=== PATIENT | female | born 1945 | race Caucasian/White ===

== ENCOUNTER 2019-10-16 11:10 | Outpatient (CLI) | payer MEDICARE, SELFPAY ==
--- NOTE | ~2019-10-16 | XR_ITS ---
EXAMINATION: XR abdomen/kub 1V INDICATION: Other specified symptoms in size involving the digestive abdominal and back pain, CVA ten derness TECHNIQUE: Supine views of the abdomen were obtained on 2 radiographs. COMPARISON: None FINDINGS: The bowel gas pattern is normal. Phleboliths are noted in the pelvis. There are no dilated loops of bowel. The visualized lung bases are clear. Changes of bilateral total hip arthroplasty are noted. Severe lumbar spondylosis is noted. IMPRESSION: 1. No radiographic correlate for the patient's symptoms. Reviewed, dictated and finalized at location A.
== END 2019-10-16 11:11 | disposition home or self-care (01) ==
LOC: ANHIMG 11:20
PROVIDERS: PCP Family Medicine; Visit Provider Nurse Practitioner Family
DX: R19.8 Other specified symptoms and signs involving the digestive system and abdomen (principal); M54.9 Dorsalgia, unspecified
CPT/HCPCS: 74018

== ENCOUNTER 2020-01-27 10:36 | Outpatient (NON) | payer MEDICARE, BC, SELFPAY ==
[2020-01-27 14:44] LABS: Influenza Control Positive
[2020-01-27 22:32] LABS: SARS-CoV-2 RNA PCR Negative
== END 2020-01-27 10:37 ==
PROVIDERS: PCP Family Medicine; Visit Provider Nurse Practitioner Family
DX: Z20.828 Contact with and (suspected) exposure to other viral communicable diseases (principal); J06.9 Acute upper respiratory infection, unspecified
CPT/HCPCS: 87635; 87804; C9803; U0003

== ENCOUNTER 2020-02-20 09:01 | Inpatient (IN) | payer MEDICARE, BC, SELFPAY ==
--- NOTE | ~2020-02-20 | XR_ITS ---
XR chest 1V portable 02/20/2020 10:44 Indication: Cough. Dyspnea. Procedure: AP portable chest Comparison: No prior studies for comparison. Findings: Heart size upper normal. No focal air space disease, pulmonary edema, pleural effusion or s uspected pneumothorax. No acute osseous abnormality. Impression: 1: No acute cardiopulmonary disease. Reviewed, dictated and finalized at location A. ISITIONS LOGISTICS ANALYST Impression: 1: No acute cardiopulmonary disease.
--- NOTE | ~2020-02-20 | CT_ITS ---
EXAMINATION: CT abdomen pelvis w con DATE: 02/20/2020 11:06 INDICATION: Abdominal pain TECHNIQUE: Computed tomography (CT) of the abdomen and pelvis was performed with 100 cc Omnipaque 350 intravenous contrast. The dose-length product was 1367.62 mGy-cm. Automated exposure control and ite rative reconstruction technique were employed. COMPARISON: None. FINDINGS: Lung bases are unremarkable. Dependent atelectasis. Heart size normal. Mild atherosclerosis. No aneurysm. Fatty infiltration of the liver. Small subcentimeter hypodensity r ight hepatic lobe, most likely benign cyst or hemangioma. The spleen, pancreas, right adrenal gland a nd right kidney are unremarkable. Small subcentimeter hypodensities of the left kidney, most likely b enign cysts. No hydronephrosis. There are gallstones. Nonobstructive bowel gas pattern. There are micha ateral hip arthroplasties creating significant streak artifact limiting evaluation of the pelvis. The re are nodules in the left adrenal gland, largest measuring 1.9 cm, likely benign adenomas. Nonobstru ctive bowel gas pattern. No lymphadenopathy. No free air or free fluid. IMPRESSION: 1. Gallstones. 2: Hepatic steatosis. 3: Left adrenal nodules, largest measuring 1.9 cm, likely benign adenomas. Reviewed, dictated and finalized at location A. ECTOR PAWNSHOP DETAIL
[2020-02-20 09:21] VITALS: BP 186/100; PULSE 66; RESP 18; TEMP 35.8; O2SAT 95
--- NOTE | 2020-02-20 09:35 | ECG_ITS ---
Measurements Intervals Jackson Rate: 68 P: 58 KS: 185 QRS: 52 QRSD: 145 T: 49 QT: 411 QTc: 439 Interpretive Statements SINUS RHYTHM RIGHT BUNDLE BRANCH BLOCK BASELINE ARTIFACT- I, II, III, AVR, AVF, V6 ABNORMAL ECG Electronically Signed On 02-20-2020 14:21:23 DIRECTOR OF CASEWORK DEPARTMENT by Jose Graves D.O.
[2020-02-20] MEDS: ONDANSETRON INJ 4 MG/2 ML VIAL IV PUSH (09:48)
[2020-02-20] MEDS: MORPHINE SULFATE (*CRX) 4 MG/ML INJ IV PUSH ×2 (09:49→14:43)
[2020-02-20] MEDS: DICYCLOMINE HCL INJ 20 MG/2 ML VIAL IM (09:50)
[2020-02-20 09:52] LABS: Hematocrit 46.7 % (37.0-47.0); Hemoglobin 14.9 g/dL (12.0-15.0); Mean Corpuscular HGB Conc 31.9 g/dl (32-36); Mean Corpuscular Hemoglobin 28.5 pg (26-34); Mean Corpuscular Volume 89.5 fl (80-100); Mean Platelet Volume 9.5 fl (7.4-10.4); Platelet Count Result 239 k/mm3 (150-375); Red Blood Count 5.22 M/mm3 (4.2-5.4); Red Cell Distribution Width 13.2 % (11.5-14.5); White Blood Count 20.3 K/mm3 (4.5-10.0)
[2020-02-20] MEDS: SODIUM CHLORIDE 0.9% IV 1,000 ML 999 ML IV CONT (09:52)
[2020-02-20 10:03] LABS: Lymphocytes Absolute Manual 1.62 K/mm3 (1.1-4.5); Monocytes Absolute Manual 1.42 K/mm3 (0.1-0.90); Monocytes Percent Manual 7 % (3-9); Neutrophils Percent Manual 85 % (46-73); Platelet Estimate Adequate (Adequate); Total Cells Counted 100
[2020-02-20 10:05] LABS: Alanine Aminotransferase 22 U/L (4-35); Albumin Level 4.3 g/dL (3.5-5.1); Alkaline Phosphatase 93 U/L (38-126); Anion Gap 6 mmol/L (8-16); Aspartate Amino Transferase 27 U/L (14-36); Bilirubin,Total 0.5 mg/dL (0.2-1.3); Blood Urea Nitrogen 14 mg/dL (7-17); Calcium 10.8 mg/dL (8.4-10.2); Carbon Dioxide 29 mmol/L (22-30); Chloride 103 mmol/L (98-107); Estimated CRCL calculation 73 ml/min; Estimated Glomerular Filt Rate > 60; Glucose 148 mg/dL (65-105); Lipase 86 U/L (23-300); Potassium 4.6 mmol/L (3.4-5.0); Sodium 138 mmol/L (137-145)
[2020-02-20 10:06] LABS: Lactic Acid Reflex 2.4 mmol/L (0.7-2.1)
[2020-02-20 10:16] LABS: Troponin I < 0.012 ng/mL (0.000-0.034)
[2020-02-20 10:19] LABS: Add Urine Microscopic? YES; Appearance Urine Clear (Clear); Bilirubin Urine Negative (Negative); Blood Urine Negative (Negative); Budding Yeast Urine Present /hpf; Calcium Oxalate Crystals Urine Present /hpf; Color Urine Yellow (Yellow); Glucose Urine UA Negative (Negative); Ketones Urine Negative (Negative); Leukocyte Esterase Ur Negative LEU/UL (Negative); Mucus Urine Moderate /lpf; Nitrate Urine Negative (Negative); Protein Urine 2+ mg/dL (Negative); RBC Urine 51-75 /hpf (0-2); Squamous Epithelial Cell Urine Rare /hpf (Few); Urobilinogen Urine Negative mg/dL (<2.0)
[2020-02-20 10:24] LABS: Specific Grav Ur 1.031 (1.001-1.035)
[2020-02-20 12:51] LABS: Reflex Lactic Acid Yes or No Add Lactic
--- NOTE | 2020-02-20 13:35 | ED.GENADULT ---
HPI - General Adult General Chief complaint: Unspecified Stated complaint: Pain All Over Time Seen by Provider: 02/20/20 09:27 History of Present Illness HPI narrative: Patient 74-year-old female who presents emerged part with chief complaint of abdominal pain. Patient states he started having pain today and in her back and then radiated around to her abdomen. The patient states she felt nauseated vomited a couple times and then noticed that she is had some soft stool. Patient denies diarrhea denies fever denies chills reports that she was recently treated with antibiotics for bronchitis by her foaming machine operator. Patient reports symptoms are not improved by anything. Patient reports that she has had an appendectomy before in the past Related Data Home Medications Medication Instructions Recorded Confirmed desloratadine 5 mg tablet 5 mg PO DAILY 12/12/18 01/20/20 fluticasone furoate 200 1 inhalation INHALATION DAILY 12/12/18 01/20/20 mcg/actuation blister powder for inhalation furosemide 20 mg tablet 20 mg PO QAM 12/12/18 01/20/20 gabapentin 300 mg capsule 300 mg PO DAILY 12/12/18 01/20/20 lansoprazole 15 mg capsule,delayed 15 mg PO DAILY 12/12/18 01/20/20 release meloxicam 15 mg tablet 15 mg PO DAILY 12/12/18 01/20/20 montelukast 10 mg tablet 10 mg PO DAILY 12/12/18 01/20/20 sertraline 100 mg tablet 100 mg PO DAILY 02/20/19 01/20/20 Allergies Allergy/AdvReac Type Severity Reaction Status Date / Time adhesive Allergy Rash Verified 01/20/20 10:39 epinephrine Allergy Rash Verified 01/20/20 10:39 latex Allergy Rash Verified 01/20/20 10:39 Penicillins Allergy rash Verified 01/20/20 10:39 Sulfa (Sulfonamide Allergy Rash Verified 01/20/20 10:39 Antibiotics) Review of Systems Review of Systems: Narrative: A 10 system review of systems was completed on the patient and is negative except for what is stated in the HPI. Nursing and ancillary documentation was reviewed. [facility] Past Medical History Medical History Anxiety and depression Body mass index (BMI) of 40.1 to 44.9 in adult Constipation Facial dermatitis Mild persistent asthma Mixed hyperlipidemia DANIEL (obstructive sleep apnea) Screen for colon cancer Torn rotator cuff Vitamin B12 deficiency Social History Social History Smoking status: Never smoker Alcohol intake: never Exam Narrative: Exam Narrative: GENERAL: Well-appearing, well-nourished, and in no acute distress. HEAD: Normocephalic, atraumatic. EYES: PERRLA and EOMI. ENT: Nares clear, no rhinorrhea or epistaxis. Mucous membranes moist. NECK: Supple. CHEST: Clear to auscultation. No respiratory distress. HEART: Regular rate and rhythm. No murmur heard. Normal peripheral pulses. ABDOMEN: Soft, diffuse mild tenderness, nondistended, normal active bowel sounds. EXTREMITIES: Normal range of motion. No edema. SKIN: Warm, dry, no rash. NEURO: No focal deficits. Alert and oriented x3. PSYCH: Normal mood and affect. Course Course Emergency Course: Patient CT scan showed no significant abnormalities. White blood cell count was significantly elevated at 20. Patient also had a mildly elevated lactic acid blood cultures were obtained she has received IV fluids and pain control in the emergency department given the leukocytosis and lactic acidosis the case was discussed with the hospitalist and the patient will be admitted to the hospital service for observation. Vital Signs Vital signs: Vital Signs Temperature 35.8 C L 02/20/20 09:21 Pulse Rate 66 02/20/20 09:21 Respiratory Rate 18 02/20/20 09:21 Blood Pressure 186/100 H 02/20/20 09:21 Pulse Oximetry 95 02/20/20 09:21 Temperature 35.8 C L 02/20/20 09:21 Pulse Rate 66 02/20/20 09:21 Respiratory Rate 18 02/20/20 09:21 Blood Pressure 186/100 H 02/20/20 09:21 Pulse Oximetry 95 02/20/20 09
--- NOTE | 2020-02-20 14:47 | PC.NURSE ---
report given to RN on 3rd floor. RN aware that this RN will start new SL and given pain meds.
--- NOTE | 2020-02-20 14:49 | PC.NURSE ---
new SL placed in right FA. morphine given. patient updated. unable to draw lactic acid. lab notified.
[2020-02-20 15:05] VITALS: BP 120/81; PULSE 103; RESP 18; TEMP 36.9; O2SAT 95; BMI 43.1
--- NOTE | 2020-02-20 15:05 | PC.NURSE ---
This patient, Bethany Wilson, was admitted to Medical Room 340-01. Patient/family oriented to hospital policies and general routines including ID bracelet, bed and alarms, visiting hours, pain management, procedures, bathroom and other care routines, personal items, smoking policy, room service/diet, and visiting hours. Information on how to activate the Rapid Response Team has been discussed. Patient/Family are encouraged to report perceived risks to care and to ask questions if they do not understand what they are told or what they should do.
[2020-02-20 15:21] LABS: Lactic Acid 1.9 mmol/L (0.7-2.1)
--- NOTE | 2020-02-20 16:41 | PC.NURSE ---
Placed patient s home medications (artificial tears -1 bottle and albuterol MDI inhaler) brought here from home in plastic bag. 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
[2020-02-20] MEDS: SODIUM CHLORIDE 0.9% IV 1,000 ML 125 ML IV CONT (17:01)
[2020-02-20 17:37] LABS: CRP 1.5 mg/dL (<1.0)
[2020-02-20 18:00] LABS: Erythrocyte Sedimentation Rate 36 mm/hr (0-20)
[2020-02-20 18:13] LABS: Hemoglobin A1C 5.6 % (<5.7)
--- NOTE | 2020-02-20 18:32 | PC.NURSE ---
Patient voiced that her son can bring in home medication, welchol, from home for her to use here.
--- NOTE | 2020-02-20 18:43 | PC.NURSE ---
Charge nurse locked patient valuable in safe.
--- NOTE | 2020-02-20 19:00 | PM.IMHP ---
H&P: HPI History of Present Illness Date/Time: 02/20/20 19:00 Chief Complaint: Pain all over. Narrative: This is a 74-year-old female with chronic pain, hypertension, dyslipidemia, sleep apnea, and several other comorbidities presented to the emergency department earlier today from home with complaints of pain all over. She has chronic back pain however it was much worse today. She has a difficult time describing that pain but tells me that it was intense, starting in the back and radiating to the abdomen. It is almost like severe gas pain and seemed to be diffuse throughout the abdomen. Associated symptoms include nausea and dry heaves. Her workup in the emergency department was essentially unremarkable aside from a pretty significant leukocytosis and is in this setting that she is being admitted. She has not had fever, chills, or sweats. She has cholelithiasis but recently had an extensive workup for gallbladder disease which was reportedly unremarkable. No history of kidney stones. She denies dysuria. No bowel or bladder incontinence. No saddle anesthesia. Review of Systems Review of Systems: Narrative: Twelve systems were reviewed with pertinent positives and negatives as per HPI. Except as documented, all other systems were reviewed and are negative. [facility] Past Medical History Medical History (Updated 02/21/20 @ 16:12 by Anastasia Jackson PA-C) Anxiety and depression Cholelithiasis Chronic pain syndrome Hepatic steatosis Hypertension Mild persistent asthma Mixed hyperlipidemia Obstructive sleep apnea on CPAP Postoperative atrial fibrillation Not on long-term anticoagulation. Right bundle branch block Seborrheic dermatitis Spinal stenosis With neurogenic claudication. Vitamin B12 deficiency Surgical History Surgical History (Updated 02/21/20 @ 16:12 by Anastasia Jackson PA-C) History of appendectomy History of bilateral hip replacements History of bilateral knee replacement History of repair of left rotator cuff (~02/2019) Family History Family History (Updated 02/21/20 @ 16:13 by Anastasia Jackson PA-C) Father Heart disease Acute myocardial infarction Diabetes mellitus Mother Cancer Social History Social History (Updated 02/21/20 @ 16:14 by Anastasia Jackson PA-C) Social History: The patient lives in [place], moved to the area within the last year or so from [place]. Ambulates with a cane. Lifelong nonsmoker. No alcohol or illicit substance abuse. Son Amari Wilson is listed as her emergency contact. She wishes to be a full code. Spiritual care concerns: No Meds Home Medications and Allergies Home Medications Medication Instructions Recorded Confirmed Type furosemide 20 mg tablet 20 mg PO QAM PRN 12/12/18 02/20/20 History gabapentin 300 mg capsule 300 mg PO DAILY 12/12/18 02/20/20 History meloxicam 15 mg tablet 15 mg PO DAILY 12/12/18 02/20/20 History montelukast 10 mg tablet 10 mg PO DAILY 12/12/18 02/20/20 History colesevelam 625 mg tablet 1,875 mg PO BID #180 tablet 12/19/18 02/20/20 Rx sertraline 100 mg tablet 100 mg PO DAILY 02/20/19 02/20/20 History atorvastatin 10 mg tablet 10 mg PO DAILY #90 tablet 08/07/19 02/20/20 Rx ezetimibe 10 mg tablet 10 mg PO DAILY #90 tablet 08/07/19 02/20/20 Rx losartan 50 mg-hydrochlorothiazide 1 tablet PO DAILY #30 tablet 09/07/19 02/20/20 Rx 12.5 mg tablet duloxetine 30 mg capsule,delayed 30 mg PO DAILY #30 cap 10/04/19 02/20/20 Rx release budesonide-formoterol 2 puff INHALATION Q12H 02/20/20 02/20/20 History omeprazole 40 mg PO DAILY 02/20/20 02/20/20 History Allergies Allergy/AdvReac Type Severity Reaction Status Date / Time adhesive Allergy Rash Verified 01/20/20 10:39 epinephrine Allergy Rash Verified 01/20/20 10:39 latex Allergy Rash Verified 01/20/20 10:39 Penicillins Allergy rash Verified 01/20/20 10:39 Sulfa (Sulfonamide Allergy Rash Verified 01/20/20 10:39 Antibiotics) Vital Signs Vital Signs
[2020-02-20 21:25] VITALS: BP 141/64; PULSE 93; RESP 18; TEMP 36.9; O2SAT 94
[2020-02-20] MEDS: PANTOPRAZOLE 40 MG TABLET PO (21:47)
[2020-02-21] MEDS: SODIUM CHLORIDE 0.9% IV 1,000 ML 125 ML IV CONT ×2 (01:34→08:38)
[2020-02-21 05:49] VITALS: BP 150/71; PULSE 86; RESP 85; TEMP 37.2; O2SAT 18
[2020-02-21 06:03] LABS: Hematocrit 40.3 % (37.0-47.0); Hemoglobin 12.8 g/dL (12.0-15.0); Mean Corpuscular HGB Conc 31.8 g/dl (32-36); Mean Corpuscular Hemoglobin 29.1 pg (26-34); Mean Corpuscular Volume 91.6 fl (80-100); Mean Platelet Volume 9.7 fl (7.4-10.4); Platelet Count Result 197 k/mm3 (150-375); Red Cell Distribution Width 13.4 % (11.5-14.5); White Blood Count 23.4 K/mm3 (4.5-10.0)
[2020-02-21 06:18] LABS: Alanine Aminotransferase 17 U/L (4-35); Albumin Level 3.5 g/dL (3.5-5.1); Alkaline Phosphatase 63 U/L (38-126); Anion Gap 5 mmol/L (8-16); Aspartate Amino Transferase 24 U/L (14-36); Bilirubin,Total 0.7 mg/dL (0.2-1.3); Blood Urea Nitrogen 11 mg/dL (7-17); Calcium 9.9 mg/dL (8.4-10.2); Carbon Dioxide 27 mmol/L (22-30); Chloride 105 mmol/L (98-107); Estimated CRCL calculation 75 ml/min; Estimated Glomerular Filt Rate > 60; Glucose 111 mg/dL (65-105); Sodium 137 mmol/L (137-145)
[2020-02-21 06:31] LABS: Lymphocytes Absolute Manual 0.23 K/mm3 (1.1-4.5); Monocytes Absolute Manual 4.68 K/mm3 (0.1-0.90); Monocytes Percent Manual 20 % (3-9); Neutrophils Percent Manual 79 % (46-73); Total Cells Counted 100
[2020-02-21 08:00] VITALS: PULSE 86; RESP 85; O2SAT 18
[2020-02-21] MEDS: hydroCHLOROthiazide 12.5 MG CAPSULE PO (09:18)
[2020-02-21] MEDS: GABAPENTIN 300 MG CAPSULE PO (09:18)
[2020-02-21] MEDS: PANTOPRAZOLE 40 MG TABLET PO ×2 (09:19→20:06)
[2020-02-21] MEDS: EZETIMIBE 10 MG TABLET PO (09:19)
[2020-02-21] MEDS: MELOXICAM 7.5 MG TABLET 15 MG PO (09:19)
[2020-02-21] MEDS: MONTELUKAST SODIUM 10 MG TABLET PO (09:19)
[2020-02-21] MEDS: LOSARTAN POTASSIUM 50 MG TABLET PO (09:19)
[2020-02-21] MEDS: SERTRALINE HCL 50 MG TABLET 100 MG PO (09:19)
[2020-02-21] MEDS: DULoxetine HCL 30 MG CAPSULE.DR PO (09:20)
[2020-02-21] MEDS: ATORVASTATIN 10 MG TABLET PO (09:20)
--- NOTE | 2020-02-21 12:56 | WPDGICN ---
Assessment and Plan Assessment and plan (1) Acute generalized abdominal pain: Code(s): R10.84 - Generalized abdominal pain Status: Acute Assessment and Plan: had inflammatory markers and leukocytosis but denies fever, diarrhea and now she is feeling better ? gastroenteritis but had similar episode months ago will proceed with egd (also nausea) and colonoscopy (she is due anyways)- assess if colitis, etc (2) Elevated lactic acid level: Code(s): R79.89 - Other specified abnormal findings of blood chemistry Status: Acute Assessment and Plan: resolved (3) Nausea: Code(s): R11.0 - Nausea Status: Acute Assessment and Plan: egd (4) Leukocytosis: Qualifiers: Leukocytosis type: unspecified Qualified Code(s): D72.829 - Elevated white blood cell count, unspecified Code(s): D72.829 - Elevated white blood cell count, unspecified Status: Acute Assessment and Plan: afebrile, continue to monitor (5) DANIEL (obstructive sleep apnea): Code(s): G47.33 - Obstructive sleep apnea (adult) (pediatric) Status: Acute (6) Body mass index (BMI) of 40.1 to 44.9 in adult: Code(s): Z68.41 - Body mass index [BMI]40.0-44.9, adult Status: Acute (7) Acute exacerbation of chronic low back pain: Code(s): M54.5 - Low back pain; G89.29 - Other chronic pain Status: Acute Assessment and Plan: she has chronic pain in back, also is getting rehabilitation as ouptatient (8) Cholelithiasis: Code(s): K80.20 - Calculus of gallbladder without cholecystitis without obstruction Status: Acute Assessment and Plan: normal liver enzymes and no signs of cholecystitis by imaging, continue to monitor GI Consult Note Consult date/time: 02/21/20 12:56 Reason for consult: abdominal pain, nausea HPI: Bethany Wilson is a 74 year old female with history of hypertension, dyslipidemia, sleep apnea who came here with diffuse abdominal pain radiation from her back (she also has 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 First time had severe pain like this several months ago that lasted 2 days, she went to see her PCP back then and ordered XR, CT scan apparently no major findings and has been doing relatively at her baseline until 2 days ago pain again, started out in her back with radiation to her whole abdomen, rectum and nausea with dry heaves. She came to ER because of the weekend, given narcotics and admitted to the hospital. Noted elevated wbc with left shift and esr, also mild lactic acidosis but resolved, had normal liver enzymes and lipase. Denies fever, chills, or sweats. CT showed cholelithiasis and fatty liver infiltration without other major findings. She says that had colonoscopy more than 5 years ago and is due to have another one. She says that last month had flu like symptoms but influenza and covid test negative. Review of Systems Constitutional: Constitutional: Denies chills Eyes: Eyes: Denies blurry vision ENT: Reports Normal hearing present Cardiovascular: Cardiovascular: Denies chest pain Respiratory: Respiratory: Denies dyspnea on exertion Gastrointestinal: Gastrointestinal: Reports abdominal pain, Reports bloating and Reports nausea Genitourinary: Genitourinary: Reports flank pain Musculoskeletal: Musculoskeletal: Denies neck pain Integumentary/Breasts: Skin/Breast: Denies dry skin Neurologic: Denies headache(s) Psychiatric: Psychiatric: Denies confusion Endocrine: Endocrine: Denies cold intolerance Hematologic/Lymphatic: Hematologic/Lymphatic: Denies easy bleeding PMFSH Past Medical History Medical History (Updated 02/21/20 @ 13:06 by Basil Murphy MD) Anxiety and depression Cholelithiasis Chronic pain syndrome Hepatic steatosis Hypertension Mild persistent asthma Mixed hyperlipidemia Nausea Obstructive sleep apnea on CPAP Postoperative atrial fibrillation Not on lo
--- NOTE | 2020-02-21 14:57 | PM.IMPN ---
Progress Note: A&P Assessment and Plan (1) Cholelithiasis: Code(s): K80.20 - Calculus of gallbladder without cholecystitis without obstruction Status: Acute Assessment and Plan: Had GI consulted Planning on EGD and colonoscopy. (2) Nausea: Code(s): R11.0 - Nausea Status: Acute Assessment and Plan: Has been tolerating po thus far Supportive care (3) Acute exacerbation of chronic low back pain: Code(s): M54.5 - Low back pain; G89.29 - Other chronic pain Status: Acute Assessment and Plan: Pain management (4) Hypertension: Code(s): I10 - Essential (primary) hypertension Status: Acute Assessment and Plan: Continue home meds (5) Hyperglycemia: Code(s): R73.9 - Hyperglycemia, unspecified Status: Acute Assessment and Plan: ISS as needed (6) Elevated lactic acid level: Code(s): R79.89 - Other specified abnormal findings of blood chemistry Status: Acute Assessment and Plan: Unclear etiology Started Levofloxacin WBC is elevated. (7) DANIEL (obstructive sleep apnea): Code(s): G47.33 - Obstructive sleep apnea (adult) (pediatric) Status: Acute Assessment and Plan: Encourage the use of CPAP (8) Body mass index (BMI) of 40.1 to 44.9 in adult: Code(s): Z68.41 - Body mass index [BMI]40.0-44.9, adult Status: Acute Assessment and Plan: Carb consistent diet (9) Leukocytosis: Qualifiers: Leukocytosis type: unspecified Qualified Code(s): D72.829 - Elevated white blood cell count, unspecified Code(s): D72.829 - Elevated white blood cell count, unspecified Status: Acute Assessment and Plan: Started Levofloxacin Will trend Cholecystitis? CT abd/pel reviewed Will continue to monitor No left shift. Subjective Date/time seen: 02/21/20 14:57 I still have abdominal pain localized to the RUQ. Review of Systems Review of Systems: Narrative: Patient presented to ED with complains of pain in her lower back but now states that has pain in her RUQ Constitutional: Comments: no fevers, no chills, no rigors. ENT: Comments: no nasal congestion Cardiovascular: Comments: no chest pain. Respiratory: Comments: no sob. Gastrointestinal: Comments: RUQ pain, no n/v/ Musculoskeletal: Comments: back pain. Neurologic: Comments: no sensory motor deficit. Hematologic/Lymphatic: Comments: no LAP Exam Narrative: Exam Narrative: Lying in bed. Const: General: comfortable, alert, awake and Physically active Orientation/consciousness: patient oriented x3 HENMT: Head: normocephalic Face and sinus: normal facial exam Neck: Neck: no lymphadenopathy, supple and no JVD Resp: Auscultation: clear to auscultation bilaterally Cardio: Jugular venous distension: no JVD Rate: regular rate Rhythm: regular rhythm GI: GI Palp: Yes Soft to palpation, Yes No hepatosplenomegaly present and Yes Other GI palpation findings present (Engle positive.) Skin: General skin exam: normal color Lesions: no lesions Rashes: no rashes Wounds: no wounds Neuro: General: patient oriented x3 and CN's II-XI intact bilaterally Cranial nerves: Yes CN's II-XII intact bilaterally and Yes Equal, round and reactive pupils present Cognition (Neuro): normal cognition Speech: normal speech Motor exam (neuro): 5/5 motor strength present throughout Extrem: General: normal to inspection Objective Data Vital Signs Vital Signs: Vital Signs - 24 hr 02/20/20 15:05 02/20/20 21:25 02/21/20 05:49 Temperature 98.5 F 98.4 F 98.9 F Pulse Rate 103 H 93 86 Respiratory Rate 18 18 85 H Blood Pressure 120/81 141/64 H 150/71 H Pulse Oximetry 95 94 18 L 02/21/20 08:00 Temperature Pulse Rate 86 Respiratory Rate 85 H Blood Pressure Pulse Oximetry 18 L Intake/Output Intake/Output: Intake & Output 02/18/20 02/19/20 02/20/20 02/21/20 23:59 23:59 23:59 23:59 Intake Total 100
[2020-02-21 15:17] VITALS: BP 142/66; PULSE 90; RESP 16; TEMP 36.9; O2SAT 94
[2020-02-21] MEDS: PEG (High)/E-LYTE SOLN 4,000 ML BTL 4000 ML PO (17:18)
[2020-02-21] MEDS: COLESEVELAM 625 MG TABLET 1875 MG PO (17:19)
[2020-02-21] MEDS: ACETAMINOPHEN 500 MG TABLET 1000 MG PO (17:44)
[2020-02-21] MEDS: BISACODYL 5 MG TABLET EC 20 MG PO (17:46)
[2020-02-21 22:00] VITALS: BP 127/49; PULSE 78; RESP 18; TEMP 35.7; O2SAT 91
[2020-02-22] VITALS (10 sets, daily range): BP systolic 88–148; BP diastolic 50–88; PULSE 75–93; RESP 16–24; TEMP 36.4–37.4; O2SAT 92–99
[2020-02-22] MEDS: SODIUM CHLORIDE 0.9% IV 1,000 ML 75 ML IV CONT (00:54)
[2020-02-22] MEDS: MAGNESIUM CITRATE 300 ML BTL PO (04:37)
[2020-02-22] MEDS: LACTATED RINGERS 1,000 ML 150 ML IV CONT (11:05)
--- NOTE | 2020-02-22 11:14 | WPDANESEPPF ---
Anes - Initial Pre Proc Eval Procedure: Operation Date: 02/22/20 13:45 Proposed Procedures p Esophagogastroduodenoscopy & Colonoscopy - Basil Murphy MD Date/Time: 02/22/20 11:14 Surgeon: Ashutosh Pina MD Pre Op Diagnosis: Abdominal Pain,Leukocytosis,Elevated Lactic Acid Patient Data Age: 74 Gender: F Height: 5 ft 4 in Weight: 113.7 kg Last Vital Signs Temp 99.3 F 02/22/20 11:04 Pulse 93 02/22/20 11:04 Resp 24 H 02/22/20 11:04 BP 132/58 L 02/22/20 11:04 Pulse Ox 92 02/22/20 11:04 Allergies Allergy/AdvReac Type Severity Reaction Status Date / Time adhesive Allergy Rash Verified 01/20/20 10:39 epinephrine Allergy Rash Verified 01/20/20 10:39 latex Allergy Rash Verified 01/20/20 10:39 Penicillins Allergy rash Verified 01/20/20 10:39 Sulfa (Sulfonamide Allergy Rash Verified 01/20/20 10:39 Antibiotics) Home Medications Medication Instructions Recorded Confirmed Type furosemide 20 mg tablet 20 mg PO QAM PRN 12/12/18 02/20/20 History gabapentin 300 mg capsule 300 mg PO DAILY 12/12/18 02/20/20 History meloxicam 15 mg tablet 15 mg PO DAILY 12/12/18 02/20/20 History montelukast 10 mg tablet 10 mg PO DAILY 12/12/18 02/20/20 History colesevelam 625 mg tablet 1,875 mg PO BID #180 tablet 12/19/18 02/20/20 Rx sertraline 100 mg tablet 100 mg PO DAILY 02/20/19 02/20/20 History atorvastatin 10 mg tablet 10 mg PO DAILY #90 tablet 08/07/19 02/20/20 Rx ezetimibe 10 mg tablet 10 mg PO DAILY #90 tablet 08/07/19 02/20/20 Rx losartan 50 mg-hydrochlorothiazide 1 tablet PO DAILY #30 tablet 09/07/19 02/20/20 Rx 12.5 mg tablet duloxetine 30 mg capsule,delayed 30 mg PO DAILY #30 cap 10/04/19 02/20/20 Rx release budesonide-formoterol 2 puff INHALATION Q12H 02/20/20 02/20/20 History omeprazole 40 mg PO DAILY 02/20/20 02/20/20 History Patient hx anesthesia problems: none Family hx anesthesia problems: none [facility] Past Medical History Medical History (Updated 02/21/20 @ 16:12 by Anastasia Jackson PA-C) Anxiety and depression Cholelithiasis Chronic pain syndrome Hepatic steatosis Hypertension Mild persistent asthma Mixed hyperlipidemia Obstructive sleep apnea on CPAP Postoperative atrial fibrillation Not on long-term anticoagulation. Right bundle branch block Seborrheic dermatitis Spinal stenosis With neurogenic claudication. Vitamin B12 deficiency Surgical History Surgical History (Updated 02/21/20 @ 16:12 by Anastasia Jackson PA-C) History of appendectomy History of bilateral hip replacements History of bilateral knee replacement History of repair of left rotator cuff (~02/2019) Family History Family History (Updated 02/21/20 @ 16:13 by Anastasia Jackson PA-C) Father Heart disease Acute myocardial infarction Diabetes mellitus Mother Cancer Social History Social History (Updated 02/21/20 @ 16:14 by Anastasia Jackson PA-C) Social History: The patient lives in [place], moved to the area within the last year or so from [place]. Ambulates with a cane. Lifelong nonsmoker. No alcohol or illicit substance abuse. Son Amari Wilson is listed as her emergency contact. She wishes to be a full code. Spiritual care concerns: No Anes - Eval Final PreProcedure Day of Procedure 02/22/20 11:14 Patient weight: morbidly obese Heart: regular rate and rhythm Lungs: clear to auscultation Airway: Mallampati scale class III Neurological: alert and oriented Last oral intake: >/= 8 hours ASA classification: IV Emergent: no Anesthetic plan: proceed Anesthesia type and monitoring: general GIVS and standard monitoring Informed Consent: The patient's anesthetic plan and its attendant risks and benefits were discussed with the patient/family/POA. Questions were solicited and answers provided to the satisfaction of the patient/family/POA.
[2020-02-22] MEDS: BENZOCAINE (*SP) 60 ML SPRAY CAN (HURRICAINE) 1 SPRAY MUCOUS MEM (11:38)
--- NOTE | 2020-02-22 11:51 | SUR.OPER ---
EGD COMPLETED AT 1147, 1151 COLONOSCOPY STARTED
[2020-02-22] MEDS: COLESEVELAM 625 MG TABLET 1875 MG PO (14:09)
[2020-02-22] MEDS: GABAPENTIN 300 MG CAPSULE PO (14:10)
[2020-02-22] MEDS: ATORVASTATIN 10 MG TABLET PO (14:10)
[2020-02-22] MEDS: DULoxetine HCL 30 MG CAPSULE.DR PO (14:10)
[2020-02-22] MEDS: EZETIMIBE 10 MG TABLET PO (14:10)
[2020-02-22] MEDS: MONTELUKAST SODIUM 10 MG TABLET PO (14:11)
[2020-02-22] MEDS: MELOXICAM 7.5 MG TABLET 15 MG PO (14:11)
[2020-02-22] MEDS: PANTOPRAZOLE 40 MG TABLET PO (14:11)
[2020-02-22] MEDS: SERTRALINE HCL 50 MG TABLET 100 MG PO (14:11)
[2020-02-22] MEDS: LOSARTAN POTASSIUM 50 MG TABLET PO (14:16)
[2020-02-22] MEDS: hydroCHLOROthiazide 12.5 MG CAPSULE PO (14:16)
--- NOTE | 2020-02-22 15:23 | PM.DS ---
DS: Admitting Diagnosis Admitting Diagnosis Admitting Diagnosis: 1) Acute generalized abdominal pain: Code(s): R10.84 - Generalized abdominal pain Status: Acute (2) Elevated lactic acid level: Code(s): R79.89 - Other specified abnormal findings of blood chemistry Status: Acute (3) Leukocytosis: Qualifiers: Leukocytosis type: unspecified Qualified Code(s): D72.829 - Elevated white blood cell count, unspecified Code(s): D72.829 - Elevated white blood cell count, unspecified Status: Acute (4) Hypercalcemia: Code(s): E83.52 - Hypercalcemia Status: Acute (5) Hyperglycemia: Code(s): R73.9 - Hyperglycemia, unspecified Status: Acute (6) Cholelithiasis: Code(s): K80.20 - Calculus of gallbladder without cholecystitis without obstruction Status: Acute (7) Mild persistent asthma: Qualifiers: Asthma complication type: unspecified Qualified Code(s): J45.30 - Mild persistent asthma, uncomplicated Code(s): J45.30 - Mild persistent asthma, uncomplicated Status: Acute (8) Hypertension: Code(s): I10 - Essential (primary) hypertension Status: Acute (9) Obstructive sleep apnea on CPAP: Code(s): G47.33 - Obstructive sleep apnea (adult) (pediatric); Z99.89 - Dependence on other enabling machines and devices Status: Inactive (10) Chronic pain syndrome: Code(s): G89.4 - Chronic pain syndrome Status: Inactive (11) Anxiety and depression: Code(s): F41.9 - Anxiety disorder, unspecified; F32.9 - Major depressive disorder, single episode, unspecified Status: Acute (12) Acute exacerbation of chronic low back pain: Code(s): M54.5 - Low back pain; G89.29 - Other chronic pain Status: Acute DS: Discharge Diagnosis Discharge Diagnosis (1) Obstructive airway disease: Code(s): J44.9 - Chronic obstructive pulmonary disease, unspecified Status: Acute (2) Mixed restrictive and obstructive lung disease: Code(s): J43.9 - Emphysema, unspecified; J98.4 - Other disorders of lung Status: Acute (3) Isolated proteinuria: Code(s): R80.0 - Isolated proteinuria Status: Acute (4) Morbid (severe) obesity due to excess calories: Code(s): E66.01 - Morbid (severe) obesity due to excess calories Status: Acute (5) Hypertension: Qualifiers: Hypertension type: essential hypertension Qualified Code(s): I10 - Essential (primary) hypertension Code(s): I10 - Essential (primary) hypertension Status: Acute (6) Acute generalized abdominal pain: Code(s): R10.84 - Generalized abdominal pain Status: Acute (7) Elevated lactic acid level: Code(s): R79.89 - Other specified abnormal findings of blood chemistry Status: Acute (8) DANIEL (obstructive sleep apnea): Code(s): G47.33 - Obstructive sleep apnea (adult) (pediatric) Status: Acute (9) Mild persistent asthma: Qualifiers: Asthma complication type: unspecified Qualified Code(s): J45.30 - Mild persistent asthma, uncomplicated Code(s): J45.30 - Mild persistent asthma, uncomplicated Status: Acute (10) Body mass index (BMI) of 40.1 to 44.9 in adult: Code(s): Z68.41 - Body mass index [BMI]40.0-44.9, adult Status: Acute (11) Cholelithiasis: Qualifiers: Cholelithiasis location: gallbladder Cholecystitis presence: without cholecystitis Biliary obstruction: without biliary obstruction Qualified Code(s): K80.20 - Calculus of gallbladder without cholecystitis without obstruction Code(s): K80.20 - Calculus of gallbladder without cholecystitis without obstruction Status: Acute DS: Summary Hospital Course Reason for hospitalization: Back pain Hospital Course: XAMINATION: CT abdomen pelvis w con DATE: 02/20/2020 11:06 INDICATION: Abdominal pain TECHNIQUE: Computed tomography (CT) of t
== END 2020-02-22 19:07 | disposition home or self-care (01) | DRG 392 ==
LOC: ANHED 13:41 → ANH3MED 14:16
PROVIDERS: Internal Medicine Gastroenterology; Physician Assistant; Admitting Provider Internal Medicine; Emergency Provider Emergency Medicine; PCP Family Medicine; Visit Provider Internal Medicine
PROC: 0DJ08ZZ Inspection of Upper Intestinal Tract, Via Natural or Artificial Opening Endoscopic (ICD-10-PCS; CPT 43235; principal; 2020-02-22 13:45)
DX: R10.84 Generalized abdominal pain (principal); Z68.41 Body mass index [BMI] 40.0-44.9, adult; E66.01 Morbid (severe) obesity due to excess calories; K21.00 Gastro-esophageal reflux disease with esophagitis, without bleeding; K64.4 Residual hemorrhoidal skin tags; K63.5 Polyp of colon; K57.30 Diverticulosis of large intestine without perforation or abscess without bleeding; R79.89 Other specified abnormal findings of blood chemistry; D72.829 Elevated white blood cell count, unspecified; R73.9 Hyperglycemia, unspecified; E83.52 Hypercalcemia; K80.20 Calculus of gallbladder without cholecystitis without obstruction; J43.9 Emphysema, unspecified; J98.4 Other disorders of lung; J45.30 Mild persistent asthma, uncomplicated; I10 Essential (primary) hypertension; G47.33 Obstructive sleep apnea (adult) (pediatric); M54.5 Low back pain; G89.4 Chronic pain syndrome; F32.9 Major depressive disorder, single episode, unspecified; F41.9 Anxiety disorder, unspecified; E78.2 Mixed hyperlipidemia; R80.0 Isolated proteinuria; Z79.899 Other long term (current) drug therapy; Z88.0 Allergy status to penicillin; Z88.2 Allergy status to sulfonamides; Z99.89 Dependence on other enabling machines and devices
CPT/HCPCS: 36415; 71045; 74177; 80053; 81001; 83036; 83605; 83690; 84443; 84484; 85025; 85652; 86140; 87040; 88305; 93005; 96361; 96372; 96374; 96375; 96376; 99285; A9270; G0378; J0500; J1956; J2270; J2405; J2704; J7030; J7120; Q9967

== ENCOUNTER 2020-02-25 08:49 | Outpatient (CLI) | payer MEDICARE, BC, SELFPAY ==
--- NOTE | 2020-02-26 17:53 | WPDPFTINT ---
PFT Interpretation This is a pulmonary function test with pre and post-bronchodilator spirometry, plethysmography and diffusing capacity. The test was performed and results interpreted in accordance with the 2019 and 2005 ATS/ERS Task Force guidelines respectively using the Lupillo/Stephanie reference equations. Findings: Spirometry: There is decreased maximal expiratory airflow at all lung volumes with a concave expiratory flow tracing. The pre-bronchodilator FVC is 1.63 L, 60% predicted. The FEV1 is 1.17 L, 61% predicted. The FEV1: FVC ratio is 71%. The post bronchodilator FVC is 1.51 L, representing an 8% decrease. The post bronchodilator FEV1 is 1.15 L, representing a 1% decrease. Plethysmography: Total lung capacity is 3.66 L, 77% predicted. The functional residual capacity is 2.27 L, 117% predicted. The residual volume is 2.02 L, 103% predicted. Diffusing capacity the absolute diffusion capacity is 14.4, 56% predicted. The diffusing capacity corrected for alveolar volume is 4.54, 131% predicted. Impression: There is a combined obstructive and restrictive ventilatory abnormality. There are no guidelines to assign the severity of obstruction or restriction with a combined abnormality. In my opinion, given the mildly concaved expiratory flow tracing, normal FEV1:FVC ratio and mildly decrease in total lung volumes, I would say there is a mild obstructive abnormality and a mild restrictive abnormality resulting in a moderate reduction in the FEV1. There is no significant improvement after inhaling a single dose of albuterol. The absolute diffusing capacity is moderately decreased but increased when corrected for alveolar volume. There are no prior studies for comparison.
== END 2020-02-25 08:50 | disposition home or self-care (01) ==
PROVIDERS: PCP Family Medicine; Visit Provider Internal Medicine Critical Care Medicine
DX: J44.9 Chronic obstructive pulmonary disease, unspecified (principal)
CPT/HCPCS: 94060; 94726; 94729

== ENCOUNTER 2020-03-04 09:20 | Outpatient (CLI) | payer MEDICARE, BC, SELFPAY ==
--- NOTE | 2020-04-02 17:28 | WPDHOMESLEEP ---
Sleep Study - Home Unattended Date of Study: 03/04/20 Ordering Provider: Johnathan Nettles MD Interpreting Provider: Adilene Sam MD Home Sleep Study Type: Apnea Link Air Height: 1.63 m Weight: 112.491 kg Body Mass Index: 42.5 Neck Circumference (inches): 15.5 [place]: 9 Reason for Sleep Study history of sleep apnea, has a CPAP machine which is over 5 years old and needs to have it replaced Sleep History Bethany Wilson is a 74-year-old woman who has used a CPAP machine for the last several years. She had a home sleep test in [place] over 5 years ago, and her machine is the original one. She also has asthma and allergies. She occasionally snores. She frequently awakens at night with a cough and this is a recent finding. She occasionally awakens from sleep feeling short of breath. She frequently has trouble sleeping with a cold. She has coughing which is related to her asthma and allergies. She rarely wakes up gasping for breath at night. She occasionally has breathing problems at night observed by others. She is told by others that she snores. She frequently sweats excessively at night. She never notices her heart pounding or beating irregularly at night. She occasionally falls asleep during the day, rarely involuntarily, never while driving. She does become fatigued during the day. She does not have loss of muscle tone was strong emotion. She does not have daytime difficulties due to excessive sleepiness, she is retired. She does not feel afraid to go to sleep. She occasionally has nightmares. She occasionally remembers her dreams. She occasionally has racing thoughts. She frequently feels sad and depressed. She occasionally has anxiety. She always has orthopedic pain and muscular tension. She rarely notices parts of her body jerking. She rarely kicks at night. She frequently has spasms in her legs and this gives her uncomfortable feelings as well as pain in her legs at night. She rarely has morning jaw pain. She occasionally grinds her teeth during sleep. She constantly is bothered by pain during the day. She frequently has awakened by pain at night. She constantly wakes up feeling stiff in the morning with sore achy muscles and pain in the neck and spine. She has dizziness, acid reflux, memory problems, uses antacids regularly, has chronic pain and headaches. Normal bedtime is variable. She falls asleep sometimes more quickly than at other times. She wakes up 3-5 times during the night to use the bathroom and sometimes to deal with pain. Sometimes she uses a cold compress on her legs for spasms. Her wake-up time varies as well. She estimates 4-8 hours of interrupted sleep each night. She sometimes takes naps in the afternoon or evening. A short nap is not always refreshing. She is usually drowsy in the morning and this can last anywhere between 1 and 3 hours. She feels better in the earlier part of the day compared to the evening. Habits: Quit tobacco 21 years ago. Caffeine usually 1 decaf in the morning. No alcohol. No recreational drugs. [facility] Past Medical History Medical History (Updated 04/02/20 @ 17:41 by Adilene Sam MD) Allergies Anxiety and depression Cholelithiasis Chronic pain syndrome Hemorrhoid Hepatic steatosis Hypertension Mild persistent asthma Mixed hyperlipidemia Mixed restrictive and obstructive lung disease Morbid (severe) obesity due to excess calories Obstructive sleep apnea on CPAP Postoperative atrial fibrillation Not on long-term anticoagulation. Right bundle branch block Seborrheic dermatitis Spinal stenosis With neurogenic claudication. Vitamin B12 deficiency Surgical History Surgical History History of appendectomy History of bilateral hip replacements History of bilateral knee replacement History of repair of left rotator cuff (~02/2019) Family History Family History (Reviewed 04/02/20 @ 17:41
[2020-04-02 17:48] VITALS: BMI 42.5
== END 2020-03-04 09:21 | disposition home or self-care (01) ==
LOC: ANHCSM 09:21
PROVIDERS: PCP Family Medicine; Visit Provider Internal Medicine Critical Care Medicine
DX: G47.33 Obstructive sleep apnea (adult) (pediatric) (principal)
CPT/HCPCS: 95806

== ENCOUNTER 2020-03-18 10:18 | Outpatient (CLI) | payer MEDICARE, BC, SELFPAY ==
--- NOTE | ~2020-03-18 | NM_ITS ---
EXAMINATION: NM hepatobiliary wo pharm DATE: 03/18/2020 14:38 INDICATION: Calculus of gallbladder without cholecystitis. COMPARISON: CT abdomen and pelvis 02/20/2020 TECHNIQUE: 4.5 mCi Tc-99m mebrofenin (Choletec) was administered intravenously. Scintigraphic images of the abdomen were obtained for one hour. Delayed images were obtained at 4 hours. FINDINGS: There is normal clearance of radiotracer from the blood pool. There is homogeneous tracer u ptake by the liver. Activity progresses to the bowel. IMPRESSION: 1. No activity in the gallbladder at 4 hours, consistent with acute cholecystitis. Reviewed, dictated and finalized at location A. ICULTURE TEACHER IMPRESSION: 1. No activity in the gallbladder at 4 hours, consistent with acute cholecysti tis.
== END 2020-03-18 10:19 | disposition home or self-care (01) ==
PROVIDERS: PCP Family Medicine; Visit Provider Family Medicine
DX: K80.20 Calculus of gallbladder without cholecystitis without obstruction (principal)
CPT/HCPCS: 78226; A9537

== ENCOUNTER → 2020-04-09 01:32 | Outpatient (CLI) | payer MEDICARE, BC, SELFPAY ==
[2020-04-09 19:42] LABS: SARS-CoV-2 RNA PCR Negative
== END ==
PROVIDERS: PCP Family Medicine; Visit Provider Surgery
DX: Z01.812 Encounter for preprocedural laboratory examination (principal); Z20.822 Contact with and (suspected) exposure to COVID-19
CPT/HCPCS: C9803; U0003; U0005

== ENCOUNTER 2020-04-12 02:08 | Day surgery (SDC) | payer MEDICARE, BC, SELFPAY ==
[2020-04-08 14:05] VITALS: BMI 41.8
--- NOTE | 2020-04-11 16:04 | WPDANESEPPF ---
Anes - Initial Pre Proc Eval Procedure: Operation Date: 04/12/20 12:00 Proposed Procedures p Laparoscopic Cholecystectomy, Possible Open - Louis Foote DO Date/Time: 04/11/20 16:04 Surgeon: Louis Foote DO Pre Op Diagnosis: Acute Calculous Cholecystitis Patient Data Age: 74 Gender: F Height: 1.63 m Weight: 110.45 kg Allergies Allergy/AdvReac Type Severity Reaction Status Date / Time adhesive Allergy Rash Verified 04/12/20 15:50 epinephrine Allergy Rash Verified 04/12/20 15:50 latex Allergy Rash Verified 04/12/20 15:50 Penicillins Allergy rash Verified 04/12/20 15:50 Sulfa (Sulfonamide Allergy Rash Verified 04/12/20 15:50 Antibiotics) Home Medications Medication Instructions Recorded Confirmed Type furosemide 20 mg tablet 20 mg PO QAM PRN 12/12/18 04/12/20 History gabapentin 300 mg capsule 300 mg PO DAILY 12/12/18 04/12/20 History montelukast 10 mg tablet 10 mg PO DAILY 12/12/18 04/12/20 History colesevelam 625 mg tablet 1,875 mg PO BID #180 tablet 12/19/18 04/12/20 Rx sertraline 100 mg tablet 100 mg PO DAILY 02/20/19 04/12/20 History losartan 50 mg-hydrochlorothiazide 1 tablet PO DAILY #30 tablet 09/07/19 04/12/20 Rx 12.5 mg tablet duloxetine 30 mg capsule,delayed 30 mg PO DAILY #30 cap 10/04/19 04/12/20 Rx release budesonide-formoterol 2 puff INHALATION Q12H 02/20/20 04/12/20 History aspirin 81 mg PO DAILY 02/22/20 04/12/20 History atorvastatin 10 mg tablet 10 mg PO DAILY #90 tablet 02/28/20 04/12/20 Rx ezetimibe 10 mg tablet 10 mg PO DAILY #90 tablet 02/28/20 04/12/20 Rx hydrocortisone-pramoxine 2.5 %-1 % 1 applic RECTAL QID PRN #30 g 03/11/20 04/12/20 Rx rectal cream diazepam 2 mg tablet 2 mg PO BID PRN #2 tablet 03/16/20 04/12/20 Rx albuterol sulfate 2 mg tablet 2 mg PO Q8H 04/05/20 04/12/20 History budesonide-formoterol HFA 80 2 puff INHALATION Q12H 04/05/20 04/12/20 History mcg-4.5 mcg/actuation aerosol inhaler desloratadine 5 mg tablet 5 mg PO DAILY 04/05/20 04/12/20 History omeprazole 20 mg capsule,delayed 20 mg PO DAILY 04/05/20 04/12/20 History release albuterol sulfate 2 puff INHALATION Q4H PRN 04/12/20 04/12/20 History hydrocodone-acetaminophen 1 tablet PO Q4H PRN #10 tablet 04/13/20 Rx Patient hx anesthesia problems: none Family hx anesthesia problems: none PMFSH Past Medical History Medical History Allergies Anxiety and depression Cholelithiasis Chronic pain syndrome Hemorrhoid Hepatic steatosis Hypertension Mild persistent asthma Mixed hyperlipidemia Mixed restrictive and obstructive lung disease Morbid (severe) obesity due to excess calories Obstructive sleep apnea on CPAP Postoperative atrial fibrillation Not on long-term anticoagulation. Right bundle branch block Seborrheic dermatitis Spinal stenosis With neurogenic claudication. Vitamin B12 deficiency Surgical History Surgical History History of appendectomy History of bilateral hip replacements History of bilateral knee replacement History of repair of left rotator cuff (~02/2019) Family History Family History Father Heart disease Acute myocardial infarction Diabetes mellitus Mother Cancer Sibling No problems noted. Social History Social History Social History: The patient lives in [place], moved to the area within the last year or so from [place]. Ambulates with a cane. No alcohol or illicit substance abuse. Son Amari Wilson is listed as her emergency contact. She wishes to be a full code. Smoking packs per day: 1 Smoking cigarettes per day: 20.0 Years smoked: 35 Smoking pack-years: 35.00 Smoking status: Former smoker Tobacco type: cigarettes Second hand tobacco smoke exposure: No Ad
[2020-04-12] VITALS (16 sets, daily range): BP systolic 115–141; BP diastolic 51–72; PULSE 63–90; RESP 16–20; TEMP 36.1–37.1; O2SAT 93–99
[2020-04-12] MEDS: ACETAMINOPHEN 500 MG TABLET 1000 MG PO (11:23)
[2020-04-12] MEDS: LACTATED RINGERS 1,000 ML 30 ML IV CONT (11:45)
[2020-04-12] MEDS: KETOROLAC 15 MG/ML VIAL (*BKC) IV PUSH (11:45)
[2020-04-12 11:56] LABS: Amylase 79 U/L (30-110)
--- NOTE | 2020-04-12 11:56 | WPDHPUPDATE1 ---
History and Physical Update Update Date/Time: 04/12/20 11:56 History and Physical has been reviewed, including an updated exam of the patient. There are NO changes in the patient's condition. Risks, benefits, and alternatives have been discussed and questions answered. Patient agrees to proceed with procedure.
[2020-04-12] MEDS: CLINDAMYCIN 900 MG/D5W 50 ML 900 MG/50 ML PIGGYBACK 50 MG IVPB (12:30)
[2020-04-12] MEDS: BUPIVACAINE/EPINEPHRINE 0.5% 30 ML VIAL INFILTRATE (12:59)
--- NOTE | 2020-04-12 14:04 | PM.PROC ---
Procedure Note - Detailed Date of procedure: 04/12/20 Pre-op diagnosis: Acute Calculous Cholecystitis Post-op diagnosis: same Procedure performed: Laparoscopic Cholecystectomy Description of procedure: Procedure as well as risks, benefits, and alternatives were discussed with patient. Written consent was obtained and placed in chart prior to procedure. The patient was brought back to surgical suite. Patient was placed in supine position on operating table. Time-out was done to confirm patient and procedure. Patient was then intubated by the anesthesia department. Abdomen was prepped and draped in sterile fashion using chlorhexidine prep. 0.5% bupivacaine with epinephrine was infiltrated at each site of incision. A 5 millimeter incision was made near the umbilicus, and a 5 millimeter Optiview trocar was advanced through the abdominal layers under direct visualization. Once inside the abdominal cavity, carbon dioxide was insufflated to create a pneumoperitoneum. The camera was inserted and the abdomen was inspected. No immediate abnormalities were identified. The patient was placed in reverse Trendelenburg position and rotated slightly to the left. An 11 millimeter incision was made in the subxiphoid region, and an 11 millimeter trocar was inserted under direct visualization. Two 5 millimeter incisions were made in the right upper quadrant, and two 5 millimeter trocars were inserted under direct visualization. The gallbladder was identified and grasped at the fundus and retracted superiorly. It was then grasped at the infundibulum retracted laterally. Careful dissection around the neck of the gallbladder was performed using blunt dissection with a [place] grasper and hook electrocautery. The cystic duct was identified, and a window was created behind it. The cystic artery was also identified and a window was created behind it. The critical view of safety was identified, visualizing the cystic duct running directly into the neck of the gallbladder, and the cystic artery running directly into the wall of the gallbladder. A 5 millimeter clip pharmacy consultant was then used to place 2 clips proximally and 1 clip distally on both the cystic duct and cystic artery. They were then both transected using endoscopic scissors. Once safely away from the amisha hepatitis, the gallbladder was dissected free from the liver bed using hook electrocautery. Hemostasis was achieved along the way. The gallbladder was removed completely and then removed through the subxiphoid port. The liver bed was then inspected. Hemostasis appeared adequate, and our clips appeared secure. The area was gently irrigated with sterile saline. No other abnormalities were seen. The patient was flattened out in bed, and 1 final inspection was made around the abdominal cavity. The subxiphoid port was removed, and a Romero Augie cone was used to approximate the fascia with an 0-Vicryl simple interrupted suture. The remaining ports were then removed under direct visualization, the camera was removed, and the pneumoperitoneum was released. The skin of the incisions was approximated using 4-0 Monocryl subcuticular sutures. Exofin glue was applied on top. The patient was then awakened from anesthesia, extubated, and transferred to recovery. Anesthesia: GETA and local (0.5% bupivicaine with epi) Surgeon: Louis Foote DO Estimated blood loss (mL): 20 Drains: No Packing: No Pathology: yes Complications: No immediate complications Condition: stable (Patient tolerated procedure well, and is currently resting comfortably in recovery.) Disposition: same day Findings: This is a 74-year-old woman who presented with a prior acute episode of epigastric and right upper quadrant pain that radiated to her back. She presented to the emergency department and was found to have a high white blood count. She was admitted for further treatment and underwent endoscopy which was only showing mild esophagitis and g
[2020-04-12] MEDS: fentaNYL CITRATE INJ (*CRX) 100 MCG/2 ML VIAL 25 MCG IV PUSH ×2 (14:33→14:38)
[2020-04-12] MEDS: HYDROmorphone HCL INJ (*CRX) 1 MG/ML SYR 0.25 MG IV PUSH ×4 (14:47→15:02)
--- NOTE | 2020-04-12 15:47 | ADMGEN ---
This patient, Bethany Wilson, was admitted to Medical Room 250-01. Patient/family oriented to hospital policies and general routines including ID bracelet, bed and alarms, visiting hours, pain management, procedures, bathroom and other care routines, personal items, smoking policy, room service/diet, and visiting hours. Information on how to activate the Rapid Response Team has been discussed. Patient/Family are encouraged to report perceived risks to care and to ask questions if they do not understand what they are told or what they should do.
[2020-04-12] MEDS: LACTATED RINGERS 1,000 ML 100 ML IV CONT (17:09)
[2020-04-12] MEDS: COLESEVELAM 625 MG TABLET 1875 MG PO (17:12)
[2020-04-12] MEDS: HYDROcodone/acetaminophen (*CRX) 5-325 MG TABLET 1 TAB PO (23:20)
[2020-04-13 01:17] VITALS: BP 119/54; PULSE 73; RESP 18; TEMP 36.2; O2SAT 95
[2020-04-13 02:47] VITALS: PULSE 74; RESP 15; O2SAT 95
[2020-04-13 05:17] VITALS: BP 118/43; PULSE 52; RESP 20; TEMP 36.2; O2SAT 99
[2020-04-13] MEDS: HYDROcodone/acetaminophen (*CRX) 5-325 MG TABLET 1 TAB PO ×2 (05:24→13:41)
[2020-04-13 05:34] LABS: Hematocrit 38.8 % (37.0-47.0); Hemoglobin 12.5 g/dL (12.0-15.0); Mean Corpuscular HGB Conc 32.2 g/dl (32-36); Mean Corpuscular Hemoglobin 28.8 pg (26-34); Mean Corpuscular Volume 89.4 fl (80-100); Mean Platelet Volume 9.9 fl (7.4-10.4); Platelet Count Result 207 k/mm3 (150-375); Red Blood Count 4.34 M/mm3 (4.2-5.4); Red Cell Distribution Width 13.6 % (11.5-14.5)
[2020-04-13 05:47] LABS: Anion Gap 5 mmol/L (8-16); Blood Urea Nitrogen 18 mg/dL (7-17); Carbon Dioxide 28 mmol/L (22-30); Chloride 103 mmol/L (98-107); Estimated CRCL calculation 64 ml/min; Estimated Glomerular Filt Rate > 60; Glucose 133 mg/dL (65-105); Potassium 4.3 mmol/L (3.4-5.0); Sodium 136 mmol/L (137-145)
[2020-04-13] MEDS: ASPIRIN 81 MG CHEWABLE TABLET PO (08:31)
[2020-04-13] MEDS: ATORVASTATIN 10 MG TABLET PO (08:31)
[2020-04-13] MEDS: COLESEVELAM 625 MG TABLET 1875 MG PO (08:32)
[2020-04-13] MEDS: GABAPENTIN 300 MG CAPSULE PO (08:33)
[2020-04-13] MEDS: hydroCHLOROthiazide 12.5 MG CAPSULE PO (08:33)
[2020-04-13] MEDS: DULoxetine HCL 30 MG CAPSULE.DR PO (08:33)
[2020-04-13] MEDS: EZETIMIBE 10 MG TABLET PO (08:33)
[2020-04-13] MEDS: SERTRALINE HCL 50 MG TABLET 100 MG PO (08:34)
[2020-04-13] MEDS: MONTELUKAST SODIUM 10 MG TABLET PO (08:34)
[2020-04-13] MEDS: LORATADINE 10 MG TABLET PO (08:34)
[2020-04-13] MEDS: LOSARTAN POTASSIUM 50 MG TABLET PO (08:34)
[2020-04-13] MEDS: PANTOPRAZOLE 40 MG TABLET PO (08:34)
[2020-04-13 08:37] VITALS: BP 129/61; PULSE 79; O2SAT 94
--- NOTE | 2020-04-13 10:12 | PM.DS ---
DS: Admitting Diagnosis Admitting Diagnosis Admitting Diagnosis: Acute calculous cholecystitis, obstructive sleep apnea DS: Discharge Diagnosis Discharge Diagnosis (1) Acute calculous cholecystitis: Code(s): K80.00 - Calculus of gallbladder with acute cholecystitis without obstruction Status: Acute (2) DANIEL (obstructive sleep apnea): Code(s): G47.33 - Obstructive sleep apnea (adult) (pediatric) Status: Acute (3) BMI 40.0-44.9, adult: Code(s): Z68.41 - Body mass index [BMI]40.0-44.9, adult Status: Acute DS: Summary Hospital Course Reason for hospitalization: Acute calculous cholecystitis Hospital Course: This is a 74-year-old woman who presented with recurrent episodes of right upper quadrant abdominal pain. She previously was hospitalized and upper endoscopy showed no evidence cause pain. She then had further workup as an outpatient which included a HIDA scan. This showed nonvisualization of the gallbladder at 4 hrs suggestive of acute cholecystitis. Decision was made to proceed with laparoscopic cholecystectomy. Due to patient's comorbidities, she was kept overnight for outpatient extended recovery. She underwent laparoscopic cholecystectomy on 04/12/2020. Surgery was uncomplicated and she was monitored overnight. Her breathing remained stable and she remained hemodynamically stable. On postop day 1 her pain was well controlled, she was up ambulating, and she was tolerating her low-fat diet. She was discharged on postop day 1. Status at Discharge Functional status at discharge: uses cane/walker Overall status at discharge: patient is progressing back to baseline Time Spent with Patient Time attestation: Total time spent providing and/or coordinating discharge services: Time spent: Less than 30 minutes Exam GI: Inspection: incision (Intact with glue) GI Palp: Yes Tenderness to palpation present (GI) (Appropriate incisional) DS: Data Data Completed and Pending Pending studies at discharge: Pending at discharge 04/12/20 12:52 Surgical [PTH] Routine Labs on day of discharge: Labs from last 24 hours 04/13/20 04/13/20 04/12/20 05:12 05:12 11:22 WBC 20.0 H RBC 4.34 Hgb 12.5 Hct 38.8 MCV 89.4 MCH 28.8 MCHC 32.2 RDW 13.6 Plt Count 207 MPV 9.9 Sodium 136 L Potassium 4.3 Chloride 103 Carbon Dioxide 28 Anion Gap 5 L BUN 18 H Creatinine 0.80 Estim Creat Clear Calc 64 Estimated GFR > 60 Glucose 133 H Calcium 10.0 Amylase 79 Discharge Plan Discharge Patient Disposition: Home, Self-Care Discharge Instructions: DISCHARGE INSTRUCTION SHEET FOR HERNIA, GALLBLADDER AND APPENDIX SURGERIES DR. LAI PATIENT TO TAKE HOME 1. May shower, no soaking in bath x 2weeks. 2. Call office for: Wound increasingly painful or bleeding Vomiting Fever of greater than 101 degrees 3. If no bowel movement for three days, take 1 oz. (30 ml) Milk of Magnesia or MiraLax 17g 1 to 2 times daily. 4. No heavy lifting > 10-15 pounds x weeks for hernia repairs and 2 weeks for laparoscopic cholecystectomy or appendectomy. 5. No driving for 3 days or while taking narcotic pain medications. 6. Ice to surgical site for 48 hours (30 min on, then 30 min off). 7. Up walking 10-30 minutes three times per day. 8. Resume previous home medications. 9. Follow-up 10-14 days in office for wound check or as previously scheduled. ([phone]) 10. Oral pain medications prescription to be sent to pharmacy. Take Tylenol 500mg every 6 hours and Ibuprofen 600mg every 6 hours for the first 2 days, then as needed. 11. NUTRITION: Start out by drinking fluids and increase your diet as tolerated. If you experience nausea, try dry toast, crackers, and 7-UP. If nausea or vomiting persists, contact your surgeon?s office. 12. Gallbladders-Low Fat Diet for 2 week
[2020-04-13 11:25] VITALS: BP 129/53; PULSE 51; RESP 20; TEMP 36.3; O2SAT 97
== END 2020-04-13 13:56 | disposition home or self-care (01) ==
LOC: ANHSURGERY 10:10 → ANH2MED 15:38
PROVIDERS: PCP Family Medicine; Visit Provider Surgery
PROC: 0FT44ZZ Resection of Gallbladder, Percutaneous Endoscopic Approach (ICD-10-PCS; CPT 47562; principal; 2020-04-12 12:00)
DX: K80.12 Calculus of gallbladder with acute and chronic cholecystitis without obstruction (principal); I10 Essential (primary) hypertension; E78.2 Mixed hyperlipidemia; F41.8 Other specified anxiety disorders; K76.0 Fatty (change of) liver, not elsewhere classified; J45.30 Mild persistent asthma, uncomplicated; G47.33 Obstructive sleep apnea (adult) (pediatric); E53.8 Deficiency of other specified B group vitamins; M48.00 Spinal stenosis, site unspecified; G89.4 Chronic pain syndrome; Z79.82 Long term (current) use of aspirin; Z79.891 Long term (current) use of opiate analgesic; Z79.51 Long term (current) use of inhaled steroids; Z87.891 Personal history of nicotine dependence; E66.01 Morbid (severe) obesity due to excess calories; Z68.41 Body mass index [BMI] 40.0-44.9, adult
CPT/HCPCS: 47562; 36415; 80048; 82150; 85027; 86850; 86900; 86901; 88304; 94640; A9270; J0330; J1100; J1170; J1885; J2405; J2704; J2710; J3010; J7030; J7120

== ENCOUNTER → 2020-05-16 00:26 | Outpatient (CLI) | payer MEDICARE, BC, SELFPAY ==
[2020-05-16 19:28] LABS: SARS-CoV-2 RNA PCR Negative
== END ==
PROVIDERS: PCP Family Medicine; Visit Provider Internal Medicine Critical Care Medicine
DX: Z01.812 Encounter for preprocedural laboratory examination (principal); Z20.822 Contact with and (suspected) exposure to COVID-19
CPT/HCPCS: C9803; U0003; U0005

== ENCOUNTER 2020-05-18 09:11 | Outpatient (CLI) | payer MEDICARE, BC, SELFPAY ==
--- NOTE | 2020-06-03 12:06 | WPDSLEEPSTUD ---
Sleep Study Date of Study: 05/18/20 Ordering Provider: Maurisio Orr APRN Interpreting Physician: Adilene Sam MD Sleep Study Type: CPAP Titration Height: 1.63 m Weight: 105.994 kg Body Mass Index: 40.1 Neck Circumference (inches): 17 Gordon: 5 Reason for Sleep Study Home Sleep Test March 04, 2020, known DANIEL in the past, AHI 24, equally split between obstructive and central events. Presents for CPAP titration Sleep History Bethany Wilson is a 74-year-old woman who has used a CPAP machine for the last several years. She had a home sleep test in [place] over 5 years ago, and her machine is the original one. She also has asthma and allergies. She occasionally snores. She frequently awakens at night with a cough and this is a recent finding. She occasionally awakens from sleep feeling short of breath. She frequently has trouble sleeping with a cold. She has coughing which is related to her asthma and allergies. She rarely wakes up gasping for breath at night. She occasionally has breathing problems at night observed by others. She is told by others that she snores. She frequently sweats excessively at night. She never notices her heart pounding or beating irregularly at night. She occasionally falls asleep during the day, rarely involuntarily, never while driving. She does become fatigued during the day. She does not have loss of muscle tone with strong emotion. She does not have daytime difficulties due to excessive sleepiness, she is retired. She does not feel afraid to go to sleep. She occasionally has nightmares. She occasionally remembers her dreams. She occasionally has racing thoughts. She frequently feels sad and depressed. She occasionally has anxiety. She always has orthopedic pain and muscular tension. She rarely notices parts of her body jerking. She rarely kicks at night. She frequently has spasms in her legs and this gives her uncomfortable feelings as well as pain in her legs at night. She rarely has morning jaw pain. She occasionally grinds her teeth during sleep. She constantly is bothered by pain during the day. She frequently has awakened by pain at night. She constantly wakes up feeling stiff in the morning with sore achy muscles and pain in the neck and spine. She has dizziness, acid reflux, memory problems, uses antacids regularly, has chronic pain and headaches. Normal bedtime is variable. She falls asleep sometimes more quickly than at other times. She wakes up 3-5 times during the night to use the bathroom and sometimes to deal with pain. Sometimes she uses a cold compress on her legs for spasms. Her wake-up time varies as well. She estimates 4-8 hours of interrupted sleep each night. She sometimes takes naps in the afternoon or evening. A short nap is not always refreshing. She is usually drowsy in the morning and this can last anywhere between 1 and 3 hours. She feels better in the earlier part of the day compared to the evening. Habits: Quit tobacco 21 years ago. Caffeine usually 1 decaf in the morning. No alcohol. No recreational drugs. [facility] Past Medical History Medical History Allergies Anxiety and depression Cholelithiasis Chronic pain syndrome Hemorrhoid Hepatic steatosis Hypertension Mild persistent asthma Mixed hyperlipidemia Mixed restrictive and obstructive lung disease Morbid (severe) obesity due to excess calories Obstructive sleep apnea on CPAP Postoperative atrial fibrillation Not on long-term anticoagulation. Right bundle branch block Seborrheic dermatitis Spinal stenosis With neurogenic claudication. Vitamin B12 deficiency Surgical History Surgical History History of appendectomy History of bilateral hip replacements History of bilateral knee replacement History of repair of left rotator cuff (~02/2019) Hx laparoscopic cholecystectomy 3
[2020-06-03 12:08] VITALS: BMI 40.1
== END 2020-05-18 09:12 | disposition home or self-care (01) ==
LOC: ANHCSM 09:12
PROVIDERS: PCP Family Medicine; Visit Provider Nurse Practitioner Family
DX: G47.33 Obstructive sleep apnea (adult) (pediatric) (principal); E66.9 Obesity, unspecified; Z68.41 Body mass index [BMI] 40.0-44.9, adult; G89.29 Other chronic pain; Z79.899 Other long term (current) drug therapy
CPT/HCPCS: 95811

== ENCOUNTER 2020-06-24 11:54 | Outpatient (CLI) | payer MEDICARE, BC, SELFPAY | END 2020-06-24 11:55 | disposition home or self-care (01) | PROVIDERS: PCP Family Medicine; Visit Provider Nurse Practitioner Family | DX: D64.9 Anemia, unspecified (principal) | CPT/HCPCS: 36415; 82728 ==

== ENCOUNTER → 2020-10-27 08:15 | Outpatient (CLI) | payer MEDICARE, BC, SELFPAY ==
[2020-10-27 19:52] LABS: SARS-CoV-2 RNA PCR Negative
== END ==
PROVIDERS: PCP Family Medicine; Visit Provider Nurse Practitioner Family
DX: R68.89 Other general symptoms and signs (principal); Z20.822 Contact with and (suspected) exposure to COVID-19
CPT/HCPCS: C9803; U0003; U0005

== ENCOUNTER 2022-02-26 17:21 | Emergency (ER) | payer MEDICARE, BC, SELFPAY ==
--- NOTE | ~2022-02-26 | XR_ITS ---
EXAM: XR lumbar spine 2-3V DATE: 02/26/2022 19:30 HISTORY: lower LEFT BACK PAIN, NO INJURY . COMPARISON: CT abdomen and pelvis 02/20/2020. FINDINGS: 5 nonrib-bearing lumbar-type vertebral bodies. Pedicles intact. 9 mm anterolisthesis at L4 -5. Vertebral body heights preserved. Multilevel severe and moderate degrees of disc space narrowing. Vacuum phenomenon at multiple levels. Abdominal aortic calcification without evident aneurysm. Multi level severe facet sclerosis and hypertrophy. IMPRESSION: Grade 2 anterolisthesis at L4-5. Multilevel severe degenerative disc disease and facet ar thropathy. No acute fracture or traumatic malalignment detected in the lumbar spine. Reviewed, dictated and finalized at location K. [employer]NALY[employer] IMPRESSION: Grade 2 anterolisthesis at L4-5. Multilevel severe degenerative dis c disease and facet arthropathy. No acute fracture or traumatic malalignment de tected in the lumbar spine.
--- NOTE | ~2022-02-26 | CT_ITS ---
IMPRESSION: No definite acute abdominopelvic process. Note, metal artifact from bilateral h ip arthroplasties completely obscures pelvic detail, such that a small distal u reteral or UVJ stone could be missed. EXAMINATION: CT abdomen pelvis wo con DATE: 02/26/2022 21:16 INDICATION: Kidney stone TECHNIQUE: Computed tomography (CT) of the abdomen and pelvis was performed without intravenous contr ast. Automated exposure control and iterative reconstruction technique were employed. The dose-length product was 1388.22 mGy-cm. COMPARISON: 02/20/2020. FINDINGS: Lower thorax: Stable left lower lobe pulmonary nodule. Aortic valve and coronary artery calcification Liver: Left lobe cyst/hemangioma. Biliary/Gallbladder: Gallbladder is absent. No bile duct dilation. Pancreas: No mass or duct dilation. Spleen: Normal. Adrenals:Left adrenal adenoma. Kidneys: No mass, stone, or hydronephrosis. GI tract: No small or large bowel dilation. The appendix is not visualized Diverticulosis without div erticulitis. Mesentery/Peritoneum: No ascites, mass, or free air. Retroperitoneum: No mass. Atherosclerotic abdominal aortic and/or arterial calcifications. Pelvis: The distal pelvis including the distal ureters and bilateral UVJs is completely obscured by s ignificant metallic artifact from the hip arthroplasties. Soft Tissues: Soft tissues and body wall unremarkable. Bones: No acute osseous finding. IMPRESSION: No definite acute abdominopelvic process. Note, metal artifact from bilateral hip arthroplasties comp letely obscures pelvic detail, such that a small distal ureteral or UVJ stone could be missed. Reviewed, dictated and finalized at location K. [facility]
[2022-02-26 17:57] VITALS: BP 161/70; PULSE 61; RESP 14; TEMP 36.8; O2SAT 97
--- NOTE | 2022-02-26 20:05 | ED.BACK ---
HPI - Back Pain/Injury General Chief Complaint: Back Pain/Injury Stated Complaint: back pain Time Seen by Provider: 02/26/22 20:05 Source: patient and family Mode of arrival: ambulatory Limitations: no limitations History of Present Illness HPI Narrative: Patient is a 76 years old white female came to the emergency room by a private car, with a cane complaining of severe left lower back pain started after taking a shower, going back to bed climbing onto steps to get on top of the bed. And felt sudden sharp severe pain left lower back, no radiation. Associated with nausea. Pain was 20 out of 10, currently 10 out of 10. Patient is talking nonstop, smiling and does not look in pain or distress, sitting on a wheelchair. Patient denies any numbness or weakness or radiation of pain to left lower extremity. patient denies bowel dysfunction, bladder dysfunction, altered sensation, focal weakness, or saddle numbness,. Patient is telling me that she have chronic lower back pain, for years, was seen by neurosurgeon recently, MRI February 14, 2022 showed spinal stenosis and chronic arthritis, she denies any fever, chills, vomiting, diarrhea, constipation, vaginal bleeding or discharge or abdominal pain Related Data Home Medications Medication Instructions Recorded Confirmed furosemide 20 mg tablet 20 mg PO QAM PRN Edema 12/12/18 01/11/22 aspirin 81 mg tablet 81 mg PO DAILY 02/22/20 01/11/22 omeprazole 20 mg capsule,delayed 20 mg PO DAILY 04/05/20 01/11/22 release gabapentin 300 mg capsule 300 mg PO DAILY PRN 12/28/21 01/11/22 Allergies Allergy/AdvReac Type Severity Reaction Status Date / Time adhesive Allergy Rash Verified 02/26/22 21:05 epinephrine Allergy Rash Verified 02/26/22 21:05 latex Allergy Rash Verified 02/26/22 21:05 Penicillins Allergy rash Verified 02/26/22 21:05 Sulfa (Sulfonamide Allergy Rash Verified 02/26/22 21:05 Antibiotics) Review of Systems Review of Systems: All systems reviewed & are unremarkable except as noted in HPI and below PMFSH Past Medical History Medical History Allergies Anxiety and depression BMI greater than 40 Cholelithiasis Chronic pain syndrome Conjunctivitis Hemorrhoid Hepatic steatosis Hypertension Lumbar radiculopathy Lumbar spondylosis Mild persistent asthma Mixed hyperlipidemia Mixed restrictive and obstructive lung disease Morbid (severe) obesity due to excess calories Obstructive sleep apnea on CPAP DANIEL (obstructive sleep apnea) Polyuria Postoperative atrial fibrillation Not on long-term anticoagulation. Right bundle branch block Seborrheic dermatitis Spinal stenosis With neurogenic claudication. Urinary urgency Vitamin B12 deficiency Surgical History Surgical History History of appendectomy History of bilateral hip replacements History of bilateral knee replacement History of repair of left rotator cuff (~02/2019) Hx laparoscopic cholecystectomy 04/12/20 Family History Family History Father Heart disease Acute myocardial infarction Diabetes mellitus Mother Cancer Sibling No problems noted. Social History Social History Social History: The patient lives in [place], moved to the area within the last year or so from [place]. Ambulates with a cane. No alcohol or illicit substance abuse. Son Amari Wilson is listed as her emergency contact. She wishes to be a full code. Smoking packs per day: 1 Smoking cigarettes per day: 20.0 Years smoked: 35 Smoking pack-years: 35.00 Smoking status: Former smoker Tobacco type: cigarettes Second hand tobacco smoke exposure: Yes Additional smoking assessment comments: STATES 2PK/DAY/30+YRS, QUIT 1998 Alcohol intake: never Substance use: ne
[2022-02-26 20:42] VITALS: BP 181/67; PULSE 50; RESP 20; O2SAT 97
[2022-02-26] MEDS: HYDROmorphone HCL INJ (*CRX) 1 MG/ML SYR IM (20:45)
[2022-02-26] MEDS: ONDANSETRON HCL ODT 4 MG TABLET PO (20:45)
[2022-02-26] MEDS: diazePAM (*CRX) 5 MG TABLET PO (21:05)
[2022-02-26 22:26] VITALS: BP 155/111; PULSE 58; RESP 20; O2SAT 95
== END 2022-02-26 22:27 | disposition home or self-care (01) ==
PROVIDERS: Emergency Provider Emergency Medicine; PCP Family Medicine
DX: M54.50 Low back pain, unspecified (principal); G89.4 Chronic pain syndrome; I10 Essential (primary) hypertension; J45.30 Mild persistent asthma, uncomplicated; E78.2 Mixed hyperlipidemia; J44.9 Chronic obstructive pulmonary disease, unspecified; R39.15 Urgency of urination; E53.8 Deficiency of other specified B group vitamins; E66.01 Morbid (severe) obesity due to excess calories; Z68.41 Body mass index [BMI] 40.0-44.9, adult; Z79.82 Long term (current) use of aspirin; Z96.643 Presence of artificial hip joint, bilateral; Z96.653 Presence of artificial knee joint, bilateral; Z87.891 Personal history of nicotine dependence; M51.36 Other intervertebral disc degeneration, lumbar region
CPT/HCPCS: 72100; 74176; 96372; 99284; A9270; J1170

== ENCOUNTER 2022-05-23 16:04 | Emergency (ER) | payer MEDICARE, BC, SELFPAY ==
--- NOTE | ~2022-05-23 | CT_ITS ---
EXAMINATION: CT abdomen pelvis w con DATE: 05/23/2022 20:49 INDICATION: lower abdominal pain TECHNIQUE: Computed tomography (CT) of the abdomen and pelvis was performed with 100 mL Omnipaque-350 intravenous contrast. Automated exposure control and iterative reconstruction technique were employe d. The dose-length product was 1648.06 mGy-cm. COMPARISON: 02/26/2022. FINDINGS: Lower thorax: Aortic valve and coronary artery calcification. Minimal dependent atelectasis/scar. Sta ble left lower lobe pulmonary nodule. Liver: 12 mm left lobe hypodensity, likely cyst or hemangioma. Biliary/Gallbladder: Gallbladder is absent. No bile duct dilation. Pancreas: No mass or duct dilation. Spleen: Normal. Adrenals: Small left adrenal adenoma. Kidneys: Bilateral hypodensities that are too small to characterize but most likely represent cysts. No mass, stone, or hydronephrosis. GI tract: Small hiatal hernia. Mild distal esophageal and gastric wall edema. No small or large bowel dilation. Appendix not visualized. Diverticulosis without diverticulitis. Mesentery/Peritoneum: No ascites, mass, or free air. Retroperitoneum: No mass. Atherosclerotic abdominal aortic and/or arterial calcifications. Pelvis: Pelvic organs are partially obscured by metal artifact. Soft Tissues: Soft tissues and body wall unremarkable. Bones: No acute osseous finding. Uncomplicated appearing bilateral hip arthroplasties IMPRESSION: Mild esophagitis/gastritis. Otherwise, no acute abdominopelvic process detected. Reviewed, dictated and finalized at location K. IMPRESSION: Mild esophagitis/gastritis. Otherwise, no acute abdominopelvic process detected .
[2022-05-23 16:32] VITALS: BP 137/82; PULSE 78; RESP 18; TEMP 36.5; O2SAT 98
[2022-05-23 17:15] LABS: Basophils Absolute Auto 0.1 K/mm3 (0.0-0.1); Basophils Percent Auto 0.5 % (0.2-1.2); Eosinophils Percent Auto 0.1 % (0-4.4); Hematocrit 48.4 % (37.0-47.0); Hemoglobin 15.6 g/dL (12.0-15.0); Immature Granulocyte Absolute 0.14 K/mm3 (0.00-0.031); Immature Granulocyte Percent A 0.7 % (0-0.5); Lymphocytes Absolute Auto 2.39 K/mm3 (0.9-3.2); Lymphocytes Percent Auto 12.7 % (18.3-44.2); Mean Corpuscular HGB Conc 32.2 g/dl (32-36); Mean Corpuscular Hemoglobin 28.5 pg (26-34); Mean Corpuscular Volume 88.3 fl (80-100); Mean Platelet Volume 9.6 fl (7.4-10.4); Monocytes Absolute Auto 2.1 K/mm3 (0.1-0.6); Neutrophils Absolute Auto 14.1 K/mm3 (1.3-6.7); Platelet Count Result 248 k/mm3 (150-375); Red Blood Count 5.48 M/mm3 (4.2-5.4); Red Cell Distribution Width 13.3 % (11.5-14.5); White Blood Count 18.8 K/mm3 (4.5-10.0)
[2022-05-23 17:25] LABS: Alanine Aminotransferase 30 U/L (6-35); Albumin Level 4.6 g/dL (3.5-5.1); Alkaline Phosphatase 121 U/L (38-126); Anion Gap 7 mmol/L (8-16); Aspartate Amino Transferase 29 U/L (14-36); Bilirubin,Total 0.5 mg/dL (0.2-1.3); Blood Urea Nitrogen 15 mg/dL (7-17); Calcium 11.1 mg/dL (8.4-10.2); Carbon Dioxide 28 mmol/L (22-30); Chloride 102 mmol/L (98-107); Estimated Glomerular Filt Rate > 60; Glucose 100 mg/dL (65-110); Lipase 132 U/L (23-300); Potassium 4.6 mmol/L (3.4-5.0); Sodium 137 mmol/L (137-145)
--- NOTE | 2022-05-23 18:15 | PC.NURSE ---
pt refused iv at this time
[2022-05-23 19:23] VITALS: BP 142/75; PULSE 93; RESP 18; O2SAT 97
--- NOTE | 2022-05-23 19:45 | ED.ABDPAIN ---
HPI - Abdominal Pain General Chief Complaint: Abdominal Pain Stated Complaint: constipation Time Seen by Provider: 05/23/22 18:18 Source: patient Mode of arrival: ambulatory Limitations: no limitations History of Present Illness HPI narrative: Patient is a 76-year-old female who presents the ED with report of constipation. Patient reports having a history of recent constipation, which was resolved with mag citrate and Metamucil. Patient became constipated again this past week and reports her last bowel movement was last Saturday. She has been taking mag citrate, Metamucil, drinking plenty of water, eating prunes, drinking prune juice, but denied relief. She began having pain and pressure in her abdomen and rectal region, which prompted her presentation. Reported intermittent nausea, but denied vomiting. Denied fevers. Patient did have a very large bowel movement just prior to my evaluation in the ED bathroom. Denied any rectal bleeding or melena. She states she does feel relief of pressure, but still has some discomfort. She also mentions having bladder pressure and feeling urinary frequency. Denies dysuria, hematuria. Related Data Home Medications Medication Instructions Recorded Confirmed furosemide 20 mg tablet 20 mg PO QAM PRN Edema 12/12/18 04/30/22 aspirin 81 mg tablet 81 mg PO DAILY 02/22/20 04/30/22 omeprazole 20 mg capsule,delayed 20 mg PO DAILY 04/05/20 04/30/22 release gabapentin 300 mg capsule 300 mg PO DAILY PRN 12/28/21 04/30/22 clobetasol 0.05 % scalp solution 1 applic topical DAILY 04/03/22 04/30/22 pimecrolimus 1 % topical cream 1 applic topical ONCE 04/03/22 04/30/22 tacrolimus 0.1 % topical ointment 1 applic topical BID 04/03/22 04/30/22 Allergies Allergy/AdvReac Type Severity Reaction Status Date / Time adhesive Allergy Rash Verified 04/30/22 10:02 epinephrine Allergy Rash Verified 04/30/22 10:02 latex Allergy Rash Verified 04/30/22 10:02 Penicillins Allergy rash Verified 04/30/22 10:02 Sulfa (Sulfonamide Allergy Rash Verified 04/30/22 10:02 Antibiotics) Review of Systems Review of Systems: CONSTITUTIONAL: Denies fever, chills, or sweats. CARDIOVASCULAR: Denies chest pain. RESPIRATORY: Denies dyspnea. GASTROINTESTINAL: See HPI. GENITOURINARY: See HPI. SKIN: Denies rash or itching. MUSCULOSKELETAL: Denies back pain, joint pain, or myalgia. NEUROLOGIC: Denies headache, numbness, or weakness. All systems reviewed & are unremarkable except as noted in HPI and below PMFSH Past Medical History Medical History Allergies Anxiety and depression BMI greater than 40 Cholelithiasis Chronic pain syndrome Conjunctivitis Hemorrhoid Hepatic steatosis Hypertension Lumbar radiculopathy Lumbar spondylosis Mild persistent asthma Mixed hyperlipidemia Mixed restrictive and obstructive lung disease Morbid (severe) obesity due to excess calories Obstructive sleep apnea on CPAP DANIEL (obstructive sleep apnea) Polyuria Postoperative atrial fibrillation Not on long-term anticoagulation. Right bundle branch block Seborrheic dermatitis Spinal stenosis With neurogenic claudication. Urinary urgency Vitamin B12 deficiency Surgical History Surgical History History of appendectomy History of bilateral hip replacements History of bilateral knee replacement History of repair of left rotator cuff (~02/2019) Hx laparoscopic cholecystectomy 04/12/20 Family History Family History Father Heart disease Acute myocardial infarction Diabetes mellitus Mother Cancer Sibling No problems noted. Social History Social History Social History: The patient lives in [place], moved to the area within the last year or so from [place]. Ambul
[2022-05-23] MEDS: SODIUM CHLORIDE 0.9% IV 1,000 ML 999 ML IV CONT (20:27)
[2022-05-23 20:35] LABS: Appearance Urine Clear (Clear); Bacteria Urine None Seen /hpf; Bilirubin Urine Negative (Negative); Blood Urine Negative (Negative); Color Urine Yellow (Yellow); Glucose Urine UA Negative (Negative); Ketones Urine Negative (Negative); Leukocyte Esterase Ur 1+ LEU/UL (Negative); Nitrate Urine Negative (Negative); Non Pathogenic Casts 0-2; Protein Urine Negative (Negative); RBC Urine 0-2 /hpf (0-2); Specific Grav Ur 1.017 (1.001-1.035); Squamous Epithelial Cell Urine None seen /hpf (Few); Urobilinogen Urine 0.2 mg/dL (<2.0)
[2022-05-23 20:36] LABS: Add Urine Microscopic? YES
[2022-05-23 20:56] VITALS: BP 134/74; PULSE 86; RESP 15; O2SAT 95
[2022-05-23] MEDS: CEPHALEXIN 500 MG CAPSULE PO (21:59)
[2022-05-23 22:05] VITALS: BP 146/83; PULSE 84; RESP 18; TEMP 36.6; O2SAT 97
== END 2022-05-23 22:28 | disposition home or self-care (01) ==
PROVIDERS: General Practice; Emergency Provider Physician Assistant; PCP Family Medicine
DX: K59.00 Constipation, unspecified (principal); N39.0 Urinary tract infection, site not specified; D72.829 Elevated white blood cell count, unspecified; I10 Essential (primary) hypertension; J45.30 Mild persistent asthma, uncomplicated; J44.9 Chronic obstructive pulmonary disease, unspecified; E78.2 Mixed hyperlipidemia; E66.01 Morbid (severe) obesity due to excess calories; G47.33 Obstructive sleep apnea (adult) (pediatric); E53.8 Deficiency of other specified B group vitamins; F41.9 Anxiety disorder, unspecified; F32.A Depression, unspecified; Z79.82 Long term (current) use of aspirin; Z96.643 Presence of artificial hip joint, bilateral; Z96.653 Presence of artificial knee joint, bilateral; Z90.49 Acquired absence of other specified parts of digestive tract; K20.90 Esophagitis, unspecified without bleeding; K29.70 Gastritis, unspecified, without bleeding
CPT/HCPCS: 36415; 74177; 80053; 81001; 83690; 85025; 87086; 96360; 99284; A9270; J7030; Q9967

== ENCOUNTER 2022-09-18 12:22 | Outpatient (CLI) | payer MEDICARE, BC, SELFPAY ==
[2022-09-18 13:05] LABS: Hematocrit 48.3 % (37.0-47.0); Hemoglobin 15.1 g/dL (12.0-15.0); Mean Corpuscular HGB Conc 31.3 g/dl (32-36); Mean Corpuscular Hemoglobin 28.6 pg (26-34); Mean Corpuscular Volume 91.5 fl (80-100); Mean Platelet Volume 9.5 fl (7.4-10.4); Platelet Count Result 210 k/mm3 (150-375); Red Blood Count 5.28 M/mm3 (4.2-5.4); Red Cell Distribution Width 13.5 % (11.5-14.5); White Blood Count 9.8 K/mm3 (4.5-10.0)
[2022-09-18 13:14] LABS: Appearance Urine Clear (Clear); Bacteria Urine None Seen /hpf; Bilirubin Urine Negative (Negative); Blood Urine Negative (Negative); Color Urine Yellow (Yellow); Glucose Urine UA Negative (Negative); Ketones Urine Negative (Negative); Leukocyte Esterase Ur Trace LEU/UL (Negative); Nitrate Urine Negative (Negative); Non Pathogenic Casts 0-2; Protein Urine Negative (Negative); RBC Urine 0-2 /hpf (0-2); Specific Grav Ur 1.024 (1.001-1.035); Squamous Epithelial Cell Urine None seen /hpf (Few); pH Urine 5.5 (5.0-9.0)
[2022-09-18 13:18] LABS: Alanine Aminotransferase 25 U/L (6-35); Albumin Level 4.3 g/dL (3.5-5.1); Alkaline Phosphatase 87 U/L (38-126); Anion Gap 6 mmol/L (8-16); Aspartate Amino Transferase 25 U/L (14-36); Bilirubin,Total 0.4 mg/dL (0.2-1.3); Blood Urea Nitrogen 22 mg/dL (7-17); Calcium 11.1 mg/dL (8.4-10.2); Carbon Dioxide 27 mmol/L (22-30); Chloride 107 mmol/L (98-107); Estimated Glomerular Filt Rate > 60; Glucose 111 mg/dL (65-110); Potassium 4.4 mmol/L (3.4-5.0); Sodium 140 mmol/L (137-145)
[2022-09-18 13:27] LABS: Add Urine Microscopic? YES
[2022-09-18 13:46] LABS: INR 0.9; Partial Thromboplastin Time 24.8 SECONDS (22.3-36.8); Prothrombin Time 12.6 Seconds (11.1-14.7)
== END 2022-09-18 12:23 | disposition home or self-care (01) ==
LOC: ANHSURGERY 12:28
PROVIDERS: PCP Family Medicine; Visit Provider Neurological Surgery
DX: Z01.818 Encounter for other preprocedural examination (principal); E83.52 Hypercalcemia; M43.16 Spondylolisthesis, lumbar region
CPT/HCPCS: 36415; 80053; 81001; 85027; 85610; 85730; 86850; 86900; 86901; 87086

== ENCOUNTER 2022-09-21 19:34 | Inpatient (IN) | payer MEDICARE, SELFPAY ==
[2022-09-17 09:24] VITALS: BMI 38.2
--- NOTE | 2022-09-17 13:44 | PC.NURSE ---
Report to the Outpatient Waiting Room, entrance under the green pavilion located off [facility], at time __8:00AM on date __09/20/22 . Planned Procedure Time: __10:00AM . Time changes happen often and if your time is changed the preop area will call you the afternoon before. - You and your visitor will be asked to self-screen and do not enter if you have any COVID symptoms. - A mask is optional within the hospital at this time. Patients may have clear liquids (water, carbonated beverages, clear teas, apple juice) until 3 hours prior to surgery with a maximum of 20 ounces. - No food from midnight until time of surgery Take the following medications with a SIP of water the morning of surgery: __BREZTRI INHALER, DULOXETINE AND ALBUTEROL INHALER NEEDED, GABAPENTIN NEEDED DO NOT STOP ANY OF YOUR OTHER PRESCRIPTION MEDICATIONS PRIOR TO SURGERY ?EXCEPT THE FOLLOWING Medications to discontinue per physician __HOLD ASPIRIN PER DR RUBIO. HOLD ALL VITAMINS/SUPPLEMENTS 3 DAYS PRE-OP PER ANESTHESIA- LAST DOSE- 09/16/22 Please no make-up, nail urdu, hairspray, perfume, deodorant, or body powder the day of surgery. No jewelry (including any body piercings) or valuables the day of surgery, leave them at home. Please take a shower or bath the night before, or the morning of, surgery with an antibacterial soap. Wear comfortable, loose fitting clothing. Children are encouraged to wear pajamas. - Jewelry must be removed prior to entering the operating room. Rings and piercings that are not removed may be cut off. - The hospital will not accept responsibility for valuables. - Please leave all valuables, including medications, at home the day of surgery. If you are going home after surgery, a licensed school bus driver/teacher assistant must drive you home. - NO public transportation without another adult if you receive anesthesia. - We recommend that an adult stay with you for 24 hours following discharge. - We also recommend that you do not drive, make important decision, drink alcoholic beverages, or take any drugs that were not prescribed by your health care provider for at least 24 hours after your discharge time. Follow any additional instructions given to you from your surgeon. If you or anyone in your household have experienced Covid symptoms in the past week, please notify your surgeon or the nurse liaison at the phone number below for possible testing. Telephone instructions given to __PATIENT and asked if any additional questions and then verbalized understanding. Patient advised to call surgeon office or pre surgery nurse liaison [phone] if any additional questions.
--- NOTE | 2022-09-17 13:48 | PC.NURSE ---
Report to the Outpatient Waiting Room, entrance under the green pavilion located off [facility], at time __8:00AM on date __09/20/22 . Planned Procedure Time: __10:00AM . Time changes happen often and if your time is changed the preop area will call you the afternoon before. - You and your visitor will be asked to self-screen and do not enter if you have any COVID symptoms. - A mask is optional within the hospital at this time. Patients may have clear liquids (water, carbonated beverages, clear teas, apple juice) until 3 hours prior to surgery with a maximum of 20 ounces. - No food from midnight until time of surgery Take the following medications with a SIP of water the morning of surgery: ___BREZTRI INHALER, DULOXETINE AND ALBUTEROL INHALER NEEDED, GABAPENTIN NEEDED DO NOT STOP ANY OF YOUR OTHER PRESCRIPTION MEDICATIONS PRIOR TO SURGERY ?EXCEPT THE FOLLOWING Medications to discontinue per physician __HOLD ASPIRIN PER DR RUBIO. HOLD ALL VITAMINS/SUPPLEMENTS 3 DAYS PRE-OP PER ANESTHESIA- LAST DOSE 09/16/22 Please no make-up, nail korean, hairspray, perfume, deodorant, or body powder the day of surgery. No jewelry (including any body piercings) or valuables the day of surgery, leave them at home. Please take a shower or bath the night before, or the morning of, surgery with an antibacterial soap. Wear comfortable, loose fitting clothing. Children are encouraged to wear pajamas. - Jewelry must be removed prior to entering the operating room. Rings and piercings that are not removed may be cut off. - The hospital will not accept responsibility for valuables. - Please leave all valuables, including medications, at home the day of surgery. If you are going home after surgery, a licensed bulk delivery driver must drive you home. - NO public transportation without another adult if you receive anesthesia. - We recommend that an adult stay with you for 24 hours following discharge. - We also recommend that you do not drive, make important decision, drink alcoholic beverages, or take any drugs that were not prescribed by your health care provider for at least 24 hours after your discharge time. Follow any additional instructions given to you from your surgeon. If you or anyone in your household have experienced Covid symptoms in the past week, please notify your surgeon or the nurse liaison at the phone number below for possible testing. Telephone instructions given to __PATIENT and asked if any additional questions and then verbalized understanding. Patient advised to call surgeon office or pre surgery nurse liaison [phone] if any additional questions.
[2022-09-20] VITALS (16 sets, daily range): BP systolic 96–139; BP diastolic 49–80; PULSE 63–94; RESP 11–26; TEMP 36.4–37.1; O2SAT 92–98
[2022-09-20] MEDS: LACTATED RINGERS 1,000 ML 30 ML IV CONT ×2 (07:00→11:00)
--- NOTE | 2022-09-20 07:12 | WPDANESEPPF ---
Anes - Initial Pre Proc Eval Procedure: Operation Date: 09/20/22 08:00 Proposed Procedures p L4-5 Posterior Lumbar Interbody Fusion - Ever Rodriguez MD Date/Time: 09/20/22 07:12 Surgeon: Ever Rodriguez MD Pre Op Diagnosis: spondylolisthesis Patient Data Age: 77 Gender: F Height: 1.63 m Weight: 101 kg Allergies Allergy/AdvReac Type Severity Reaction Status Date / Time Penicillins Allergy Severe Anaphylaxis Verified 09/17/22 09:11 adhesive Allergy Rash, Verified 09/17/22 09:11 REDNESS AT SITE latex Allergy BLISTERS Verified 09/17/22 09:11 IN MOUTH Sulfa (Sulfonamide Allergy BLURRY Verified 09/17/22 09:11 Antibiotics) VISION, FAINT FEELING epinephrine AdvReac HEART Verified 09/17/22 09:11 RACING Home Medications Medication Instructions Recorded Confirmed Type furosemide 20 mg tablet 20 mg PO QAM PRN Edema 12/12/18 09/17/22 History aspirin 81 mg tablet 81 mg PO DAILY 02/22/20 09/17/22 History omeprazole 20 mg capsule,delayed 20 mg PO DAILY 04/05/20 09/17/22 History release albuterol sulfate 90 mcg/actuation 2 puff inhalation Q4H PRN 11/24/20 09/17/22 Rx aerosol inhaler shortness of breath or wheezing #8.5 grams olopatadine 0.6 % nasal spray 2 spray intranasal BID #30.5 grams 09/25/21 09/17/22 Rx colesevelam 625 mg tablet (WelChol) 1,875 mg PO BID #180 tabs 11/17/21 09/17/22 Rx budesonide 160 mcg-glycopyr 9 2 inh inhalation BID #10.7 grams 12/21/21 09/17/22 Rx mcg-formot 4.8 mcg/actuation HFA inhaler (Breztri Aerosphere) gabapentin 300 mg capsule 300 mg PO DAILY PRN Pain 12/28/21 09/17/22 History atorvastatin 10 mg tablet 10 mg PO DAILY #90 tabs 01/31/22 09/17/22 Rx clobetasol 0.05 % scalp solution 1 applic topical DAILY 04/03/22 09/17/22 History pimecrolimus 1 % topical cream 1 applic topical ONCE 04/03/22 09/17/22 History tacrolimus 0.1 % topical ointment 1 applic topical BID 04/03/22 09/17/22 History cyclobenzaprine 10 mg tablet 10 mg PO TID PRN Muscle Spasm 07/31/22 09/17/22 History ezetimibe 10 mg tablet 10 mg PO DAILY #90 tabs 08/06/22 09/17/22 Rx montelukast 10 mg tablet 10 mg PO DAILY #90 tabs 08/21/22 09/17/22 Rx acetaminophen 500 mg capsule 1,000 mg PO Q6H PRN Pain 09/17/22 09/17/22 History cholecalciferol (vitamin D3) 50 50 mcg PO DAILY 09/17/22 09/17/22 History mcg (2,000 unit) tablet duloxetine 60 mg capsule,delayed 60 mg PO QAM 09/17/22 09/17/22 History release linaclotide 145 mcg capsule 145 mcg PO DAILY 09/17/22 09/17/22 History losartan 50 mg-hydrochlorothiazide 1 tablet PO QAM 09/17/22 09/17/22 History 12.5 mg tablet Patient hx anesthesia problems: other (low BP) Family hx anesthesia problems: none Results Review: All pre-operative results and documents have been reviewed as part of the pre-operative evaluation. FORMERLY [facility], [facility] Past Medical History Medical History Allergies Anxiety and depression BMI greater than 40 Cholelithiasis Chronic pain syndrome Conjunctivitis Hemorrhoid Hepatic steatosis Hypertension Lumbar radiculopathy Lumbar spondylosis Mild persistent asthma Mixed hyperlipidemia Mixed restrictive and obstructive lung disease Morbid (severe) obesity due to excess calories Obstructive sleep apnea on CPAP DANIEL (obstructive sleep apnea) Polyuria Postoperative atrial fibrillation Not on long-term anticoagulation. Right bundle branch block Seborrheic dermatitis Spinal stenosis With neurogenic claudication. Urinary urgency Vitamin B12 deficiency Surgical History Surgical History History of appendectomy History of bilateral hip replacements History of bilateral knee replacement History of carpal tunnel surgery History of repair of left rotator cuff (~02/2019) History of tonsillectomy Hx laparoscopic cholecystectomy 04/12/20 Family History Family History (Reviewed 09/20/22 @ 07:13 by
--- NOTE | 2022-09-20 07:39 | PM.IMHP ---
H&P: HPI History of Present Illness Date/Time: 09/20/22 07:39 Chief Complaint: Back and leg pain Narrative: Bethany is a 77-year-old female with back and leg pain related to spondylolisthesis and stenosis L4-5 presents for posterior lumbar interbody fusion. She has not had any significant changes since we last saw her. She does not have bowel or bladder difficulty. She does not have significant muscle weakness or dermatomal numbness. Review of Systems Review of Systems: Patient denies shortness of breath, cough, fever, chills, nausea, vomiting, weight loss, weight gain, chest pain, dysuria. She has back and leg pain as above. Review of systems otherwise negative on 12 systems except as noted elsewhere. [facility] Past Medical History Medical History Allergies Anxiety and depression BMI greater than 40 Cholelithiasis Chronic pain syndrome Conjunctivitis Hemorrhoid Hepatic steatosis Hypertension Lumbar radiculopathy Lumbar spondylosis Mild persistent asthma Mixed hyperlipidemia Mixed restrictive and obstructive lung disease Morbid (severe) obesity due to excess calories Obstructive sleep apnea on CPAP DANIEL (obstructive sleep apnea) Polyuria Postoperative atrial fibrillation Not on long-term anticoagulation. Right bundle branch block Seborrheic dermatitis Spinal stenosis With neurogenic claudication. Urinary urgency Vitamin B12 deficiency Surgical History Surgical History History of appendectomy History of bilateral hip replacements History of bilateral knee replacement History of carpal tunnel surgery History of repair of left rotator cuff (~02/2019) History of tonsillectomy Hx laparoscopic cholecystectomy 04/12/20 Family History Family History Father Heart disease Acute myocardial infarction Diabetes mellitus Mother Cancer Sibling No problems noted. Social History Social History Social History: The patient lives in [place], moved to the area within the last year or so from [place]. Ambulates with a cane. No alcohol or illicit substance abuse. Son Amari Wilson is listed as her emergency contact. She wishes to be a full code. Smoking packs per day: 1 Smoking cigarettes per day: 20.0 Years smoked: 30 Smoking pack-years: 30.00 Smoking status: Former smoker Tobacco type: cigarettes Second hand tobacco smoke exposure: Yes Smoking end date: 08/12/99 Additional smoking assessment comments: STATES 2PK/DAY/30+YRS, QUIT 1998 Alcohol intake: never Substance use: never Substance use type: does not use Lack of Transportation: No Lack of Food: Sometimes True Current Housing: I Have Housing Concerned About Future Housing: Decline to Answer Difficulty Paying Gas/Electric Bills: Decline to Answer Difficulty Paying for Meds: Decline to Answer Currently Unemployed: Decline to Answer Education: Trade/Vocational Certificate Difficulty w/ Childcare or Family Care: No Living arrangements: with family Additional living arrangements comments: , SON AND FAMILY Occupation/Education: retired Additional occupation/education comments: legal officer Gender identity (if verbalized by the patient): Female Sexual Orientation (if Verbalized by the Patient): Straight or Heterosexual Spiritual care concerns: No Meds Home Medications and Allergies Home Medications Medication Instructions Recorded Confirmed Type furosemide 20 mg tablet 20 mg PO QAM PRN Edema 12/12/18 09/17/22 History aspirin 81 mg tablet 81 mg PO DAILY 02/22/20 09/17/22 History omeprazole 20 mg capsule,delayed 20 mg PO DAILY 04/05/20 09/17/22 History release albuterol sulfate 90 mcg/actuation 2 puff inhalation Q4H PRN
--- NOTE | 2022-09-20 07:42 | WPDHPUPDATE1 ---
History and Physical Update Update Date/Time: 09/20/22 07:42 History and Physical has been reviewed, including an updated exam of the patient. There are NO changes in the patient's condition. Risks, benefits, and alternatives have been discussed and questions answered. Patient agrees to proceed with procedure.
[2022-09-20] MEDS: ceFAZolin 2 GM/D5W 50 ML 2 GM/50 ML BAG IVPB (08:22)
[2022-09-20] MEDS: LIDO 1%/EPINEPHRINE 1:100,000 50 ML VIAL INFILTRATE (09:14)
--- NOTE | 2022-09-20 10:50 | W.PM.PROC2 ---
Procedure Note - Detailed Date of Procedure 09/20/22 Pre-op Diagnosis spondylolisthesis Post-op Diagnosis Same Procedure Performed L4-5 laminectomy and bilateral facetectomy, L4-5 complete diskectomy and interbody arthrodesis utilizing titanium interbody devices and local autograft, L4-5 pedicle screw instrumentation Surgeon Ever Rodriguez MD Timekeeping Supervisor Shant Anesthesia General Description of Procedure Patient was brought to the operating room in the supine position, was sedated, intubated and placed under general anesthesia in routine fashion. She was then turned into the prone position on a Johan frame. The of operation her back was examined, marked for incision, prepped and draped in routine sterile fashion. Incision was marked over the L4-L5 spinous processes in the midline. This area was injected with 0.5% lidocaine with [id number] epinephrine. Intravenous antibiotics given prior to incision. Incision was made with a 10 blade scalpel down to the lumbodorsal fascia. Subperiosteal dissection of the muscle soft tissue away from spinous process and lamina at L4-5 was performed with a subperiosteal elevator and Bovie cautery. A verifying x-rays obtained to verify the level of operation. The L4 spinous process was removed with a Wilfrido rongeur. Kerrison punches, curved curette and a Leksell rongeur were used to remove the lamina in the midline to the soft contents of the canal were encountered. Midas-Bob drill was used to resect the pars bilaterally at L4. The inferior articular process and facet of L4 then be removed bilaterally. These most spinous process were stripped free of soft tissue and morselized for later use as interbody autograft. The Kerrison punches and curved curettes were used to define a plane with the dura and removed bone and ligament flush with the pedicle and widely decompressing the exiting nerve roots bilaterally. With the thecal sac retracted and protected the disc space was entered bilaterally using an 11 blade scalpel. Scrapers a very sizes, curettes of various configurations, pituitary rongeur and a rasp were used to remove as much cartilaginous endplate and disc material as possible down to bleeding cortical flat surfaces on the opposing bones. The disc spaces and sized and 9 mm interbody devices were chosen and filled with local autograft bone. The disc space was likewise filled with local autograft bone medially and anteriorly. The interbody devices were then placed with 2-3 mm countersink within the disc space bilaterally. Pedicle screw instrumentation was performed at L4-L5 by observing and palpating the pedicle awl hole was made and superior to the process above the pedicle using a Midas Bob drill with an a.m. 8 bit. The pedicle was then cannulated with a pedicle probe, checked for continuity ball probe, tapped with a 5.5 mm tap and a 6.5 x 50 mm screw was placed in each pedicle on each side. Rods were placed in the screw heads on either side and secured in position using the caps that purpose. These were then definitively tightened with a torque and anti torque device. A verifying x-rays obtained to verify good position of the instrumentation which was confirmed. The wound was then copiously irrigated with bacitracin irrigation all bleeding stopped with bipolar Bovie cautery and Gelfoam thrombin powder. The wound was then closed in layered fashion with 2-0 Vicryl interrupted sutures in the lumbodorsal fascia and Juliana's layer. 3-0 Vicryl buried interrupted sutures were placed in the dermis and skin was closed with a running 4-0 Monocryl subcuticular stitch and dressed with Dermabond. A medium Hemovac drain had been left in the subfascial position very Dr. The inferior and right of the incision before closure. Patient was allowed to wake up in the operating room and was taken to the recovery room in stable condition. There were no immediate complications of this operation. All counts reported correct
[2022-09-20] MEDS: fentaNYL CITRATE INJ (*CRX) 100 MCG/2 ML VIAL 25 MCG IV PUSH ×8 (11:36→12:25)
--- NOTE | 2022-09-20 13:03 | PC.NURSE ---
This patient, Bethany Wilson, was received from [surgery ] on 09/20/22 at 1300. Patient/family oriented to unit policies and routines
--- NOTE | 2022-09-20 13:26 | ADMGEN ---
This patient, Bethany Wilson, was admitted to Medical Room 349-01 at 1300. Patient/family oriented to hospital policies and general routines including ID bracelet, bed and alarms, visiting hours, pain management, procedures, bathroom and other care routines, personal items, smoking policy, room service/diet, and visiting hours. Information on how to activate the Rapid Response Team has been discussed. Patient/Family are encouraged to report perceived risks to care and to ask questions if they do not understand what they are told or what they should do.
[2022-09-20] MEDS: HYDROcodone/acetaminophen (*CRX) 10-325 MG TABLET 1 TAB PO ×2 (16:52→21:13)
[2022-09-20] MEDS: TACROLIMUS 0.1% 30 GM OINTMENT 1 APPLIC TOPICAL (17:46)
[2022-09-20] MEDS: PIMECROLIMUS 1% 30 GM CREAM 1 APPLIC TOPICAL (17:47)
[2022-09-20] MEDS: COLESEVELAM 625 MG TABLET 1875 MG PO (17:54)
--- NOTE | ~2022-09-21 | XR_ITS ---
EXAMINATION: XR fluoroscopy no charge DATE: 09/20/2022 10:31 INDICATION: L4-L5 spinal fusion. TECHNIQUE: Single lateral fluoroscopic image of the lower lumbar spine was obtained during procedure performed by Dr Gricelda Rodriguez. Radiologist was not present for the imaging or procedure. The amount of f luoroscopy time used during this procedure was 0.1 minutes. COMPARISON: CT dated 05/23/2022 FINDINGS: Combined instrumented anterior and posterior spinal fusion at L4-L5 with interbody bone graft cage an d bilateral pedicle screws at both levels. There appears to be some residual grade 1 anterolisthesis of L4 on L5. Severe disc height loss at L5-S1 and moderate disc height loss at L2-L3 and L3-L4. Soft tissue retractors and increased lucency consistent with gas at the operative bed projecting over the region of the posterior elements of L4 and L5. IMPRESSION: 1. Fluoroscopy utilized during combined instrumented L4-L5 anterior and posterior spinal fusion. See procedure note for further detail. Reviewed, dictated and finalized at location L. IMPRESSION: 1. Fluoroscopy utilized during combined instrumented L4-L5 anterior and posteri or spinal fusion. See procedure note for further detail.
[2022-09-21 00:10] VITALS: BP 128/60; PULSE 61; RESP 20; TEMP 36.2; O2SAT 94
[2022-09-21] MEDS: HYDROcodone/acetaminophen (*CRX) 10-325 MG TABLET 1 TAB PO ×3 (03:55→21:37)
[2022-09-21 04:26] VITALS: BP 123/53; PULSE 61; RESP 20; TEMP 36.1; O2SAT 95
[2022-09-21 07:53] VITALS: BP 113/52; PULSE 82; RESP 18; TEMP 36.3; O2SAT 91
--- NOTE | 2022-09-21 09:23 | PCRCNOTE ---
pt refusing her Juan Kumar, has her Thomi here from home.
[2022-09-21] MEDS: ATORVASTATIN 10 MG TABLET PO (09:30)
[2022-09-21] MEDS: COLESEVELAM 625 MG TABLET 1875 MG PO ×2 (09:32→17:09)
[2022-09-21] MEDS: PANTOPRAZOLE 40 MG TABLET PO (09:33)
[2022-09-21] MEDS: DULoxetine HCL 60 MG CAPSULE.DR PO (09:33)
[2022-09-21] MEDS: LOSARTAN POTASSIUM 50 MG TABLET PO (09:33)
[2022-09-21] MEDS: LINACLOTIDE 145 MCG CAPSULE PO (09:33)
[2022-09-21] MEDS: MONTELUKAST SODIUM 10 MG TABLET PO (09:33)
[2022-09-21] MEDS: hydroCHLOROthiazide 12.5 MG CAPSULE PO (09:33)
[2022-09-21] MEDS: EZETIMIBE 10 MG TABLET PO (09:33)
[2022-09-21] MEDS: CHOLECALCIFEROL 1,000 UNITS TABLET 2000 UNITS PO (09:37)
[2022-09-21] MEDS: TACROLIMUS 0.1% 30 GM OINTMENT 1 APPLIC TOPICAL ×2 (09:43→17:10)
--- NOTE | 2022-09-21 10:22 | WPDANESPN ---
Anes - Prog Note Post-Op Date/Time: 09/21/22 10:22 Cardiovascular status: normal Respiratory status: normal Airway patency: baseline Mental status: baseline Post-Op hydration status: normal Vital Signs: Last Vital Signs Temp 36.3 C L 09/21/22 07:53 Pulse 82 09/21/22 07:53 Resp 18 09/21/22 07:53 BP 113/52 L 09/21/22 07:53 Pulse Ox 91 09/21/22 07:53 O2 Del Method Autopap 09/20/22 22:03 O2 Flow Rate 8 09/20/22 11:15 Pain Score (VAS): 04/20 I/O: Intake & Output 09/20/22 09/21/22 09/21/22 23:59 07:59 15:59 Intake Total 1240 250 240 Output Total 650 1650 150 Balance 590 -1400 90 Post-procedural complaints: none Patient Feedback: Patient satisfied with anesthetic care.
[2022-09-21 16:00] VITALS: BP 136/52; PULSE 60; RESP 18; TEMP 36.3; O2SAT 93
[2022-09-21] MEDS: DOCUSATE SODIUM 100 MG CAPSULE PO (21:32)
[2022-09-21 21:35] VITALS: BP 130/55; PULSE 71; RESP 16; TEMP 36.1; O2SAT 95
[2022-09-21 22:25] VITALS: PULSE 66; RESP 19; O2SAT 97
[2022-09-22 03:36] VITALS: PULSE 63; RESP 18; O2SAT 97
[2022-09-22 03:56] VITALS: BP 111/51; PULSE 69; RESP 18; TEMP 36.6; O2SAT 94
[2022-09-22] MEDS: HYDROcodone/acetaminophen (*CRX) 10-325 MG TABLET 1 TAB PO (05:18)
[2022-09-22 08:00] VITALS: O2SAT 94
--- NOTE | 2022-09-22 08:33 | WPDNEUROSGPN ---
Progress Note: A&P Assessment and Plan (1) Spondylolisthesis at L4-L5 level: Code(s): M43.16 - Spondylolisthesis, lumbar region Status: Acute Assessment and Plan: Bethany is doing well status post L4-5 posterior lumbar interbody fusion. I will give her steroid today to help with the inflammation may be causing discomfort over towards the right. She should continue to work with physical and occupational therapy towards eventual disposition. Subjective Date/time seen: 09/22/22 08:33 Interval history: Bethany is postop day 2 status post L4-5 posterior lumbar interbody fusion. She is ambulating with the help of physical therapy. Her greatest complaint is pain paraspinally towards the right near the sacrum and hip area. Her postoperative pain has improved and is responding to medication. She is not having any new bowel or bladder other constitutional problems. Exam Narrative: Strength is 5/5 in all muscle groups of the bilateral lower extremities. Sensation is intact to light touch throughout the lower extremities. Her dressing is clean, dry and intact. Objective Data Vital Signs Vital Signs: Vital Signs - 24 hr 09/21/22 09:32 09/21/22 16:00 09/21/22 21:35 Temperature 97.4 F L 97 F L Pulse Rate 60 71 Respiratory Rate 18 16 Blood Pressure 136/52 L 130/55 L Pulse Oximetry 93 95 Oxygen Delivery Room Air 09/21/22 22:25 09/21/22 20:00 09/22/22 03:36 Temperature Pulse Rate 66 63 Respiratory Rate 19 18 Blood Pressure Pulse Oximetry 97 97 Oxygen Delivery Autopap Room Air Autopap 09/22/22 03:56 Temperature 97.8 F Pulse Rate 69 Respiratory Rate 18 Blood Pressure 111/51 L Pulse Oximetry 94 Oxygen Delivery Intake/Output Intake/Output: Intake & Output 09/19/22 09/20/22 09/21/22 09/22/22 23:59 23:59 23:59 23:59 Intake Total 1840 970 550 Output Total 770 1870 25 Balance 1070 -900 525 Meds/Results Medications: Active Medications Generic Name Dose Route Start Last Admin Trade Name Freq PRN Reason Stop Dose Admin Hydrocodone Bitart/Acetaminophen 1 tab 09/20/22 12:53 Hydrocodone/Acetaminophen (*Crx) 5-325 Mg Tablet PO Q4H PRN Mild Pain (1-3) Hydrocodone Bitart/Acetaminophen 1 tab 09/20/22 12:53 09/22/22 05:18 Hydrocodone/Acetaminophen (*Crx) 10-325 Mg Tablet PO 1 tab Q4H PRN Administration Moderate Pain (4-6) Al Hydrox/Mg Hydrox/Simethicone 20 ml 09/20/22 12:53 Mag Hydrox/Al Hydrox/Simeth 30 Ml Udc PO Q4H PRN Indigestion/Heartburn Albuterol 2 puff 09/20/22 12:53 Albuterol Sulfate (*Sp) Aerosol 1 Puff INHALATION Q4H PRN shortness of breath or wheezing Atorvastatin Calcium 10 mg 09/21/22 09:00 09/21/22 09:30 Atorvastatin 10 Mg Tablet PO 10 mg DAILY KAYLIN Administration Bisacodyl 10 mg 09/20/22 12:53 Bisacodyl 10 Mg Suppository RECTAL DAILY PRN Constipation Colesevelam HCl 1,875 mg 09/20/22 17:00 09/21/22 17:09 Colesevelam 625 Mg Tablet PO 1,875 mg BID KAYLIN Administration Cyclobenzaprine HCl 10 mg 09/20/22 12:53 Cyclobenzaprine Hcl 10 Mg Tablet PO TID PRN Muscle Spasms Docusate Sodium 100 mg 09/20/22 21:00 09/21/22 21:32 Docusate Sodium 100 Mg Capsule PO 100 mg Q12HR KAYLIN Administration Duloxetine HCl 60 mg 09/21/22 09:00 09/21/22 09:33 Duloxetine Hcl 60 Mg Capsule.Dr PO 60 mg QAM KAYLIN Administration Ezetimibe 10 mg 09/21/22 09:00 09/21/22 09:33 Ezetimibe 10 Mg Tablet PO 10 mg DAILY KAYLIN Administration Fluticasone/Umeclidinium/Vilanterol 1 puff 09/21/22 08:00 09/21/22 09:22 Fluticasone/Umeclidin/Vilanter 100-62.5-25 Mcg Ellipta INHALATION Not Given DAILYRT KAYLIN Furosemide 20 mg 09/20/22 12:53 Furosemide 20 Mg Tablet PO QAM PRN Edema Hydrochlorothiazide 12.5 mg 09/21/22 09:00 09/21/22 09:33 Hydrochlorothiazide 12.5 Mg Capsule PO 12.5 mg QAM KAYLIN Administra
[2022-09-22] MEDS: LINACLOTIDE 145 MCG CAPSULE PO (09:16)
[2022-09-22] MEDS: COLESEVELAM 625 MG TABLET 1875 MG PO ×2 (09:16→18:01)
[2022-09-22] MEDS: ATORVASTATIN 10 MG TABLET PO (09:16)
[2022-09-22] MEDS: LOSARTAN POTASSIUM 50 MG TABLET PO (09:16)
[2022-09-22] MEDS: hydroCHLOROthiazide 12.5 MG CAPSULE PO (09:17)
[2022-09-22] MEDS: PANTOPRAZOLE 40 MG TABLET PO (09:17)
[2022-09-22] MEDS: DULoxetine HCL 60 MG CAPSULE.DR PO (09:17)
[2022-09-22] MEDS: MONTELUKAST SODIUM 10 MG TABLET PO (09:17)
[2022-09-22] MEDS: EZETIMIBE 10 MG TABLET PO (09:17)
[2022-09-22] MEDS: DOCUSATE SODIUM 100 MG CAPSULE PO ×2 (09:17→22:12)
[2022-09-22] MEDS: CHOLECALCIFEROL 1,000 UNITS TABLET 2000 UNITS PO (09:19)
[2022-09-22] MEDS: TACROLIMUS 0.1% 30 GM OINTMENT 1 APPLIC TOPICAL ×2 (09:27→18:02)
[2022-09-22] MEDS: PIMECROLIMUS 1% 30 GM CREAM 1 APPLIC TOPICAL (09:28)
[2022-09-22 16:00] VITALS: BP 141/61; PULSE 85; RESP 16; TEMP 36; O2SAT 96
[2022-09-22 20:00] VITALS: BP 121/59; PULSE 58; RESP 20; TEMP 36.7; O2SAT 95
[2022-09-22 21:15] VITALS: PULSE 65; RESP 16; O2SAT 96
[2022-09-22] MEDS: HYDROcodone/acetaminophen (*CRX) 5-325 MG TABLET 1 TAB PO (22:11)
[2022-09-23] VITALS (7 sets, daily range): BP systolic 97–128; BP diastolic 49–84; PULSE 47–71; RESP 15–20; TEMP 36.2–36.6; O2SAT 95–100
[2022-09-23] MEDS: HYDROcodone/acetaminophen (*CRX) 5-325 MG TABLET 1 TAB PO ×3 (04:01→23:41)
[2022-09-23] MEDS: COLESEVELAM 625 MG TABLET 1875 MG PO ×2 (09:30→17:07)
[2022-09-23] MEDS: PANTOPRAZOLE 40 MG TABLET PO (09:30)
[2022-09-23] MEDS: DOCUSATE SODIUM 100 MG CAPSULE PO ×2 (09:30→21:39)
[2022-09-23] MEDS: LINACLOTIDE 145 MCG CAPSULE PO (09:30)
[2022-09-23] MEDS: MONTELUKAST SODIUM 10 MG TABLET PO (09:31)
[2022-09-23] MEDS: ATORVASTATIN 10 MG TABLET PO (09:31)
[2022-09-23] MEDS: CHOLECALCIFEROL 1,000 UNITS TABLET 2000 UNITS PO (09:31)
[2022-09-23] MEDS: LOSARTAN POTASSIUM 50 MG TABLET PO (09:31)
[2022-09-23] MEDS: DULoxetine HCL 60 MG CAPSULE.DR PO (09:31)
[2022-09-23] MEDS: hydroCHLOROthiazide 12.5 MG CAPSULE PO (09:31)
[2022-09-23] MEDS: EZETIMIBE 10 MG TABLET PO (09:31)
[2022-09-23] MEDS: TACROLIMUS 0.1% 30 GM OINTMENT 1 APPLIC TOPICAL ×2 (09:33→17:09)
[2022-09-23] MEDS: DEXAMETHASONE SOD PHOS INJ 4 MG/ML VIAL IV PUSH ×3 (12:51→23:40)
[2022-09-24] VITALS (7 sets, daily range): BP systolic 128–142; BP diastolic 52–64; PULSE 41–68; RESP 17–23; TEMP 36.2–36.6; O2SAT 95–97
[2022-09-24] MEDS: DEXAMETHASONE SOD PHOS INJ 4 MG/ML VIAL IV PUSH ×2 (06:30→12:24)
--- NOTE | 2022-09-24 08:35 | PCRCNOTE ---
Pt refusing hospital sub for home inhaler, pt brought own home inhaler to take.
[2022-09-24] MEDS: PANTOPRAZOLE 40 MG TABLET PO (09:11)
[2022-09-24] MEDS: DULoxetine HCL 60 MG CAPSULE.DR PO (09:11)
[2022-09-24] MEDS: COLESEVELAM 625 MG TABLET 1875 MG PO ×2 (09:11→17:47)
[2022-09-24] MEDS: LINACLOTIDE 145 MCG CAPSULE PO (09:11)
[2022-09-24] MEDS: DOCUSATE SODIUM 100 MG CAPSULE PO ×2 (09:11→20:25)
[2022-09-24] MEDS: EZETIMIBE 10 MG TABLET PO (09:11)
[2022-09-24] MEDS: hydroCHLOROthiazide 12.5 MG CAPSULE PO (09:11)
[2022-09-24] MEDS: ATORVASTATIN 10 MG TABLET PO (09:12)
[2022-09-24] MEDS: MONTELUKAST SODIUM 10 MG TABLET PO (09:12)
[2022-09-24] MEDS: LOSARTAN POTASSIUM 50 MG TABLET PO (09:12)
[2022-09-24] MEDS: PIMECROLIMUS 1% 30 GM CREAM 1 APPLIC TOPICAL (09:13)
[2022-09-24] MEDS: CHOLECALCIFEROL 1,000 UNITS TABLET 2000 UNITS PO (09:13)
[2022-09-24] MEDS: TACROLIMUS 0.1% 30 GM OINTMENT 1 APPLIC TOPICAL ×2 (09:13→17:48)
[2022-09-24] MEDS: HYDROcodone/acetaminophen (*CRX) 5-325 MG TABLET 1 TAB PO ×2 (09:36→20:28)
--- NOTE | 2022-09-24 17:53 | WPDNEUROSGPN ---
Progress Note: A&P Assessment and Plan (1) Foraminal stenosis of lumbar region: Code(s): M48.061 - Spinal stenosis, lumbar region without neurogenic claudication Status: Acute (2) Spondylolisthesis at L4-L5 level: Code(s): M43.16 - Spondylolisthesis, lumbar region Status: Acute Plan Bethany is doing well and we will allow her to be discharged tomorrow morning. Follow-up in 6 weeks will be arranged. Subjective Date/time seen: 09/24/22 17:53 Interval history: Bethany is doing well today. Steroid seemed to have helped her. She has some discomfort still on the right in the sacral area. She is not having any new issues or bowel or bladder problems. Exam Narrative: Strength is 5/5 in all muscle groups of the bilateral lower extremities. Sensation is intact to light touch throughout the lower extremities. Objective Data Vital Signs Vital Signs: Vital Signs - 24 hr 09/23/22 21:10 09/23/22 20:00 09/23/22 23:35 Temperature 97.9 F Pulse Rate 47 L 71 Respiratory Rate 20 18 Blood Pressure 128/49 L Pulse Oximetry 95 96 Oxygen Delivery Room Air Autopap 09/24/22 03:14 09/24/22 04:40 09/24/22 14:00 Temperature 97.9 F 97.1 F L Pulse Rate 67 53 L 55 L Respiratory Rate 17 20 18 Blood Pressure 142/52 H 129/64 Pulse Oximetry 97 95 97 Oxygen Delivery Autopap 09/24/22 09:10 Temperature Pulse Rate Respiratory Rate Blood Pressure Pulse Oximetry 97 Oxygen Delivery Room Air Intake/Output Intake/Output: Intake & Output 09/21/22 09/22/22 09/23/22 09/24/22 23:59 23:59 23:59 23:59 Intake Total 970 1030 720 480 Output Total 1870 25 Balance -900 1005 720 480 Meds/Results Medications: Active Medications Generic Name Dose Route Start Last Admin Trade Name Freq PRN Reason Stop Dose Admin Hydrocodone Bitart/Acetaminophen 1 tab 09/20/22 12:53 09/24/22 09:36 Hydrocodone/Acetaminophen (*Crx) 5-325 Mg Tablet PO 1 tab Q4H PRN Administration Mild Pain (1-3) Hydrocodone Bitart/Acetaminophen 1 tab 09/20/22 12:53 09/22/22 05:18 Hydrocodone/Acetaminophen (*Crx) 10-325 Mg Tablet PO 1 tab Q4H PRN Administration Moderate Pain (4-6) Al Hydrox/Mg Hydrox/Simethicone 20 ml 09/20/22 12:53 Mag Hydrox/Al Hydrox/Simeth 30 Ml Udc PO Q4H PRN Indigestion/Heartburn Albuterol 2 puff 09/20/22 12:53 Albuterol Sulfate (*Sp) Aerosol 1 Puff INHALATION Q4H PRN shortness of breath or wheezing Atorvastatin Calcium 10 mg 09/21/22 09:00 09/24/22 09:12 Atorvastatin 10 Mg Tablet PO 10 mg DAILY KAYLIN Administration Bisacodyl 10 mg 09/20/22 12:53 Bisacodyl 10 Mg Suppository RECTAL DAILY PRN Constipation Colesevelam HCl 1,875 mg 09/20/22 17:00 09/24/22 17:47 Colesevelam 625 Mg Tablet PO 1,875 mg BID KAYLIN Administration Cyclobenzaprine HCl 10 mg 09/20/22 12:53 Cyclobenzaprine Hcl 10 Mg Tablet PO TID PRN Muscle Spasms Docusate Sodium 100 mg 09/20/22 21:00 09/24/22 09:11 Docusate Sodium 100 Mg Capsule PO 100 mg Q12HR KAYLIN Administration Duloxetine HCl 60 mg 09/21/22 09:00 09/24/22 09:11 Duloxetine Hcl 60 Mg Capsule.Dr PO 60 mg QAM KAYLIN Administration Ezetimibe 10 mg 09/21/22 09:00 09/24/22 09:11 Ezetimibe 10 Mg Tablet PO 10 mg DAILY KAYLIN Administration Fluticasone/Umeclidinium/Vilanterol 1 puff 09/21/22 08:00 09/24/22 08:34 Fluticasone/Umeclidin/Vilanter 100-62.5-25 Mcg Ellipta INHALATION Not Given DAILYRT KAYLIN Furosemide 20 mg 09/20/22 12:53 Furosemide 20 Mg Tablet PO QAM PRN Edema Hydrochlorothiazide 12.5 mg 09/21/22 09:00 09/24/22 09:11 Hydrochlorothiazide 12.5 Mg Capsule PO 12.5 mg QAM KAYLIN Administration Hydromorphone HCl 0.5 mg 09/20/22 12:53 Hydromorphone Hcl Inj (*Crx) 1 Mg/Ml Syr IV PUSH Q2H PRN Pain Rated 7-10 Linaclotide 145 mcg 09/21/22 09:00 09/24/22 09:11 Linaclotide 14
[2022-09-25 01:08] VITALS: PULSE 67; RESP 16; O2SAT 96
[2022-09-25 04:37] VITALS: RESP 14
[2022-09-25] MEDS: HYDROcodone/acetaminophen (*CRX) 5-325 MG TABLET 1 TAB PO (05:44)
[2022-09-25 06:00] VITALS: BP 134/62; PULSE 44; RESP 20; TEMP 36.6; O2SAT 97
[2022-09-25] MEDS: DOCUSATE SODIUM 100 MG CAPSULE PO (09:32)
[2022-09-25] MEDS: MONTELUKAST SODIUM 10 MG TABLET PO (09:32)
[2022-09-25] MEDS: DULoxetine HCL 60 MG CAPSULE.DR PO (09:32)
[2022-09-25] MEDS: LINACLOTIDE 145 MCG CAPSULE PO (09:32)
[2022-09-25] MEDS: PANTOPRAZOLE 40 MG TABLET PO (09:32)
[2022-09-25] MEDS: LOSARTAN POTASSIUM 50 MG TABLET PO (09:32)
[2022-09-25] MEDS: ATORVASTATIN 10 MG TABLET PO (09:32)
[2022-09-25] MEDS: hydroCHLOROthiazide 12.5 MG CAPSULE PO (09:32)
[2022-09-25] MEDS: EZETIMIBE 10 MG TABLET PO (09:32)
[2022-09-25] MEDS: COLESEVELAM 625 MG TABLET 1875 MG PO (09:32)
[2022-09-25] MEDS: TACROLIMUS 0.1% 30 GM OINTMENT 1 APPLIC TOPICAL (09:38)
[2022-09-25 10:00] VITALS: PULSE 60; RESP 16; O2SAT 97
[2022-09-25] MEDS: CHOLECALCIFEROL 1,000 UNITS TABLET 2000 UNITS PO (10:02)
--- NOTE | 2022-10-29 16:18 | PM.DS ---
DS: Admitting Diagnosis Discharge Date 09/25/22 Admitting Diagnosis L4-5 spondylolisthesis DS: Discharge Diagnosis Discharge Diagnosis (1) Spondylolisthesis at L4-L5 level: Code(s): M43.16 - Spondylolisthesis, lumbar region Status: Acute DS: Summary Hospital Course Hospital Course: patient was brought to the operating room on 09/20/2022 with the aforementioned operation, that is, an L4-5 posterior lumbar interbody fusion, was performed without complication. The patient went to the floor postoperatively. Physical and occupational therapy were involved in her care. Her drain and Blackman catheter removed by postoperative day 2. She complained of some pain near the right sacroiliac area. she was given steroids which seemed to reduce this discomfort significantly. By postoperative day 4 she was eating, ambulating, emptying her bladder and her pain was under control with by mouth pain medicine. Her wound remained clean, dry and intact. She was afebrile with stable vital signs. She was therefore allowed to be discharged home. Status at Discharge Functional status at discharge: independent ambulation Time Spent with Patient Time attestation: Total time spent providing and/or coordinating discharge services: Discharge Plan Discharge Attending physician on discharge: Ever Rodriguez Consulting providers: Crescencio Bashir Discharging Clinician: Ever Rodriguez Anticipated Discharge Date/Time: 09/24/22 16:21 Patient Disposition: Home Health Service Activity: as tolerated Diet: as tolerated Discharge Instructions: Per Care Coordination Patient has been accepted to have [facility] for RN, PT, [phone] Patient Instructions: Antibiotic Form Stand Alone Forms: General Discharge Information Follow-up/Referrals: Ever Rodriguez MD [Physician] - Discharge Medications: New hydrocodone-acetaminophen 10-325 mg tablet 1 tablet PO Q4-6H PRN (Reason: pain) Qty: 30 0RF Continued omeprazole 20 mg capsule,delayed release(DR/EC) 20 mg PO DAILY pimecrolimus 1 % cream 1 applic topical ONCE Rx Instructions: SKIN FOLDS clobetasol 0.05 % solution 1 applic topical DAILY tacrolimus 0.1 % ointment 1 applic topical BID Rx Instructions: FACE furosemide 20 mg tablet 20 mg PO QAM PRN (Reason: Edema) gabapentin 300 mg capsule 300 mg PO DAILY PRN (Reason: Pain) albuterol sulfate 90 mcg/actuation HFA aerosol inhaler 2 puff INHALATION Q4H PRN (Reason: shortness of breath or wheezing) Qty: 8.5 3RF olopatadine 0.6 % spray,non-aerosol 2 spray intranasal BID Qty: 30.5 5RF Rx Instructions: administer into each nostril cyclobenzaprine 10 mg tablet 10 mg PO TID PRN (Reason: Muscle Spasm) linaclotide 145 mcg Capsule 145 mcg PO DAILY duloxetine 60 mg capsule,delayed release(DR/EC) 60 mg PO QAM losartan-hydrochlorothiazide 50-12.5 mg tablet 1 tablet PO QAM cholecalciferol (vitamin D3) 50 mcg (2,000 unit) Tablet 50 mcg PO DAILY acetaminophen 500 mg Capsule 1,000 mg PO Q6H PRN (Reason: Pain) colesevelam [WelChol] 625 mg tablet 1,875 mg PO BID Qty: 180 5RF Breztri Aerosphere 160-9-4.8 mcg/actuation HFA aerosol inhaler 2 inh inhalation BID Qty: 10.7 5RF Rx Instructions: rinse and spit atorvastatin 10 mg tablet 10 mg PO DAILY Qty: 90 1RF montelukast 10 mg tablet 10 mg PO DAILY Qty: 90 1RF Held aspirin 81 mg Tablet 81 mg PO DAILY Hold Instructions: Resume on 10/01/22. No Action ezetimibe 10 mg tablet 10 mg PO DAILY Qty: 90 0RF methylprednisolone [Medrol (Jeb)] 4 mg tablets,dose pack See Rx Instructions PO PER PKG DIR Qty: 21 0RF Rx Instructions: PO PER PKG DIR cyclobenzaprine 10 mg tablet 10 mg PO TID PRN (Reason: muscle spasm) Qty: 14 0RF Date of admission: 09/23/22 18:35 Primary Care Provider: Denys Lundy
== END 2022-09-25 13:00 | disposition home health service (06) | DRG 460 ==
LOC: ANHSURGERY 19:35 → ANH3MED 19:35
PROVIDERS: Admitting Provider Neurological Surgery; PCP Family Medicine; Visit Provider Neurological Surgery
PROC: 0SG00AJ Fusion of Lumbar Vertebral Joint with Interbody Fusion Device, Posterior Approach, Anterior Column, Open Approach (ICD-10-PCS; CPT 22612; principal; 2022-09-20 08:00)
DX: M48.062 Spinal stenosis, lumbar region with neurogenic claudication (principal); M43.16 Spondylolisthesis, lumbar region; F41.8 Other specified anxiety disorders; G89.4 Chronic pain syndrome; E78.2 Mixed hyperlipidemia; G47.33 Obstructive sleep apnea (adult) (pediatric); I45.10 Unspecified right bundle-branch block; Z96.643 Presence of artificial hip joint, bilateral; Z96.653 Presence of artificial knee joint, bilateral; E66.01 Morbid (severe) obesity due to excess calories; Z68.39 Body mass index [BMI] 39.0-39.9, adult; Z90.49 Acquired absence of other specified parts of digestive tract; Z87.891 Personal history of nicotine dependence
CPT/HCPCS: 94640; 97110; 97116; 97161; 97165; 97530; 97535; 99199; A9270; C1713; G0378; J0690; J1100; J1170; J2371; J2405; J2704; J3010; J7120

== ENCOUNTER 2022-10-22 10:02 | Outpatient (CLI) | payer MEDICARE, SELFPAY ==
--- NOTE | ~2022-10-22 | XR_ITS ---
EXAM: XR lumbar spine 2-3V DATE: 10/22/2022 10:35 HISTORY: Z98.1 - Arthrodesis status . COMPARISON: 1623. FINDINGS: Mild scoliosis. Uncomplicated appearing posterior fusion hardware at L4-5 with interbody de vices. Partially visualized bilateral hip arthroplasties. Right upper quadrant clips. Apical scleroti c aortic calcifications without evident aneurysm. 5 nonrib-bearing lumbar-type vertebral bodies. Pedi cles intact. 9 mm anterolisthesis at L4-5. Vertebral body heights preserved. Multilevel severe disc s pace narrowing. Vacuum phenomenon at L3-4. Mild facet sclerosis and hypertrophy. No fracture or dislo cation. IMPRESSION: Posterior L4-5 fusion with interbody device. No radiographic evidence of hardware-related complicatio n. Grade 1 anterolisthesis at L4-5. Multilevel severe degenerative disc disease. Reviewed, dictated and finalized at location K. IMPRESSION: Posterior L4-5 fusion with interbody device. No radiographic evidence of hardwa re-related complication. Grade 1 anterolisthesis at L4-5. Multilevel severe degenerative disc disease.
== END 2022-10-22 10:03 | disposition home or self-care (01) ==
PROVIDERS: PCP Family Medicine; Visit Provider Neurological Surgery
DX: Z98.1 Arthrodesis status (principal); M51.36 Other intervertebral disc degeneration, lumbar region
CPT/HCPCS: 72100

== ENCOUNTER 2022-12-17 10:55 | Emergency (ER) | payer MEDICARE, BC, SELFPAY ==
--- NOTE | ~2022-12-17 | CT_ITS ---
EXAMINATION: CT pelvis wo con, CT lumbar spine wo con DATE: 12/17/2022 13:09 INDICATION: Lower left back pain radiating to the left buttock post fall. Post fall TECHNIQUE: 1. Computed tomography (CT) of the lumbar spine was performed without intravenous contrast. Automated exposure control and iterative reconstruction technique were employed. The dose-length product was 1 421.65 mGy-cm. 2. CT of the pelvis was performed without intravenous contrast. Automated exposure control and iterat kamlesh reconstruction technique were employed. The dose-length product was 1421.65 mGy-cm. COMPARISON: CT dated 05/23/2022 FINDINGS: Lumbar spine: 18 degrees lumbar dextroscoliosis. 5 mm anterolisthesis L4 on L5 and 5 mm retrolisthesis L5 on S1. Ch ronic mild left anterior vertebral body height loss at L1. Remaining vertebral body heights are krysten l. Interval L4 laminectomy and combined instrumented L4-L5 anterior and posterior spinal fusion with interbody bone graft cages and bilateral vertical james and pedicle screw fixation. Severe disc height loss with fusion across the right-sided the endplate margin at L5-S1. Severe disc height loss at L1-L 2, moderate to severe left-sided predominant disc height loss at L2-L3, moderate disc height loss at T10-T11 and L3-L4 and mild disc height loss at T9-T10, T11-T12 and T12-L1. No fractures identified. S mall sliding-type hiatal hernia. The following disc levels are specifically discussed: T9-T10: Disc is minimally bulging. There is mild left-sided and moderate right-sided facet osteoarthr itis. There is mild left-sided and moderate right-sided neural foraminal stenosis. There is negligibl e central canal stenosis. T10-T11: Disc is bulging. There is mild to moderate left and moderate right facet osteoarthritis. The re is mild left and mild to moderate right neural foraminal stenosis. There is mild central canal sabine nosis. T11-T12: Disc is bulging. There is mild bilateral facet osteoarthritis. There is no neural foraminal stenosis. There is T12-L1 Disc is bulging. There is mild bilateral facet joint osteoarthritis. There is mild bilateral n eural foraminal stenosis. There is mild central canal stenosis. L1-L2: The disc does not extend beyond the posterior osteophyte arising from the inferior endplate of L1. There is moderate left and mild to moderate right facet joint osteoarthritis. There is mild righ t and moderate left neural foraminal stenosis. There is mild central canal stenosis. L2-L3: Disc is bulging. There is mild to moderate bilateral facet joint osteoarthritis. There is mode rate left and mild right neural foraminal stenosis. There is mild central canal stenosis. L3-L4: Disc is bulging. There is hypertrophy of the ligamentum flavum. There is mild right and modera te left facet joint osteoarthritis. There is moderate bilateral neural foraminal stenosis. There is m oderate central canal stenosis. L4-L5: Metallic streak artifact from the anterior and posterior spinal fusion instrumentation limits assessment of the central canal with no osseous stenosis of the central canal. There is mild right-si ded and no left-sided neural foraminal stenosis. L5-S1: The disc does not extend beyond the more posterior L5 endplate margin where there are small ma rginal osteophytes. There is mild left and moderate right facet joint osteoarthritis with suggestion of developing fusion along the margins of the right facet joint. There is moderate bilateral neural f oraminal stenosis. There is no central canal stenosis. Pelvis: Bilateral noncemented total hip arthroplasties which are in near anatomic alignment. No fracture. The re is some heterotopic ossification bilaterally about the greater trochanters. Visualized caudal tip of the liver, lower poles of the kidneys and the bowels are unremarkable. Age-appropriate uterine atr ophy. Bilateral adnexa are unremarkable. The bladder is obscured by st
[2022-12-17 11:09] VITALS: BP 121/57; PULSE 105; RESP 19; TEMP 36.9; O2SAT 96
--- NOTE | 2022-12-17 12:38 | ED.GENADULT ---
HPI - General Adult General Chief complaint: Back Pain/Injury <Tiffanie Grey June, - Last Filed: 12/17/22 12:46> Stated complaint: back pain <Tiffanie Grey June, - Last Filed: 12/17/22 12:46> Time Seen by Provider: 12/17/22 13:16 <Tiffanie Grey June, - Last Filed: 12/17/22 12:46> History of Present Illness HPI narrative: Bethany Wilson is a 77 y/o female who presents with reports of having a lumbar fusion in September with Dr. Rodriguez. She states that she had a fall on Nov 26 but did not have any pain after that fall. She started to have new worsening pain to her lower spine that moves around her left hip. She followed up with her surgeon for second post op follow up a week ago and was started on a flexeril that doesn't seem to help. She states that she has severe lower lumbar pain radiating around her left hip that has been ongoing for about 1 week. Nothing makes her pain better. No saddle paraesthesia No loss of bowel or bladder <Tiffanie Grey June, - Last Filed: 12/17/22 12:46> Bethany Wilson is a 77 y/o female who presents with reports of having a lumbar fusion September [address] Rodriguez/Beata(?). She states that she had a fall on Nov 26 but did not have any pain after that fall. She started to have new worsening pain to her lower spine that moves around her left hip. She followed up with her surgeon for first appointment 10/22 and second post op follow up a week ago (Sunday 12/10) and was started on a flexeril that doesn't seem to help. She states that she has severe lower lumbar pain radiating around her left hip that has been ongoing for about 1 week. Nothing makes her pain better. No saddle paraesthesia No loss of bowel or bladder. She felt flushed but without fever. She has been nauseated with decreased PO intake; dry heaves Saturday. Ambulates with walker. No history kidney stones. She has [place] 10mg-325 pills which she cuts in half and uses but uses fewer of these now that she has the cyclobenzaprine which she takes 10mg TID since . Her stools have been loose in the setting of taking Linzess. No dysuria. Pain radiated down her left leg once briefly but not since/has not recurred. <Katelyn Bourgeois MD - Last Filed: 12/19/22 02:13> Related Data Home medications: Home Medications Medication Instructions Recorded Confirmed furosemide 20 mg tablet 20 mg PO QAM PRN Edema 12/12/18 09/17/22 aspirin 81 mg tablet 81 mg PO DAILY 02/22/20 09/17/22 omeprazole 20 mg capsule,delayed 20 mg PO DAILY 04/05/20 09/17/22 release gabapentin 300 mg capsule 300 mg PO DAILY PRN Pain 12/28/21 09/17/22 clobetasol 0.05 % scalp solution 1 applic topical DAILY 04/03/22 09/17/22 pimecrolimus 1 % topical cream 1 applic topical ONCE 04/03/22 09/17/22 tacrolimus 0.1 % topical ointment 1 applic topical BID 04/03/22 09/17/22 cyclobenzaprine 10 mg tablet 10 mg PO TID PRN Muscle Spasm 07/31/22 09/17/22 acetaminophen 500 mg capsule 1,000 mg PO Q6H PRN Pain 09/17/22 09/17/22 cholecalciferol (vitamin D3) 50 50 mcg PO DAILY 09/17/22 09/17/22 mcg (2,000 unit) tablet duloxetine 60 mg capsule,delayed 60 mg PO QAM 09/17/22 09/20/22 release linaclotide 145 mcg capsule 145 mcg PO DAILY 09/17/22 09/17/22 losartan 50 mg-hydrochlorothiazide 1 tablet PO QAM 09/17/22 09/17/22 12.5 mg tablet <Tiffanie Sosa, SAUSAGE COOKER - Last Filed: 12/17/22 12:46> Allergies/adverse reactions: Allergies Allergy/AdvReac Type Severity Reaction Status Date / Time Penicillins Allergy Severe Anaphylaxis Verified 12/17/22 16:11 adhesive Allergy Rash, Verified 12/17/22 16:11 REDNESS AT SITE latex Allergy BLISTERS Verified 12/17/22 16:11 IN MOUTH Sulfa (Sulfonamide Allergy BLURRY Verified 12/17/22 16:11 Antibiotics) VISION, FAINT FEELING epinephrine AdvReac HEART Verified 12/17/22 16:11 RACING <Tiffanie Sosa, SAUSAGE COOKER - Last Filed: 12/17/22 12:46> [facility] Past Medical History Medical History:
[2022-12-17 12:53] LABS: Basophils Absolute Auto 0.1 K/mm3 (0.0-0.1); Basophils Percent Auto 0.3 % (0.2-1.2); Eosinophils Percent Auto 0.1 % (0-4.4); Hematocrit 50.2 % (37.0-47.0); Hemoglobin 15.6 g/dL (12.0-15.0); Immature Granulocyte Absolute 0.13 K/mm3 (0.00-0.031); Immature Granulocyte Percent A 0.7 % (0-0.5); Lymphocytes Absolute Auto 2.62 K/mm3 (0.9-3.2); Lymphocytes Percent Auto 14.4 % (18.3-44.2); Mean Corpuscular HGB Conc 31.1 g/dl (32-36); Mean Corpuscular Hemoglobin 27.7 pg (26-34); Mean Platelet Volume 9.3 fl (7.4-10.4); Monocytes Absolute Auto 2.5 K/mm3 (0.1-0.6); Monocytes Percent Auto 13.6 % (2.6-8.5); Neutrophils Absolute Auto 12.9 K/mm3 (1.3-6.7); Neutrophils Percent Auto 70.9 % (45.5-73.1); Platelet Count Result 240 k/mm3 (150-375); Red Blood Count 5.64 M/mm3 (4.2-5.4); Red Cell Distribution Width 13.3 % (11.5-14.5); White Blood Count 18.2 K/mm3 (4.5-10.0)
[2022-12-17 13:03] LABS: Alanine Aminotransferase 19 U/L (6-35); Albumin Level 4.5 g/dL (3.5-5.1); Alkaline Phosphatase 102 U/L (38-126); Anion Gap 7 mmol/L (8-16); Aspartate Amino Transferase 20 U/L (14-36); Bilirubin,Total 0.8 mg/dL (0.2-1.3); Blood Urea Nitrogen 16 mg/dL (7-17); Calcium 11.6 mg/dL (8.4-10.2); Carbon Dioxide 27 mmol/L (22-30); Chloride 103 mmol/L (98-107); Estimated CRCL calculation 52 ml/min; Estimated Glomerular Filt Rate > 60; Glucose 97 mg/dL (65-110); Potassium 4.2 mmol/L (3.4-5.0); Sodium 137 mmol/L (137-145)
[2022-12-17] MEDS: HYDROcodone/acetaminophen (*CRX) 10-325 MG TABLET 1 TAB PO (13:53)
[2022-12-17] MEDS: ONDANSETRON HCL ODT 4 MG TABLET PO (13:54)
[2022-12-17] MEDS: LIDOCAINE 5% PATCH 1 PATCH TRANSDERM (13:57)
[2022-12-17] MEDS: CYCLOBENZAPRINE HCL 10 MG TABLET PO (13:58)
[2022-12-17 15:32] LABS: Appearance Urine Cloudy (Clear); Bacteria Urine None Seen /hpf; Bilirubin Urine 1+ (Negative); Blood Urine Negative (Negative); Calcium Oxalate Crystals Urine Present /hpf; Color Urine Dark Yellow (Yellow); Glucose Urine UA Negative (Negative); Ketones Urine Trace mg/dL (Negative); Leukocyte Esterase Ur 2+ LEU/UL (Negative); Nitrate Urine Negative (Negative); Non Pathogenic Casts 0-2; Protein Urine 1+ mg/dL (Negative); Specific Grav Ur 1.021 (1.001-1.035); Squamous Epithelial Cell Urine Occasional /hpf (Few); Urobilinogen Urine 0.2 mg/dL (<2.0); WBC Urine 21-50 /hpf; pH Urine 5.5 (5.0-9.0)
[2022-12-17 15:33] LABS: Add Urine Microscopic? YES
== END 2022-12-17 16:40 | disposition home or self-care (01) ==
PROVIDERS: Nurse Practitioner Family; Emergency Provider Student in an Organized Health Care Education/Training Program; PCP Family Medicine
DX: N39.0 Urinary tract infection, site not specified (principal); M54.50 Low back pain, unspecified; I10 Essential (primary) hypertension; J45.30 Mild persistent asthma, uncomplicated; J44.9 Chronic obstructive pulmonary disease, unspecified; E66.01 Morbid (severe) obesity due to excess calories; Z68.36 Body mass index [BMI] 36.0-36.9, adult; G47.33 Obstructive sleep apnea (adult) (pediatric); M47.816 Spondylosis without myelopathy or radiculopathy, lumbar region; E53.8 Deficiency of other specified B group vitamins; Z98.1 Arthrodesis status; Z96.643 Presence of artificial hip joint, bilateral; Z96.653 Presence of artificial knee joint, bilateral; Z87.891 Personal history of nicotine dependence; Z90.49 Acquired absence of other specified parts of digestive tract; Z79.82 Long term (current) use of aspirin
CPT/HCPCS: 36415; 72131; 72192; 80053; 81001; 85025; 87086; 99284; A9270

== ENCOUNTER 2023-02-18 09:29 | Emergency (ER) | payer MEDICARE, BC, SELFPAY ==
--- NOTE | ~2023-02-18 | XR_ITS ---
XR wrist RT 2V DATE: 02/18/2023 11:06 INDICATION: Pain with movement TECHNIQUE: AP and lateral views COMPARISON: None FINDINGS: There is prominent osteoarthritic narrowing and spurring at the first carpometacarpal joint . No fracture, dislocation, periosteal reaction or bone destruction. Mild chondrocalcinosis at the tria ngular cartilage. 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 SMISSION TESTER
[2023-02-18 10:42] VITALS: BP 154/68; PULSE 80; RESP 20; TEMP 36.1; O2SAT 98
--- NOTE | 2023-02-18 11:10 | ED.GENADULT ---
HPI - General Adult General Chief complaint: Extremity Injury, Upper <Tiffanie Sosa APRN - Last Filed: 02/18/23 11:14> Stated complaint: r wrist pain <Tiffanie Sosa APRN - Last Filed: 02/18/23 11:14> Time Seen by Provider: 02/18/23 11:59 <Tiffanie Sosa SUPERVISOR [employer]ANT - Last Filed: 02/18/23 11:14> Source: patient <Katelyn Bourgeois MD - Last Filed: 02/19/23 14:09> Mode of arrival: ambulatory <Katelyn Bourgeois MD - Last Filed: 02/19/23 14:09> Limitations: no limitations <Katelyn Bourgeois MD - Last Filed: 02/19/23 14:09> History of Present Illness HPI narrative: Bethany Wilson is a 77 y/o female who states she has had right wrist pain that started a couple months ago off and on and now it is becoming more frequent and getting worse. She states her pain is from her right thumb up through her wrist to her elbow. She states she had a severe incident of pain yesterday that felt that something ripped inside her forearm and pain was severe/ She states she has some decrease ROM to her right thumb Denies any recent fall/ known trauma / reports she has been using a walker since September after back surgery and is in Physical therapy. <Tiffanie Grey June [employer] - Last Filed: 02/18/23 11:14> Bethany Wilson is a 77 y/o L hand dominant female who states she has had right wrist pain that started a couple months ago off and on and now it is becoming more frequent and getting worse. It started at the base of her thumb initially and occurring intermittently at first but now constant. . She states her pain is from her right thumb up through her wrist to her elbow. She states she had a severe incident of pain yesterday that felt that something ripped inside her forearm and pain was severe/ Described as sharp and shooting, radiating into her lower arm along the radial edge. It will spasm and feel stiff. She states she has some decrease ROM to her right thumb Denies any recent fall/ known trauma / reports she has been using a walker since September after back/spinal surgery (Dr aggie Cota) and is in Physical therapy. No hyperflexion/hyperextension. Occasionally cooks but not significant repetivie movements. She still has a muscle relaxer and hydrocodone remainins from spinal surgery. Also trialed lidocaine patches. Hx carpal tunnel release surgery <Katelyn Bourgeois MD - Last Filed: 02/19/23 14:09> Related Data Home medications: Home Medications Medication Instructions Recorded Confirmed aspirin 81 mg tablet 81 mg PO DAILY 02/22/20 12/27/22 omeprazole 20 mg capsule,delayed 20 mg PO DAILY 04/05/20 12/27/22 release clobetasol 0.05 % scalp solution 1 applic topical DAILY 04/03/22 12/27/22 pimecrolimus 1 % topical cream 1 applic topical ONCE 04/03/22 12/27/22 tacrolimus 0.1 % topical ointment 1 applic topical BID 04/03/22 12/27/22 acetaminophen 500 mg capsule 1,000 mg PO Q6H PRN Pain 09/17/22 12/27/22 cholecalciferol (vitamin D3) 50 50 mcg PO DAILY 09/17/22 12/27/22 mcg (2,000 unit) tablet duloxetine 60 mg capsule,delayed 60 mg PO QAM 09/17/22 12/27/22 release losartan 50 mg-hydrochlorothiazide 1 tablet PO QAM 09/17/22 12/27/22 12.5 mg tablet <Tiffanie Sosa, SUPER[employer] - Last Filed: 02/18/23 11:14> Allergies/adverse reactions: Allergies Allergy/AdvReac Type Severity Reaction Status Date / Time Penicillins Allergy Severe Anaphylaxis Verified 12/27/22 09:54 adhesive Allergy Rash, Verified 12/27/22 09:54 REDNESS AT SITE latex Allergy BLISTERS Verified 12/27/22 09:54 IN MOUTH Sulfa (Sulfonamide Allergy BLURRY Verified 12/27/22 09:54 Antibiotics) VISION, FAINT FEELING epinephrine AdvReac HEART Verified 12/27/22 09:54 RACING <Tiffanie Sosa, SUPER[employer] - Last Filed: 02/18/23 11:14> [facility] Past Medical History Medical History: Medical History (Updated 02/19/23 @ 00:07 by Background Daemon) Allergies Anxiety and depression BMI greater than 40 Cholelithi
[2023-02-18] MEDS: KETOROLAC 30 MG/ML VIAL (*BKC) 15 MG IM (12:35)
--- NOTE | 2023-02-25 12:12 | PC.NURSE ---
LATE ENTRY This note is being entered to document information to the patient's record. The following information was omitted on [02/18/23 ], by [Quinton Montoya]. Thumb spica applied to r wrist.
== END 2023-02-18 12:59 | disposition home or self-care (01) ==
PROVIDERS: Emergency Provider Student in an Organized Health Care Education/Training Program; PCP Family Medicine
DX: M18.9 Osteoarthritis of first carpometacarpal joint, unspecified (principal); M11.231 Other chondrocalcinosis, right wrist; I10 Essential (primary) hypertension; E78.2 Mixed hyperlipidemia; J45.30 Mild persistent asthma, uncomplicated; J44.9 Chronic obstructive pulmonary disease, unspecified; E66.01 Morbid (severe) obesity due to excess calories; E53.8 Deficiency of other specified B group vitamins; G47.33 Obstructive sleep apnea (adult) (pediatric); Z98.1 Arthrodesis status; Z96.653 Presence of artificial knee joint, bilateral; Z96.643 Presence of artificial hip joint, bilateral; Z87.891 Personal history of nicotine dependence; Z90.49 Acquired absence of other specified parts of digestive tract
CPT/HCPCS: 29125; 73100; 96372; 99283; J1885

== ENCOUNTER → 2023-03-05 12:33 | Outpatient (CLI) | payer MEDICARE, BC, SELFPAY ==
--- NOTE | ~2023-03-05 | MM_ITS ---
EXAMINATION: MM screening shannan BI w alisa HISTORY: Screening mammogram, family history of breast cancer in her mother. TECHNIQUE: Craniocaudal and mediolateral oblique 3-D tomosynthesis images were obtained and synthetic 2-D images were generated. CAD analysis was submitted and interpreted. COMPARISON: No prior mammogram is available for comparison at this institution. BREAST PARENCHYMAL COMPOSITION: The breasts are almost entirely fatty. FINDINGS: RIGHT BREAST: A low-density mass is present in the posterior third of the breast at the 6:00 location , 9 cm from the nipple. A mass in the upper outer quadrant of the breast appears to contain central f at, consistent with an intramammary lymph node LEFT BREAST: No suspicious mass, calcification, or architectural distortion are identified to suggest malignancy. A mass in the upper outer quadrant of the breast appears to contain central fat, consist ent with an intramammary lymph node. IMPRESSION: 1. Right breast mass which may represent the patient's baseline however no comparison is currently av ailable. 2. Comparison with prior mammograms is necessary. BI-RADS Category 0: Incomplete: Needs comparison with prior mammograms. Reviewed, dictated and finalized at location A. STRIAL RELATIONS REPRESENTATIVE IMPRESSION: 1. Right breast mass which may represent the patient's baseline however no comp arison is currently available. 2. Comparison with prior mammograms is necessary. BI-RADS Category 0: Incomplete: Needs comparison with prior mammograms.
== END ==
PROVIDERS: PCP Family Medicine; Visit Provider Obstetrics & Gynecology
DX: Z12.31 Encounter for screening mammogram for malignant neoplasm of breast (principal); R92.8 Other abnormal and inconclusive findings on diagnostic imaging of breast
CPT/HCPCS: 77063; 77067

== ENCOUNTER 2023-03-20 10:07 | Outpatient (CLI) | payer MEDICARE, BC, SELFPAY ==
--- NOTE | 2023-03-20 12:00 | NEURO_ITS ---
Impression: # Complains of numbness of right hand. # Normal Nerve Conduction Study. # No Carpal Tunnel Syndrome or ulnar neuropathy. # Normal needle/EMG exam. Nerve Conduction Studies Anti Sensory Summary Table Stim Site NR Peak (ms) P-T Amp (?V) Site1 Site2 Delta-P (ms) Dist (cm) Julio (m/s) Right Median Anti Sensory (2-3nd Digit) Wrist 3.1 23.4 Wrist 2-3nd Digit 3.1 14.0 45 Wrist 3.2 27.7 Wrist 2-3nd Digit 3.1 14.0 45 Right Radial Anti Sensory (Base 1st Digit) Wrist 2.8 5.8 Wrist Base 1st Digit 2.8 0.0 Right Ulnar Anti Sensory (5th Digit) Wrist 2.5 32.6 Wrist 5th Digit 2.5 14.0 56 Motor Summary Table Stim Site NR Onset (ms) O-P Amp (mV) Site1 Site2 Delta-0 (ms) Dist (cm) Julio (m/s) Right Median Motor (Abd Poll Brev) Wrist 3.2 3.8 Elbow Wrist 4.5 27.0 60 Elbow 7.7 3.2 Right Ulnar Motor (Abd Dig Minimi) Wrist 2.6 7.4 A Elbow Wrist 4.8 28.0 58 A Elbow 7.4 6.3 B Elbow Wrist 3.3 19.0 58 B Elbow 5.9 3.0 F Wave Studies NR F-Lat (ms) L-R F-Lat (ms) Right Median (Mrkrs) (Abd Poll Brev) 26.65 Right Ulnar (Mrkrs) (Abd Dig Min) 27.06 EMG Side Muscle Nerve Root Ins Act Fibs Amp Dur Recrt Comment Right 1stDorInt Ulnar C8-T1 Nml Nml Nml Nml Nml Right Ext Indicis Radial (Post Int) C7-8 Nml Nml Nml Nml Nml Right Ext Digitorum Radial (Post Int) C7-8 Nml Nml Nml Nml Nml Right BrachioRad Radial C5-6 Nml Nml Nml Nml Nml Right PronatorTeres Median C6-7 Nml Nml Nml Nml Nml Right Abd Poll Brev Median C8-T1 Nml Nml Nml Nml Nml MTDD
== END 2023-03-20 10:08 | disposition home or self-care (01) ==
PROVIDERS: PCP Family Medicine; Referring Provider Plastic Surgery; Visit Provider Nurse Practitioner Family
DX: E66.01 Morbid (severe) obesity due to excess calories (principal); M25.539 Pain in unspecified wrist; R20.2 Paresthesia of skin
CPT/HCPCS: 95886; 95909

== ENCOUNTER → 2023-04-16 09:14 | Outpatient (CLI) | payer MEDICARE, BC, SELFPAY ==
--- NOTE | ~2023-04-16 | MMUS_ITS ---
EXAMINATION: MM diagnostic shannan RT w alisa, US breast RT limited HISTORY: Posterior lower central right breast mass TECHNIQUE: Additional 3-D tomosynthesis images of the right breast were performed and synthetic 2-D i mages were generated. Rolled medial and lateral CC views. CAD analysis was submitted and interpreted. High resolution targeted right breast ultrasound was performed. COMPARISON: 03/05/2013, 10/17/2017, bilateral screening mammogram examinations FINDINGS: MAMMOGRAPHIC FINDINGS: Irregular approximately up to approximately 5-6 mm mass is noted posteriorly in the lower mid right b reast. ULTRASOUND: 6:00 7 cm from nipple: 2.5 x 5.5 x 5.2 mm parallel mildly irregular opacity is noted, without interna l vascularity or posterior shadowing. Due to irregular mammographic and sonographic margins and sugge stion of interval irregularity and increased size since 2017 and 2016, ultrasound-guided biopsy is re commended. IMPRESSION: 1. Indeterminate 5.5 mm irregular mass 6:00 7 cm from nipple 2. Ultrasound-guided biopsy of right breast 6:00 lesion is recommended BI-RADS category 4, suspicious findings. Dr. Schuster telephoned the report and ultrasound-guided biopsy recommendation of right breast 6:00 lesio n on 04/16/2023 at 1040 hours to Annealer Helper Tayler Reviewed, dictated and finalized at location A. END DEVELOPER IMPRESSION: 1. Indeterminate 5.5 mm irregular mass 6:00 7 cm from nipple 2. Ultrasound-guided biopsy of right breast 6:00 lesion is recommended BI-RADS category 4, suspicious findings. Dr. Schuster telephoned the report and ultrasound-guided biopsy recommendation of r ight breast 6:00 lesion on 04/16/2023 at 1040 hours to Annealer Helper Tayler IMPRESSION: 1. Indeterminate 5.5 mm irregular mass 6:00 7 cm from nipple 2. Ultrasound-guided biopsy of right breast 6:00 lesion is recommended BI-RADS category [address], [address] Schuster telephoned the report and ultrasound-guided biopsy recommendation of r ight breast 6:00 lesion on 04/16/2023 at 1040 hours to Annealer Helper Anna
== END ==
PROVIDERS: PCP Family Medicine; Visit Provider Obstetrics & Gynecology
DX: R92.8 Other abnormal and inconclusive findings on diagnostic imaging of breast (principal); N63.10 Unspecified lump in the right breast, unspecified quadrant
CPT/HCPCS: 76642; 77061; 77065; G0279

== ENCOUNTER 2023-06-19 09:37 | Outpatient (CLI) | payer MEDICARE, BC, SELFPAY ==
--- NOTE | ~2023-06-19 | CT_ITS ---
EXAMINATION: CT lumbar spine wo con DATE: 06/19/2023 10:16 INDICATION: Spinal stenosis, lumbar region with neurogenic claudication. TECHNIQUE: Computed tomography (CT) of the lumbar spine was performed without intravenous contrast. A utomated exposure control and iterative reconstruction technique were employed. The dose-length produ ct was 1043.98 mGy-cm. COMPARISON: CT lumbar spine 12/17/2022 FINDINGS: There is a 3 mm nodule in left lung lower lobe, likely benign. There is a 13 mm mass in lef t adrenal gland measuring soft tissue attenuation without change, likely an adenoma. Aortic atheroscl erosis is noted. There is 12 degrees dextroscoliosis of lumbar spine. There is 5 mm anterolisthesis o f L4 on L5. There is mild chronic anterior wedging of L1 vertebral body. There are changes of anterio r and posterior fusion procedures at L4-L5 with interbody devices and pedicle screws. There are bridg ing endplate osteophytes at T10-T11 and T11-T12. There is mildly decreased disc height at T12-L1. The re is severely decreased disc height at L1-L2, L2-L3, and L3-L4. There is severely decreased disc hei ght at L5-S1 with interbody fusion. The following disc levels are specifically discussed: L1-L2: The disc is bulging. There is severe bilateral facet joint osteoarthritis. There is mild right and moderate left neural foraminal stenosis. There is mild central canal stenosis. L2-L3: The disc is bulging. There is moderate bilateral facet joint osteoarthritis. There is mild rig ht and moderate left neural foraminal stenosis. There is mild central canal stenosis. L3-L4: The disc is bulging. There is severe bilateral facet joint osteoarthritis. There is moderate b ilateral neural foraminal stenosis. There is mild central canal stenosis. L4-L5: There is mild bilateral facet joint osteoarthritis. There is mild bilateral neural foraminal s tenosis. There is no central canal stenosis. There is posterior decompression. L5-S1: The disc is bulging. There is mild bilateral facet joint hypertrophy. There is moderate bilate ral neural foraminal stenosis. There is mild central canal stenosis. IMPRESSION: 1. Severe lumbar spondylosis. 2. Lumbar dextroscoliosis. 3. Anterior and posterior fusion procedures at L4-L5. Reviewed, dictated and finalized at location A.
== END 2023-06-19 09:38 | disposition home or self-care (01) ==
LOC: ANHIMG 09:38
PROVIDERS: PCP Family Medicine; Visit Provider Neurological Surgery
DX: M48.062 Spinal stenosis, lumbar region with neurogenic claudication (principal); M47.896 Other spondylosis, lumbar region; Z98.1 Arthrodesis status
CPT/HCPCS: 72131

== ENCOUNTER 2023-11-01 12:48 | Outpatient (CLI) | payer MEDICARE, BC, SELFPAY ==
--- NOTE | ~2023-11-01 | DEXA_ITS ---
Bone Density Report Name: YUKI ARIAS Age: 78 Sex: Female Ethnicity: White Date of : 1945 Indication: postmenopausal; screening for osteoporosis; prior fracture; Referring Provider: RADHA OLIVER Study: Bone densitometry was performed. Exam Date: November 01, 2023 Accession number: [id number] Bone Density: Region BMD T-score Z-score Classification AP Spine(L1-L4) 1.181 1.2 3.8 Normal World Health Organization criteria for BMD impression classify patients as: Normal (T-score at or above -1.0), Osteopenia (T-score between -1.0 and -2.5), or Osteoporosis (T-score at or below -2.5). Clinical Information Provided by Patient: Has had a low trauma fracture Has used the following medications: Vitamin D Menopause Age: 35 No regular weight bearing exercise Drinks caffeinated beverages Onset of menses at age 12 Number of children 0 Impression: The patient has normal bone mass. The patient has risk factors, including: previous fracture. Discussion: LOW RISK OF FRACTURE; BONE DENSITY IS WELL ABOVE THE MINIMUM DESIRABLE LEVEL AND ABOVE AVERAGE FOR AGE AND SEX AT ALL SKELETAL SITES TESTED. This person's bone density is above expected limits for age and sex. This is rarely clinically significant, but should be pursued if there are significant musculoskeletal complaints. The patient should follow a healthful lifestyle (good nutrition with adequate calcium and vitamin D, and appropriate weight-bearing exercise). Follow-Up: Consider repeating this study in 5 years or sooner if there is some new clinical indication. Reported by: AILYN on 11/01/2023 1:31:00 PM. Reviewed, dictated and finalized at location [facility]
== END 2023-11-01 12:49 | disposition home or self-care (01) ==
LOC: ANHIMG 12:49
PROVIDERS: PCP Family Medicine; Visit Provider Family Medicine
DX: M81.0 Age-related osteoporosis without current pathological fracture (principal); E03.9 Hypothyroidism, unspecified; E83.52 Hypercalcemia; M47.816 Spondylosis without myelopathy or radiculopathy, lumbar region; R79.89 Other specified abnormal findings of blood chemistry
CPT/HCPCS: 77080

== ENCOUNTER 2024-07-23 10:03 | Outpatient (CLI) | payer MEDICARE, SELFPAY ==
--- OUTSIDE RECORDS SUMMARY | 2024-07-23 11:07 | XMS_ITS | Clinical Summary ---
Author Organization [facility] Address [address] [place] [address] Care Team Providers Care Pinion Sorter Name Role Phone Denys Lundy MD Primary Care Provider [phone] Source Comments [facility],non-owned Affiliates and Associated Physician Practices is amultiple site organization consisting of ambulatory clinics and hospital sitesin [place], [place], [place] and [place]. This disclosure is being madepursuant to the Care Everywhere program and may not contain all information available regarding this patient. Last updated 17.[facility] Allergies Active Allergy Reactions Criticality Noted Date Comments Dexamethasone Rash Medium 08/13/2018 Epinephrine Unknown Medium 08/13/2018 Latex Rash Medium 08/13/2018 other [Other] Dizziness Low 08/13/2018 Received name: Sulfa (sulfonamide Antibiotics) Penicillin G Rash Medium 08/13/2018 Rosuvastatin Unknown Medium 10/21/2018 Medications * Be aware that medications may not be up to date on this document. Alwaysverify current medications with the patient. atorvastatin (LIPITOR) 10 MG tablet Take 1 (one) tablet by mouth once daily Active Cyanocobalamin (VITAMIN B 12 PO) Take 1 tablet by mouth once daily Active ezetimibe (ZETIA) 10 MG tablet Take 1 (one) tablet by mouth once daily Active sertraline (ZOLOFT) 100 MG tablet Take 200 mg by mouth at bedtime Active albuterol HFA (Proventil; Ventolin; Proair) 108 (90 Base) MCG/ACT inhaler Inhale 2 (two) puffs by mouth every 4 hours as needed Active azithromycin (Zithromax) 250 MG tablet Take 250 mg by mouth once daily Active buPROPion XL 24hr (Wellbutrin-XL) 150 MG tablet Take 150 mg by mouth every morning Active Cholecalciferol 50 MCG (2000 UT) Take 2,000 Units by mouth once daily Active colesevelam (Welchol) 625 MG tablet Take 3 (three) tablets by mouth 2 times daily Active desloratadine (Clarinex) 5 MG tablet Take 1 (one) tablet by mouth once daily Active diazePAM (Valium) 2 MG tablet Take 1 (one) tablet by mouth as needed Active DULoxetine (Cymbalta) 60 MG capsule Take 1 (one) capsule by mouth once daily Active ferrous sulfate EC (Ferrous Sulfate) 324 (65 Fe) MG tablet Take 1 (one) tablet by mouth once daily Active furosemide (Lasix) 20 MG tablet Take 1 (one) tablet to 2 (two) tablets by mouth once daily as needed Active gabapentin (Neurontin) 300 MG capsule Take 300 mg by mouth nightly as needed Active losartan - hydroCHLOROthiazide (Hyzaar) 50-12.5 MG tablet Take 1 (one) tablet by mouth once daily Active montelukast (Singulair) 10 MG tablet Take 1 (one) tablet by mouth once daily Active tacrolimus (Protopic) 0.1 % ointmentIndications:Al lergic contact dermatitis due to cosmetics Apply to face two times daily. 30 days supply. 60 g 11 Active aspirin EC (Ecotrin) 81 MG tablet Take 1 (one) tablet by mouth once daily Active diclofenac sodium (Voltaren) 1 % gel 2 (two) g 4 times daily Active HYDROcodone-acetaminop hen ([place]) 10-325 MG tablet Take 1 (one) tablet by mouth every 4 hours as needed For pain. Active lidocaine (Lidoderm) 5 % patch 1 (one) patch once daily 02/02/2 024 Active olopatadine (Patanase) 0.6 % nasal solution [place] 1 (one) spray into each nostril 2 times daily 023 Active neqivxxk-tstkphngkb-xm lymyxin (Neosporin) [phone] ophthalmic ointment as needed Active finasteride (Proscar) 5 MG tabletIndications:Fema le pattern hair loss Take 1 (one) tablet by mouth once daily 90 tablet 3 024 Active pimecrolimus (Elidel) 1 % creamIndications:Other atopic dermatitis APPLY TO THE AFFECTED AREA TWICE DAILY NEEDED 60 g 11 024 Active clobetasol (Temovate) 0.05 % solutionIndications:Ot her seborrheic dermatitis Apply to scalp bid prn. 30 days supply. 50 mL 024 Active budesonide-formoterol (Symbicort) 80-4.5 MCG/ACT inhaler Inhale 2 (two) puffs by mouth 2 times daily Active acetaminophen (Tylenol) 500 MG tablet Take 1 (one) tablet by mouth every 4 hours as needed for Fever or Pain Maximum allowable Acetaminophen amount = 4 Grams (4000 mg) / 24 hours. 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 She has some diffuse degenerative disc disease but is not myelopathic at this time. If she develops progressive symptoms further workup of the neck would be indicated Immunizations Immunization Administration Dates Next Due INFLUENZA VACCINE 11/15/2018 Family History Medical History Relation Name Comments None Known Brother None Known Father None Known Maternal Aunt None Known Maternal Grandfather None Known Maternal Grandmother None Known Maternal Uncle None Known Mother None Known Other None Known Paternal Aunt None Known Paternal Grandfather None Known Paternal Grandmother None Known Paternal Uncle None Known Sister Asthma Neg Hx CVA Neg Hx Cancer - Breast Neg Hx Cancer - Other Neg Hx Cancer - Skin, Melanoma Neg Hx Cancer - Skin, Non Melanoma Neg Hx Eczema Neg Hx Hemophilia Neg Hx Psoriasis Neg Hx Relation Name Status Comments Brother Father Maternal Aunt Maternal Grandfather Maternal Grandmother Maternal Uncle Mother Other Paternal Aunt Paternal Grandfather Paternal Grandmother Paternal Uncle Sister Social History Tobacco Use Types Packs/Day Years Used Date Smoking Tobacco: Former Smokeless Tobacco: Never Tobacco Cessation:Counseling Given: Not Answered Alcohol Use Standard Drinks/Week Comments Never 0 (1 standard drink = 0.6 oz pur e alcohol) AUDIT-C Answer Date Recorded Frequency of Alcohol Consumption Never 04/08/2019 Average Number of Drinks Not on file 020 Frequency of Binge Drinking Not on file 03/15 Comments Unknown Sex and Gender Information Value Date Recorded Sex Assigned at Not on file Legal Sex Female 3:41 PM [employer]ROUGH [employer] Gender Identity Not on file Sexual Orientation Not on file Plan of Treatment Upcoming Encounters Date Type Department Care Team (Late st Contact Info) Description 09/30/2024 2:00 PM CDT Office Visit [facility] - General Dermatology [address] [place] [phone] John Iraheta MD [address] [facility] [address] [place] [address] Health Maintenance Due Date Last Done Comments BONE DENSITY TESTING 1945 MEDICARE AWV 12 MONTHS 1945 HEPATITIS C SCREENING 08/05/1963 DTAP/TDAP/TD VACCINES (1 - Tdap) 1964 PNEUMOCOCCAL VACCINE 50+ (1 of 1 - PCV) 08/10/1995 ZOSTER VACCINE (1 of 2) 08/10/1995 Respiratory Syncytial Virus (RSV) Vaccine Pt: or over 60 yrs (1 - 1-dose 75+ series) 2020 COVID-19 VACCINE ( - 2023-2 5 season) 2023 DEPRESSION SCREENING 02/12/2024 INFLUENZA VACCINE (Season Ended) 2024 11/16/19 19 HEPATITIS B VACCINE Aged Out No longe r eligible based on patient's age to complete this topic HIB VACCINE Aged Out No longer eligi ble based on patient's age to complete this topic HPV VACCINE Aged Out No longer eligi ble based on patient's age to complete this topic MENINGOCOCCAL (Group B) VACC INE SHARED DECISION-MAKING Aged Out No longer eligibl e based on patient's age to complete this topic MENINGOCOCCAL GROUPS A/C/Y/W VACCINE Aged Out No longer eligible b ased on patient's age to complete this topic Insurance MEDICARE MEDICARE Care Teams Pinion Sorter Relationship Specialty Start Date End Date Denys Lundy MD [address] [place] [id number] [facility] - General 04/02/19
--- OUTSIDE RECORDS SUMMARY | 2024-07-23 11:07 | XMS_ITS | Clinical Summary ---
Author Organization [facility] Physician Office Building [address] [place] [id number] Care Team Providers Care Child Care Center Administrator Name Role Phone Denys Lundy MD Primary Care Provider [phone] Corrine Wolfe Unavailable [phone] Anjali Fatima MD Unavailable [phone] Allergies Active Allergy Reactions Criticality Noted Date Comments Epinephrine Chest tightness Medium 08/13/2018 Latex Rash Medium 08/13/2018 Penicillin G Rash Medium 08/13/2018 Rosuvastatin Muscle pain Medium 10/21/2018 Sulfa (Sulfonamide Antibiotics) Dizziness Low 04/2018 Dexamethasone Rash Medium 08/13/2018 Medications colesevelam (WELCHOL) 625 mg tablet Take 3 tablets (1,875 mg total) by mouth 2 (two) times a day with meals Active atorvastatin (LIPITOR) 10 mg tablet Take 1 tablet (10 mg total) by mouth daily Active ezetimibe (ZETIA) 10 mg tablet Take 1 tablet (10 mg total) by mouth daily Active sertraline (ZOLOFT) 100 mg tablet Take 1 tablet (100 mg total) by mouth daily Active montelukast (SINGULAIR) 10 mg tablet Take 1 tablet (10 mg total) by mouth nightly Active cholecalciferol (VITAMIN D-3) 2,000 unit capsule Take 2.5 capsules (5,000 Units total) by mouth daily Active DULoxetine DR (CYMBALTA) 60 mg capsule Take 1 capsule (60 mg total) by mouth daily Active aspirin 81 mg enteric coated tablet Take 1 tablet (81 mg total) by mouth daily Active cyanocobalamin, vitamin B-12, (VITAMIN B-12 ORAL) Take 1 tablet by mouth every other day Active albuterol sulfate (PROAIR HFA INHAL) Inhale as needed Active losartan-hydroC HLOROthiazide (HYZAAR) 50-12.5 mg per tablet Take 1 tablet by mouth daily Active desloratadine (CLARINEX) 5 mg tablet Take 1 tablet (5 mg total) by mouth daily 04/07/2021 Active budesonide/glyc opyr/formoterol (BREZTRI AEROSPHERE INHAL) Inhale Active furosemide (LASIX) 20 mg tabletIndicatio ns:Localized edema Take 1-2 tablets by mouth daily as needed for swelling. 30 tablet 1 02/06/2023 Active lidocaine (LIDODERM) 5 % APPLY NEW PATCH TO SKIN DAILY AND LEAVE ON MOST PAINFUL AREA FOR UP TO 12 HOURS 03/15/2023 Active diclofenac sodium (VOLTAREN) 1 % gel 02/18/2023 Active ferrous sulfate ER 324 mg (65 mg iron) EC tablet Take 1 tablet (324 mg total) by mouth daily 03/14/2023 Active Linzess 145 mcg capsule Take 1 capsule (145 mcg total) by mouth daily 03/07/2023 Active pimecrolimus (ELIDEL) 1 % cream APPLY TO THE AFFECTED AREA TWICE DAILY NEEDED 02/15/2023 Active omeprazole (PriLOSEC) 40 mg capsule 08/12/2023 Active Active Problems Problem Noted Date Diagnosed Date Mass of right breast 05/05/2023 Abnormal mammogram of right breast 05/05/2023 Shortness of breath 04/17/2023 Mixed hyperlipidemia 12/13/2022 Other chest pain 09/25/2019 Itch of eye 07/23/2019 Complete tear of left rotator cuff 03/31/2019 Assessment & Plan (08/16/2020 11:36 AM CDT): Patient is progressing in therapy but just got into the strengthening phase following revision rotator cuff repair. An extension of her therapy was provided. If she completes out the formal therapy would encourage her work on home exercises on an ongoing basis. Assessment & Plan (06/28/2020 12:22 PM CDT): Patient has some persistent pain or shoulder following revision rotator cuff repair which is not unexpected. She has integrity of the cuff on strength testing. Extension of her therapy was provided. After reviewing the treatment options she elected undergo a cortisone injection today. She tolerated the procedure well. Assessment & Plan (04/26/2020 11:19 AM CDT): Patient's recovery from her surgery was interrupted by acute cholecystitis and therapy is now OB resume period of follow-up prescription was provided. Assessment & Plan (03/14/2020 10:30 AM CRIMPING MACHINE OPERATOR): Patient's progresses and slowed by her ill health. Her health is improving in extension for therapy was provided. Would like to reassess in 6-8 weeks Assessment & Plan (06/18/2019 12:05 PM CDT): Patient has been if in from limited home therapy but would do better at a therapy facilit. She is approved to resume therapy in a facility tomorrow. Patient should continue with COVID-19 precautions but would encourage her work on stretching exercises to help prevent a frozen shoulder. Assessment & Plan (03/31/2019 11:51 AM CRIMPING MACHINE OPERATOR): Patient was found have a full-thickness rotator cuff tear that was T-shaped. It was repaired and at this point she can begin working on pendulum exercises. Formal physical therapy was prescribed. She is to return for follow-up in four weeks Nontraumatic complete tear of left rotator cuff 12/15/2018 Assessment & Plan (12/14/2019 11:10 AM CRIMPING MACHINE OPERATOR): Patient had undergone revision right cuff repair with her therapy disrupted during COVID-19. The patient patient's therapy was extended period as she completes out the formal therapy would encourage her to continue working on home exercises to help strengthen the arm. Assessment & Plan (12/15/2018 11:17 AM CRIMPING MACHINE OPERATOR): Patient's history and exam is consistent with a full-thickness recurrent rotator cuff tear. She had undergone previous arthroscopic repair. Would recommend an MRI to evaluate the integrity of the cuff initiate appropriate treatment once results are available Postoperative atrial fibrillation 10/21/2018 RBBB 10/21/2018 HTN (hypertension), benign 10/21/2018 DANIEL on CPAP 10/21/2018 Morbid obesity with BMI of 40.0-44.9, adult 10/12 Localized edema 10/21/2018 Degenerative disc disease, cervical 09/30/2018 Assessment & Plan (09/30/2018 11:24 AM CDT): Patient does have what appear to be older avulsion fractures off of osteophytes of the lower cervical spine anteriorly in the spinous process. She has some diffuse degenerative disc disease but is not myelopathic at this time. 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 The hooked acromion likely contributes to the issue she is having with the upper arm. Having a favorable response in the past reviewing the treatment options patient elected undergo a cortisone injection today. She tolerated the procedure well. If she is having recurring issues consideration for removal of the impinging lower surface of the acromion would likely be beneficial Encounters Date Type Department Care Team Description 05/28/2024 10:00 AM CDT - 05/28/2024 11:59 PM CDT Hospital Encounter [facility] - Breast Imaging [address] [place] [address] Floor [address] [place] [address] Abnormal mammogram of right breast Discharge Disposition: Discharge to home or self care 05/28/2024 9:30 AM CDT - 05/28/2024 11:59 PM CDT Hospital Encounter [facility] - Breast Imaging [address] [facility] Floor [address] [place] [address] Abnormal mammogram of right breast Discharge Disposition: Discharge to home or self care 05/28/2024 9:30 AM CDT Office Visit [facility] Surgery [address] [place] [address] [address] [place] [address] Margareth Cotter MD PhD Abnormal mammogram of right breast (Primary Dx); Mass of right breast, unspecified quadrant 05/28/2024 Orders Only [facility] Surgery [address] [place] [address] [address] [place] [id number] Margareth Cotter MD PhD Mass of right breast, unspecified quadrant (Primary Dx); Abnormal mammogram of right breast 05/27/2024 Orders Only [facility] Surgery [address] [place] [address] [address] [place] [id number] Margareth Cotter MD PhD Abnormal mammogram of right breast (Primary Dx) from Last 3 Months Immunizations Immunization Administration Dates Next Due Influenza, Quadrivalent, Hig h Dose, Preservative Free, Intrr 11/16/2019 Influenza, Trivalent, High D ose, Split, Preservative Free, Intramuscular 11/01/2018 Influenza, Unspecified 11/15/2018 Surgical History Surgery Date Site/Laterality Comments REPLACEMENT TOTAL KNEE Bilateral TOTAL HIP ARTHROPLASTY Bilateral ROTATOR CUFF REPAIR Bilateral APPENDECTOMY TONSILLECTOMY CARPAL TUNNEL RELEASE Right CHOLECYSTECTOMY BACK SURGERY 09/20/2022 spinal surgery [facility] Medical History Medical History Date Comments Arthritis Hypertension Hypercholesteremia Asthma Gastric reflux Headache RBBB (right bundle branch block) Sleep apnea CPAP Thyroid disease GERD (gastroesophageal reflux disease) Parathyroid disease Depression Anxiety Family History Medical History Relation Name Comments Diabetes Father Heart attack Father Heart disease Father Hypertension Father Breast cancer Mother Cancer Mother Lung cancer Mother's Sister 1 Stomach cancer Mother's Sister 2 Relation Name Status Comments Father (Age 77) Mother (Age 70) Mother's Sister 1 Mother's Sister 2 Social History Tobacco Use Types Packs/Day Years Used Date Smoking Tobacco: Former Smokeless Tobacco: Never Tobacco Cessation:Counseling Given: Not Answered Alcohol Use Standard Drinks/Week Comments Not Currently 0 (1 standard drink = 0.6 oz pur e alcohol) AUDIT-C Answer Date Recorded Frequency of Alcohol Consumption Never 08/13/2018 Average Number of Drinks Not on file 019 Frequency of Binge Drinking Not on file 04/2018 Comments Unknown Sex and Gender Information Value Date Recorded Sex Assigned at Not on file Legal Sex Female 1:57 PM CDT Gender Identity Not on file Sexual Orientation Not on file Occupation Industry Job Start Date Job End Date retired Not on file Not on file Not on file Obstetrics History Last Filed Vital Signs Vital Sign Reading Time Taken Comments Blood Pressure 126/76 05/28/2024 9:55 AM CDT Pulse 60 05/28/2024 9:55 AM CDT Temperature 36.9 C (98.4 F) 05/28/2024 9:55 AM CDT Respiratory Rate 18 05/28/2024 9:55 AM CDT Oxygen Saturation 94% 05/28/2024 9:55 AM CDT Inhaled Oxygen Concentration - - Weight 99.2 kg (218 lb 12.8 oz) 11/14/2023 9:38 AM CDT Height 162.6 cm (5' 4) 05/28/2024 9:55 AM CDT Body Mass Index 37.56 11/14/2023 9:38 AM CDT Plan of Treatment Health Maintenance Due Date Last Done Comments Depression Screening 1945 Fall Risk Assessment 1945 Hepatitis C Screening 1945 Osteoporosis Screening-Bone Density Scan 1945 DTaP/Tdap/Td Vaccine (1 - Tdap) 1956 Hepatitis B Screening 08/10/1963 Pneumococcal vaccine 65+ (1 of 1 - PCV) 08/10/1995 Zoster Vaccine (1 of 2) 08/10/1995 Well Visit 65+ 2010 Influenza Vaccine (Season Ended) 2024 11/16/2019, 11/15/2018, 11/01/2018 Breast Cancer Screening-Mammogram Discontinued 024 Medical Devices Implanted Type Area Slot Manager Device Identifier Shelf Expiration Date Model / Serial / Lot [employer] [id number] Swivelock C 4.75mm 19.1mm Close Eyelet Tape Loop Vent [place] - [id number] Implanted:Qty: 1 on 03/20/2019 by Zan Dailey MD at [facility] Left: Shoulder [employer] 09/10/2020 AR-2324BCC T / / [id number] [employer] [id number] Swivelock C 4.75mm 19.1mm Closed Eyelet Vent [place] Suture - [id number] Implanted:Qty: 1 on 03/20/2019 by Zan Dailey MD at [facility] Left: Shoulder [employer] 12/11/2022 AR-2324BCC TT / / [id number] [employer] [id number] Swivelock Tigerwire Arthrex 4.75mm 22mm 2 Load 2 Tip Retention - [id number] Implanted:Qty: 2 on 03/20/2019 by Zan Dailey MD at [facility] Left: Shoulder [employer] 01/10/2023 AR-2324BCC -2 / / [id number] Procedures Procedure Name Priority Date/Time Associated Diagnosis Comments US BREAST RIGHT LIMITED Schedule Routine, Read Routine (OP Routine) 05/28/2024 11:51 AM CDT Abnormal mammogram of right breast DIAGNOSTIC MAMMOGRAM RIGHT W ANDREW Schedule Routine, Read Routine (OP Routine) 05/28/2024 11:05 AM CDT Abnormal mammogram of right breast DIAGNOSTIC MAMMOGRAM BILATERAL W ANDREW Schedule Routine, Read Routine (OP Routine) 11/14/2023 11:33 AM CDT Mass of right breast, unspecified quadrant Diffuse cystic mastopathy of left breast from Last 3 Months or Most Recently Relevant to Health Maintenance Results * US Breast Right Limited (05/28/2024 11:51 AM CDT) Anatomical Region Laterality Modality Breast Right Ultrasound 05/28/2024 11:5 7 AM CDT Impressions 05/28/2024 11:57 AM CDT Probably benign right breast mass, not significantly changed. Short-term 6 months follow-up with right breast mammogram and ultrasound recommended. Patient be due for annual mammography at that time. OVERALL FINAL ASSESSMENT: BI-RADS Category 3: Probably Benign. RECOMMENDATION: Recommend follow-up diagnostic breast imaging in 6 months with bilateral breast mammogram and right breast ultrasound. Electronically signed by: Bridget Pandey M.D. Narrative 05/28/2024 11:57 AM CDT EXAMINATION: DIAGNOSTIC MAMMOGRAM RIGHT W ANDREW, US BREAST RIGHT LIMITED HISTORY: 78-year-old wheelchair-bound patient presents for short-term follow-up of right lower central breast mass. COMPARISON: Priors dating back to February 2023 TECHNIQUE: Full field digital mammographic views of the RIGHT breast were performed, including computer aided detection (CAD) digital breast tomosynthesis (DBT). Directed ultrasound evaluation of the RIGHT breast was performed by the research epidemiologist. BREAST PARENCHYMAL COMPOSITION: There are scattered areas of fibroglandular density. MAMMOGRAM FINDINGS: In the right lower central breast, there is a persistent 0.8 cm mass, not significantly changed (given differences in measuring technique when remeasured). SONOGRAM FINDINGS: 6:00 7 cm from the nipple, 0.8 x 0.6 x 0.3 cm oval hypoechoic mass, not significantly changed given differences in measuring technique. Procedure Note Bridget Pandey MD - 05/28/2024 EXAMINATION: DIAGNOSTIC MAMMOGRAM RIGHT W ANDREW, US BREAST RIGHT LIMITED HISTORY: 78-year-old wheelchair-bound patient presents for short-term follow-up of right lower central breast mass. COMPARISON: Priors dating back to February 2023 TECHNIQUE: Full field digital mammographic views of the RIGHT breast were performed, including computer aided detection (CAD) digital breast tomosynthesis (DBT). Directed ultrasound evaluation of the RIGHT breast was performed by the research epidemiologist. BREAST PARENCHYMAL COMPOSITION: There are scattered areas of fibroglandular density. MAMMOGRAM FINDINGS: In the right lower central breast, there is a persistent 0.8 cm mass, not significantly changed (given differences in measuring technique when remeasured). SONOGRAM FINDINGS: 6:00 7 cm from the nipple, 0.8 x 0.6 x 0.3 cm oval hypoechoic mass, not significantly changed given differences in measuring technique. IMPRESSION: Probably benign right breast mass, not significantly changed. Short-term 6 months follow-up with right breast mammogram and ultrasound recommended. Patient be due for annual mammography at that time. OVERALL FINAL ASSESSMENT: BI-RADS Category 3: Probably Benign. RECOMMENDATION: Recommend follow-up diagnostic breast imaging in 6 months with bilateral breast mammogram and right breast ultrasound. Electronically signed by: Bridget Pandey M.D. us Margareth Cotter MD PhD IMG MAMMO PROCEDURES Final Result * Diagnostic Mammogram Right W Andrew (05/28/2024 11:05 AM CDT) Anatomical Region Laterality Modality Breast Right Mammography 05/28/2024 11:5 7 AM CDT Impressions 05/28/2024 11:57 AM CDT Probably benign right breast mass, not significantly changed. Short-term 6 months follow-up with right breast mammogram and ultrasound recommended. Patient be due for annual mammography at that time. OVERALL FINAL ASSESSMENT: BI-RADS Category 3: Probably Benign. RECOMMENDATION: Recommend follow-up diagnostic breast imaging in 6 months with bilateral breast mammogram and right breast ultrasound. Electronically signed by: Bridget Pandey M.D. Narrative 05/28/2024 11:57 AM CDT EXAMINATION: DIAGNOSTIC MAMMOGRAM RIGHT W ANDREW, US BREAST RIGHT LIMITED HISTORY: 78-year-old wheelchair-bound patient presents for short-term follow-up of right lower central breast mass. COMPARISON: Priors dating back to February 2023 TECHNIQUE: Full field digital mammographic views of the RIGHT breast were performed, including computer aided detection (CAD) digital breast tomosynthesis (DBT). Directed ultrasound evaluation of the RIGHT breast was performed by the research epidemiologist. BREAST PARENCHYMAL COMPOSITION: There are scattered areas of fibroglandular density. MAMMOGRAM FINDINGS: In the right lower central breast, there is a persistent 0.8 cm mass, not significantly changed (given differences in measuring technique when remeasured). SONOGRAM FINDINGS: 6:00 7 cm from the nipple, 0.8 x 0.6 x 0.3 cm oval hypoechoic mass, not significantly changed given differences in measuring technique. Procedure Note Bridget Pandey MD - 05/28/2024 EXAMINATION: DIAGNOSTIC MAMMOGRAM RIGHT W ANDREW, US BREAST RIGHT LIMITED HISTORY: 78-year-old wheelchair-bound patient presents for short-term follow-up of right lower central breast mass. COMPARISON: Priors dating back to February 2023 TECHNIQUE: Full field digital mammographic views of the RIGHT breast were performed, including computer aided detection (CAD) digital breast tomosynthesis (DBT). Directed ultrasound evaluation of the RIGHT breast was performed by the research epidemiologist. BREAST PARENCHYMAL COMPOSITION: There are scattered areas of fibroglandular density. MAMMOGRAM FINDINGS: In the right lower central breast, there is a persistent 0.8 cm mass, not significantly changed (given differences in measuring technique when remeasured). SONOGRAM FINDINGS: 6:00 7 cm from the nipple, 0.8 x 0.6 x 0.3 cm oval hypoechoic mass, not significantly changed given differences in measuring technique. IMPRESSION: Probably benign right breast mass, not significantly changed. Short-term 6 months follow-up with right breast mammogram and ultrasound recommended. Patient be due for annual mammography at that time. OVERALL FINAL ASSESSMENT: BI-RADS Category 3: Probably Benign. RECOMMENDATION: Recommend follow-up diagnostic breast imaging in 6 months with bilateral breast mammogram and right breast ultrasound. Electronically signed by: Bridget Pandey M.D. Margareth Cotter MD PhD IMG MAMMO PROCEDURES Final Result * Diagnostic Mammogram Bilateral W Andrew (11/14/2023 11:33 AM CDT) Anatomical Region Laterality Modality Breast Bilateral Mammography 11/14/2023 12:1 0 PM CDT Impressions 11/14/2023 12:43 PM CDT 1. Unchanged oval circumscribed 7 mm mass at 6:00, 7 cm from the nipple in the RIGHT breast. Recommend follow-up imaging in 6 months with RIGHT diagnostic mammogram and ultrasound. 2. No findings to the patient RIGHT breast pain. 3. No mammographic evidence of malignancy in either breast. OVERALL FINAL ASSESSMENT: BI-RADS Category 3: Probably Benign. RECOMMENDATION: 1. Recommend follow-up diagnostic breast imaging in 6 months with diagnostic RIGHT mammogram and ultrasound. 2. Clinical follow-up for the patient's pain. Dr. Arnaldo Cummings MD discussed the above findings and recommendations with the patient, who expressed her understanding of the management plan. Dictated by: Arnaldo Cummings MD The radiology attending physician has personally reviewed this study, and had reviewed and/or edited this written report and agrees with it. Electronically signed by: Bridget Pandey M.D. Narrative 11/14/2023 12:43 PM CDT EXAMINATION: BILATERAL DIGITAL DIAGNOSTIC MAMMOGRAM INCLUDING CAD AND BILATERAL DIGITAL BREAST TOMOSYNTHESIS; RIGHT BREAST SONOGRAM HISTORY: 78-year-old woman presents for annual mammogram and short-term follow-up for BI-RADS Category 3 mass within the RIGHT breast. The patient also describes focal pain within the upper outer RIGHT breast on physical examination today. COMPARISON: 04/24/2023 and 03/05/2023 TECHNIQUE: Full field digital mammographic views of BOTH breasts were performed, including computer aided detection (CAD) and BILATERAL digital breast tomosynthesis (DBT). Directed ultrasound evaluation of the RIGHT breast was performed. BREAST PARENCHYMAL COMPOSITION: There are scattered areas of fibroglandular density. MAMMOGRAM FINDINGS: In the RIGHT upper outer quadrant in the area of focal pain, indicated by the square marker, there is no mammographic abnormality. Again seen is a 0.6 cm oval mass in the lower central RIGHT breast at posterior depth, unchanged. This will be evaluated same day ultrasound. No suspicious mass, distortion, or microcalcification in the LEFT breast. SONOGRAM FINDINGS: RIGHT breast, 6:00, 7 cm from the nipple, there is an unchanged well-circumscribed oval hypoechoic mass measuring 0.6 x 0.3 x 0.7 cm, unchanged. RIGHT breast, 12:00, 7 cm from the nipple, area of focal pain, there is no solid or cystic mass suggestive of malignancy. Procedure Note Bridget Pandey MD - 11/14/2023 EXAMINATION: BILATERAL DIGITAL DIAGNOSTIC MAMMOGRAM INCLUDING CAD AND BILATERAL DIGITAL BREAST TOMOSYNTHESIS; RIGHT BREAST SONOGRAM HISTORY: 78-year-old woman presents for annual mammogram and short-term follow-up for BI-RADS Category 3 mass within the RIGHT breast. The patient also describes focal pain within the upper outer RIGHT breast on physical examination today. COMPARISON: 04/24/2023 and 03/05/2023 TECHNIQUE: Full field digital mammographic views of BOTH breasts were performed, including computer aided detection (CAD) and BILATERAL digital breast tomosynthesis (DBT). Directed ultrasound evaluation of the RIGHT breast was performed. BREAST PARENCHYMAL COMPOSITION: There are scattered areas of fibroglandular density. MAMMOGRAM FINDINGS: In the RIGHT upper outer quadrant in the area of focal pain, indicated by the square marker, there is no mammographic abnormality. Again seen is a 0.6 cm oval mass in the lower central RIGHT breast at posterior depth, unchanged. This will be evaluated same day ultrasound. No suspicious mass, distortion, or microcalcification in the LEFT breast. SONOGRAM FINDINGS: RIGHT breast, 6:00, 7 cm from the nipple, there is an unchanged well-circumscribed oval hypoechoic mass measuring 0.6 x 0.3 x 0.7 cm, unchanged. RIGHT breast, 12:00, 7 cm from the nipple, area of focal pain, there is no solid or cystic mass suggestive of malignancy. IMPRESSION: 1. Unchanged oval circumscribed 7 mm mass at 6:00, 7 cm from the nipple in the RIGHT breast. Recommend follow-up imaging in 6 months with RIGHT diagnostic mammogram and ultrasound. 2. No findings to the patient RIGHT breast pain. 3. No mammographic evidence of malignancy in either breast. OVERALL FINAL ASSESSMENT: BI-RADS Category 3: Probably Benign. RECOMMENDATION: 1. Recommend follow-up diagnostic breast imaging in 6 months with diagnostic RIGHT mammogram and ultrasound. 2. Clinical follow-up for the patient's pain. Dr. Arnaldo Cummings MD discussed the above findings and recommendations with the patient, who expressed her understanding of the management plan. Dictated by: Arnaldo Cummings MD The radiology attending physician has personally reviewed this study, and had reviewed and/or edited this written report and agrees with it. Electronically signed by: Bridget Pandey M.D. Summer Sims NP IMG MAMMO PROCEDURES Final Result from Last 3 Months or Most Recently Relevant to Health Maintenance [place] [address] MEDICARE MEDICARE [facility] MEDICARE Care Teams Child Care Center Administrator Relationship Specialty Start Date End Date Denys uLndy MD PCP - General Family Medicine 12/15/18 [place] [id number] [facility] [address] [place] [address] Physician Date Night Caregiver Orthopedic Surgery 03/20/19 Anjali Fatima MD [address] [facility] [address] [place] [address] Referring Physician Obstetrics and Gynecology 04/17/23
--- OUTSIDE RECORDS SUMMARY | 2024-07-23 11:08 | XMS_ITS | Referral Summary ---
Author Organization [facility] Physician Office Building [address] [place] [phone] Care Team Providers Care Operating Systems Specialist Name Role Phone Denys Lundy MD Primary Care Provider [phone] Corrine Wolfe Unavailable [phone] Anjali Fatima MD Unavailable [phone] Encounters Date Type Department Care Team Description 05/28/2024 Orders Only [facility] Surgery [address] [place] [phone] Margareth Cotter MD PhD Mass of right breast, unspecified quadrant (Primary Dx); Abnormal mammogram of right breast 05/28/2024 9:30 AM CDT - 05/28/2024 11:59 PM CDT Hospital Encounter [facility] - Breast Imaging [address] [place] [address] Floor 8 [place] [address] Abnormal mammogram of right breast Discharge Disposition: Discharge to home or self care 05/28/2024 10:00 AM CDT - 05/28/2024 11:59 PM CDT Hospital Encounter [facility] - Breast Imaging [address] [place] [address] Floor 8 [place] [address] Abnormal mammogram of right breast Discharge Disposition: Discharge to home or self care 05/28/2024 9:30 AM CDT Office Visit [facility] Surgery [address] [place] [address] 8 [place] [address] Margareth Cotter MD PhD Abnormal mammogram of right breast (Primary Dx); Mass of right breast, unspecified quadrant 05/27/2024 Orders Only [facility] Surgery [address] [facility] Floor 8 [place] [address] Margareth Cotter MD PhD Abnormal mammogram of right breast (Primary Dx) from Last 3 Months Allergies Active Allergy Reactions Criticality Noted Date Comments Epinephrine Chest tightness Medium 08/13/2018 Latex Rash Medium 08/13/2018 Penicillin G Rash Medium 08/13/2018 Rosuvastatin Muscle pain Medium 10/21/2018 Sulfa (Sulfonamide Antibiotics) Dizziness Low 07/04/2018 Dexamethasone Rash Medium 08/13/2018 Medications colesevelam (WELCHOL) [...] provided. Assessment & Plan (03/14/2020 10:30 AM FIXED INCOME DIRECTOR): Patient's progresses and slowed by her ill [...] shoulder. Assessment & Plan (03/31/2019 11:51 AM FIXED INCOME DIRECTOR): Patient was found have a full-thickness rotator cuff tear that was T-shaped. It was repaired and at this point she can begin working on pendulum exercises. Formal physical therapy was prescribed. 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 The patient patient's therapy was extended period as she completes out the formal therapy would encourage her to continue working on home exercises to help strengthen the arm. Assessment & Plan (12/15/2018 11:17 AM FIXED INCOME DIRECTOR): Patient's history and exam is consistent with [...] of the acromion would likely be beneficial Immunizations Immunization Administration Dates Next Due Influenza, Quadrivalent, Hig h Dose, Preservative Free, Intrr 11/16/2019 Influenza, Trivalent, High D ose, Split, Preservative Free, Intramuscular 11/01/2018 Influenza, Unspecified 11/15/2018 Social History Tobacco Use Types Packs/Day Years [...] file Not on file Not on file Last Filed Vital Signs Vital Sign Reading [...] 11/14/2023 9:38 AM CDT Plan of Treatment Not on file Medical Devices Implanted Type Area Radiologic Technologist Chief Device Identifier Shelf Expiration Date Model / Serial / Lot [employer] Ar-2324bcct Swivelock C 4.75mm 19.1mm Close Eyelet Tape Loop Vent [place] - [id number] Implanted:Qty: 1 on 03/20/2019 by Zan Dailey MD at [facility] Left: Shoulder [employer] 09/10/2020 AR-2324BCC T / / [id number] [employer] Ar-2324bcctt Swivelock C 4.75mm 19.1mm Closed Eyelet Vent [place] Suture - [id number] Implanted:Qty: 1 on 03/20/2019 by Zan Dailey MD at [facility] Left: Shoulder [employer] 12/11/2022 AR-2324BCC TT / / [id number] [employer] [id number] Swivelock Tigerwire Arthrex 4.75mm 22mm 2 Load 2 Tip Retention - [id number] Implanted:Qty: 2 on 03/20/2019 by Zan Dailey MD at [facility] Left: Shoulder [employer] 01/10/2023 AR-2324BCC -2 / / [id number] Procedures Procedure Name Priority Date/Time Associated Diagnosis [...] the RIGHT breast was performed by the embossing machine operator. BREAST PARENCHYMAL COMPOSITION: There are scattered areas [...] the RIGHT breast was performed by the embossing machine operator. BREAST PARENCHYMAL COMPOSITION: There are scattered areas [...] the RIGHT breast was performed by the embossing machine operator. BREAST PARENCHYMAL COMPOSITION: There are scattered areas [...] the RIGHT breast was performed by the embossing machine operator. BREAST PARENCHYMAL COMPOSITION: There are scattered areas [...] Electronically signed by: Bridget Pandey M.D. Summer Chance Bethany EPITAXIAL REACTOR TECHNICIAN IMG MAMMO PROCEDURES Final Result from Last 3 Months or Most Recently Relevant to Health Maintenance Insurance MEDICARE MEDICARE [employer] MEDICARE Care Teams Operating Systems Specialist Relationship Specialty Start Date End Date Denys Lundy MD PCP - General Family Medicine 12/15/18 [place] [address] [facility] [address] [place] [address] Physician Putty Worker Orthopedic Surgery 03/20/19 Anjali Fatima MD [address] [facility] [address] [place] [address] Referring Physician Obstetrics and Gynecology 04/17/23
--- NOTE | 2024-07-23 11:43 | ECG_ITS ---
Test Date: 2024-07-23 12:19:06 Measurements Intervals Arthur Rate: 45 P: 62 WA: 208 QRS: 39 QRSD: 129 T: 23 QT: 411 QTc: 358 Interpretive Statements SINUS BRADYCARDIA WITH FIRST DEGREE AV BLOCK WITH SINUS ARRHYTHMIA RIGHT BUNDLE BRANCH BLOCK LOW VOLTAGE IN PRECORDIAL LEADS BASELINE ARTIFACT- I, II, III, AVR, AVL, AVF ABNORMAL ECG No previous ECG available for comparison Electronically Signed On 07-23-2024 12:57:26 CDT by Jose Graves D.O.
[2024-07-23 12:34] LABS: Hemoglobin 15.4 g/dL (12.0-15.0); Mean Corpuscular HGB Conc 31.4 g/dl (32-36); Mean Corpuscular Hemoglobin 28.6 pg (26-34); Mean Corpuscular Volume 91.1 fl (80-100); Mean Platelet Volume 9.4 fl (7.4-10.4); Platelet Count Result 191 k/mm3 (150-375); Red Blood Count 5.38 M/mm3 (4.2-5.4); Red Cell Distribution Width 13.1 % (11.5-14.5)
[2024-07-23 12:44] LABS: Anion Gap 7 mmol/L (4-12); Blood Urea Nitrogen 12 mg/dL (7-17); Carbon Dioxide 26 mmol/L (22-30); Chloride 106 mmol/L (98-107); Estimated Glomerular Filt Rate > 60; Glucose 87 mg/dL (65-110); Potassium 4.2 mmol/L (3.4-5.0); Sodium 139 mmol/L (137-145)
[2024-07-23 12:46] LABS: Prothrombin Time 13.4 Seconds (11.1-14.7)
[2024-07-23 12:53] LABS: Add Urine Microscopic? YES; Appearance Urine Clear (Clear); Bacteria Urine None Seen /hpf; Bilirubin Urine Negative (Negative); Blood Urine Negative (Negative); Color Urine Yellow (Yellow); Glucose Urine UA Negative (Negative); Ketones Urine Negative (Negative); Leukocyte Esterase Ur Trace LEU/UL (Negative); Nitrate Urine Negative (Negative); Non Pathogenic Casts 0-2; Protein Urine Negative (Negative); RBC Urine 0-2 /hpf (0-2); Squamous Epithelial Cell Urine None Seen /hpf (Few); Urobilinogen Urine 0.2 mg/dL (<2.0); WBC Urine 0-5 /hpf (0-3); pH Urine 5.5 (5.0-9.0)
== END 2024-07-23 10:04 | disposition home or self-care (01) ==
PROVIDERS: PCP Family Medicine; Visit Provider Neurological Surgery
DX: M50.20 Other cervical disc displacement, unspecified cervical region (principal); I10 Essential (primary) hypertension; Z01.818 Encounter for other preprocedural examination; I45.10 Unspecified right bundle-branch block; I44.0 Atrioventricular block, first degree
CPT/HCPCS: 36415; 80048; 81001; 85027; 85610; 85730; 86850; 86900; 86901; 93005

== ENCOUNTER 2025-01-28 10:46 | Outpatient (CLI) | payer MEDICARE, SELFPAY ==
--- NOTE | ~2025-01-28 | XR_ITS ---
EXAMINATION: XR chest 2V, 01/28/2025 11:08 RECEIVING LEAD HISTORY: J45.30 - Mild persistent asthma, uncomplicated COMPARISON: No comparisons available. Technique: 2 views obtained. Findings: The lungs are clear, no effusion. No pneumothorax. Heart is normal size. Mediastinal and hilar contours are within normal limits. Bony thorax no acute abnormality. Impression: No acute cardiopulmonary abnormality. Reviewed, dictated and finalized at location P. IVING LEAD Impression: No acute cardiopulmonary abnormality.
--- NOTE | 2025-01-28 11:21 | ECG_ITS ---
Test Date: 2025-01-28 11:30:40 Measurements Intervals Foley Rate: 54 P: 67 OK: 198 QRS: 15 QRSD: 108 T: 30 QT: 422 QTc: 401 Interpretive Statements SINUS BRADYCARDIA WITH SINUS ARRHYTHMIA LOW QRS VOLTAGE IN PRECORDIAL LEADS RIGHT BUNDLE BRANCH BLOCK BASELINE ARTIFACT- V3, V5 ABNORMAL ECG Compared to ECG 07/23/2024 12:19:06 HEART RATE HAS INCREASED Electronically Signed On 01-28-2025 13:14:44 DRILLING CONTRACTOR by Jose Graves D.O.
--- OUTSIDE RECORDS SUMMARY | 2025-01-28 12:08 | XMS_ITS | Clinical Summary ---
Author Organization [facility] Physician Office Building [address] [place] [address] Care Team Providers Care Transformation Specialist Name Role Phone Denys Lundy MD Primary Care Provider [phone] Corrine Wolfe Unavailable [phone] Anjali Fatima MD Unavailable Allergies Active Allergy Reactions Criticality Noted Date [...] omeprazole (PriLOSEC) 40 mg capsule 08/12/[address] (PROTONIX) 20 mg EC tablet Take 1 tablet (20 mg total) by mouth daily 09/24/2024 Active empagliflozin (JARDIANCE) 10 mg tablet Take 1 tablet (10 mg total) by mouth daily 30 tablet 11 11/11/2024 Active Active Problems Problem Noted Date Diagnosed [...] provided. Assessment & Plan (03/14/2020 10:30 AM CREMATOR): Patient's progresses and slowed by her ill [...] shoulder. Assessment & Plan (03/31/2019 11:51 AM CREMATOR): Patient was found have a full-thickness rotator cuff tear that was T-shaped. It was repaired and at this point she can begin working on pendulum exercises. Formal physical therapy was prescribed. 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 The patient patient's therapy was extended period as she completes out the formal therapy would encourage her to continue working on home exercises to help strengthen the arm. Assessment & Plan (12/15/2018 11:17 AM CREMATOR): Patient's history and exam is consistent with [...] Encounters Date Type Department Care Team Description 12/31/2024 9:30 AM CREMATOR Office Visit [facility] Medicine Surgery [facility] Floor 8 [place] [id number] Margareth Cotter MD PhD Abnormal mammogram of right breast (Primary Dx) 12/31/2024 9:12 AM CREMATOR - 12/31/2024 11:59 PM CREMATOR Hospital Encounter [facility] - Breast Imaging [address] Floor 8 [place] [address] Mass of right breast, unspecified quadrant; Abnormal mammogram of right breast Discharge Disposition: Discharge to home or self care 12/31/2024 8:45 AM CREMATOR - 12/31/2024 11:59 PM CREMATOR Hospital Encounter [facility] - Breast Imaging [address] Floor 8 [place] [address] Mass of right breast, unspecified quadrant; Abnormal mammogram of right breast Discharge Disposition: Discharge to home or self care 11/11/2024 10:00 AM CDT Office Visit [facility] [address] [place] [address] Sami Clark MD Essential hypertension (Primary Dx); RBBB; DANIEL on CPAP; Sleep disorder breathing from Last 3 Months Immunizations Immunization Administration Dates Next Due Influenza, Quadrivalent, Hig h Dose, Preservative Free, Intrr 11/16/2019 Influenza, Trivalent, High D ose, Split, Preservative Free, Intramuscular 01/14/2024,04/19/2020,11/01/2018 Influenza, Unspecified 11/15/2018 Moderna SARS-CoV-2 Monovalen t Vaccination (12+ YRS) 05/10/2021,05/20/2020,04/19/2020 Surgical History Surgery Date Site/Laterality Comments REPLACEMENT TOTAL KNEE Bilateral TOTAL HIP ARTHROPLASTY Bilateral ROTATOR CUFF REPAIR Bilateral APPENDECTOMY TONSILLECTOMY CARPAL TUNNEL RELEASE Right CHOLECYSTECTOMY BACK SURGERY 09/20/2022 spinal surgery [facility] BREAST CYST ASPIRATION Left in her 30s Medical History Medical History Date Comments Arthritis [...] Binge Drinking Not on file 04/2018 Comments No Sex and Gender Information Value Date Recorded Sex Assigned at Not on file Legal Sex Female 1:57 PM CDT Gender Identity Not on file Sexual Orientation Not on file Occupation Industry Job Start Date Job End Date retired Not on file Not on file Not on file Obstetrics History Para Term AB IAB SAB Ectopic Multiple Livin g Live Births 0 0 0 0 0 0 0 0 0 0 0 Last Filed Vital Signs Vital Sign Reading Time Taken Comments Blood Pressure 110/71 12/31/2024 10:36 AM CREMATOR Pulse 60 12/31/2024 10:36 AM CREMATOR Temperature 36.4 C (97.5 F) 12/31/2024 10:36 AM CREMATOR Respiratory Rate 18 12/31/2024 10:36 AM CREMATOR Oxygen Saturation 94% 12/31/2024 10:36 AM CREMATOR Inhaled Oxygen Concentration - - Weight 95.3 kg (210 lb) 12/31/2024 9:29 AM CREMATOR Height 162.6 cm (5' 4) 12/31/2024 9:16 AM CREMATOR Body Mass Index 36.05 12/31/2024 9:16 AM CREMATOR Plan of Treatment Health Maintenance Due Date Last Done Comments Depression Screening 1945 Fall Risk Assessment 1945 Hepatitis C Screening 1945 Osteoporosis Screening-Bone Density Scan 1945 DTaP/Tdap/Td Vaccine (1 - Tdap) 1956 Hepatitis B Screening 08/10/1963 Pneumococcal vaccine 65+ (1 of 2 - PCV) 1964 Zoster Vaccine (1 of 2) 08/10/1995 Well Visit 65+ 2010 Covid-19 Vaccine (4 - 2024-2 6 season) 2024 05/10/2021, 05/20/2020, 04/19/2020 Influenza Vaccine (#1) 2024 , 04/19/2020, 11/16/2019, Additional history exists Breast Cancer Screening-Mammogram Discontinued 025, 11/14/2023 Medical Devices Implanted Type Area Ip Counsel Device Identifier Shelf Expiration Date Model / Serial / Lot [employer] Ar-2324bcct Swivelock C 4.75mm 19.1mm Close Eyelet Tape Loop Vent [place] - [id number] Implanted:Qty: 1 on 03/20/2019 by Zan Dailey MD at [facility] Left: Shoulder [employer] 09/10/2020 AR-2324BCC T / / [id number] [employer] Ar-2324bcctt Swivelock C 4.75mm 19.1mm Closed Eyelet Vent [place] Suture - [id number] Implanted:Qty: 1 on 03/20/2019 by Zan Dailey MD at [facility] Left: Shoulder [employer] 12/11/2022 AR-2324BCC TT / / [id number] [employer] [id number] Swivelock Tigerwire Arthrex 4.75mm 22mm 2 Load 2 Tip Retention - [id number] Implanted:Qty: 2 on 03/20/2019 by Zan Dailey MD at [facility] Left: Shoulder [employer] 01/10/2023 AR-2324BCC -2 / / [id number] Procedures Procedure Name Priority Date/Time Associated Diagnosis Comments US BREAST RIGHT LIMITED Schedule Routine, Read Routine (OP Routine) 12/31/2024 10:28 AM CREMATOR Mass of right breast, unspecified quadrant Abnormal mammogram of right breast DIAGNOSTIC MAMMOGRAM BILATERAL W ANDREW Schedule Routine, Read Routine (OP Routine) 12/31/2024 10:08 AM CREMATOR Mass of right breast, unspecified quadrant Abnormal mammogram of right breast from Last 3 Months Results * US Breast Right Limited (12/31/2024 10:28 AM CREMATOR) Anatomical Region Laterality Modality Breast Right Ultrasound 12/31/2024 10:5 3 AM CREMATOR Addenda Addendum by Bridget Pandey MD on 12/31/2024 11:25 AM CREMATOR The examination title should read: 1. BILATERAL digital diagnostic mammogram and BILATERAL digital breast tomosynthesis. 2. RIGHT breast sonogram. The technique should read: Full field digital mammographic views of both breasts was performed, including computer aided detection (CAD) and digital breast tomosynthesis (DBT). Directed ultrasound evaluation of the RIGHT breast was performed. The recommendations should read: Recommend follow-up bilateral diagnostic breast imaging in 12 months. Dictated by: Rico Calix MD The radiology attending physician has personally reviewed this study, and had reviewed and/or edited this written report and agrees with it. Electronically signed by: Bridget Pandey M.D. Impressions 12/31/2024 11:05 AM CREMATOR Stable probably benign right breast mass, not significantly changed in size dating back to 04/16/2023. Recommend short-term 6 month follow-up when patient is due for annual mammography at that time. OVERALL FINAL ASSESSMENT: BI-RADS Category 3: Probably Benign. RECOMMENDATION: Recommend follow-up bilateral diagnostic breast imaging and right breast ultrasound in 6 months. Dictated by: Rico Calix MD The radiology attending physician has personally reviewed this study, and had reviewed and/or edited this written report and agrees with it. Electronically signed by: Bridget Pandey M.D. Narrative 12/31/2024 11:05 AM CREMATOR EXAMINATION: RIGHT UNILATERAL DIGITAL DIAGNOSTIC MAMMOGRAM AND DIGITAL BREAST TOMOSYNTHESIS; RIGHT BREAST SONOGRAM HISTORY: 79-year-old woman presenting for short-term follow-up for right lower central breast mass. COMPARISON: Comparison 05/28/2024. TECHNIQUE: Full field digital mammographic views of the RIGHT breast were performed, including computer aided detection (CAD) and digital breast tomosynthesis (DBT). Directed ultrasound evaluation of the RIGHT breast was performed. BREAST PARENCHYMAL COMPOSITION: There are scattered areas of fibroglandular density. MAMMOGRAM FINDINGS: In the RIGHT lower central breast, is a persistent 0.8 cm mass, not substantially changed dating back to 04/16/2023. SONOGRAM FINDINGS: In the 6:00 position, 7 cm from the nipple, is a oval parallel hypoechoic RIGHT breast mass, which measures 0.6 x 0.3 x 0.7 cm, which is unchanged in size compared to ultrasound 05/28/2024. us Margareth Cotter MD PhD IMG MAMMO PROCEDURES Edited Result - Final * Diagnostic Mammogram Bilateral W Andrew (12/31/2024 10:08 AM CREMATOR) Anatomical Region Laterality Modality Breast Bilateral Mammography 12/31/2024 10:5 3 AM CREMATOR Addenda Addendum by Bridget Pandey MD on 12/31/2024 11:25 AM CREMATOR The examination title should read: 1. BILATERAL digital diagnostic mammogram and BILATERAL digital breast tomosynthesis. 2. RIGHT breast sonogram. The technique should read: Full field digital mammographic views of both breasts was performed, including computer aided detection (CAD) and digital breast tomosynthesis (DBT). Directed ultrasound evaluation of the RIGHT breast was performed. The recommendations should read: Recommend follow-up bilateral diagnostic breast imaging in 12 months. Dictated by: Rico Calix MD The radiology attending physician has personally reviewed this study, and had reviewed and/or edited this written report and agrees with it. Electronically signed by: Bridget Pandey M.D. Impressions 12/31/2024 11:05 AM CREMATOR Stable probably benign right breast mass, not significantly changed in size dating back to 04/16/2023. Recommend short-term 6 month follow-up when patient is due for annual mammography at that time. OVERALL FINAL ASSESSMENT: BI-RADS Category 3: Probably Benign. RECOMMENDATION: Recommend follow-up bilateral diagnostic breast imaging and right breast ultrasound in 6 months. Dictated by: Rico Calix MD The radiology attending physician has personally reviewed this study, and had reviewed and/or edited this written report and agrees with it. Electronically signed by: Bridget Pandey M.D. Narrative 12/31/2024 11:05 AM CREMATOR EXAMINATION: RIGHT UNILATERAL DIGITAL DIAGNOSTIC MAMMOGRAM AND DIGITAL BREAST TOMOSYNTHESIS; RIGHT BREAST SONOGRAM HISTORY: 79-year-old woman presenting for short-term follow-up for right lower central breast mass. COMPARISON: Comparison 05/28/2024. TECHNIQUE: Full field digital mammographic views of the RIGHT breast were performed, including computer aided detection (CAD) and digital breast tomosynthesis (DBT). Directed ultrasound evaluation of the RIGHT breast was performed. BREAST PARENCHYMAL COMPOSITION: There are scattered areas of fibroglandular density. MAMMOGRAM FINDINGS: In the RIGHT lower central breast, is a persistent 0.8 cm mass, not substantially changed dating back to 04/16/2023. SONOGRAM FINDINGS: In the 6:00 position, 7 cm from the nipple, is a oval parallel hypoechoic RIGHT breast mass, which measures 0.6 x 0.3 x 0.7 cm, which is unchanged in size compared to ultrasound 05/28/2024. Margareth Cotter MD PhD IMG MAMMO PROCEDURES Edited Result - Final from Last 3 Months Insurance MEDICARE MEDICARE [facility] [place] [id number] MEDICARE [facility] MEDICARE SUPPLEMENT Care Teams Transformation Specialist Relationship Specialty Start Date End Date Denys Lundy MD PCP - General Family Medicine 12/15/18 [place] [address] [facility] [address] [place] [address] Physician Velvet Cutter Orthopedic Surgery 03/20/19 Anjali Fatima MD [address] [place] [address] Referring Physician Obstetrics and Gynecology 04/17/23
--- OUTSIDE RECORDS SUMMARY | 2025-01-28 12:08 | XMS_ITS | Clinical Summary ---
Author Organization [facility] Address [address] [facility] [place] [address] Care Team Providers Care Commodity Buyer Name Role Phone Denys Lundy MD Primary Care Provider [phone] Source Comments [facility],non-owned Affiliates and Associated Physician Practices is amultiple site organization consisting of ambulatory clinics and hospital sitesin [place], [place], [place] and [place]. This disclosure is being madepursuant to the Care Everywhere program and may not contain all information available regarding this patient. Last updated 17.[facility] Allergies Active Allergy Reactions Criticality Noted Date [...] g 4 times daily Active HYDROcodone-acetaminop hen (Rueter) 10-325 MG tablet Take 1 (one) tablet by mouth every 4 hours as needed For pain. Active lidocaine (Lidoderm) 5 % patch 1 (one) patch once daily 02/02/2 024 Active olopatadine (Patanase) 0.6 % nasal solution [place] 1 (one) spray into each nostril 2 times daily 023 Active kqsyhryl-nitgiycban-hf lymyxin (Neosporin) [phone] ophthalmic ointment as needed Active finasteride (Proscar) [...] workup of the neck would be indicated Encounters Date Type Department Care Team Description 12/16/2024 Telephone [facility] - General Dermatology [address] [place] [phone] John Iraheta MD Treatment (Seeking call from Nurse to discuss condition. Pls call, thank you.) 11/27/2024 Travel 11/13/2024 Telephone [facility] - Dermatology [address] [facility] [place] [phone] John Iraheta MD Refill Request from Last 3 Months Immunizations Immunization Administration Dates Next Due INFLUENZA [...] on file Legal Sex Female 3:41 PM DELIVERY TECHNICIAN Gender Identity Not on file Sexual Orientation Not on file Plan of Treatment Health Maintenance Due Date Last Done Comments BONE DENSITY TESTING 1945 MEDICARE AWV 12 MONTHS 1945 DTAP/TDAP/TD VACCINES (1 - Tdap) 1964 PNEUMOCOCCAL VACCINE 50+ (1 of 1 - PCV) 08/10/1995 ZOSTER VACCINE (1 of 2) 08/10/1995 Respiratory Syncytial Virus (RSV) Vaccine Pt: or over 60 yrs (1 - 1-dose 75+ series) 2020 DEPRESSION SCREENING 02/12/2024 COVID-19 VACCINE ( season) 2024 04/08/2022, 05/10/2021, 05/20/2020, Additional history exists INFLUENZA VACCINE (#1) 2024 , 04/19/2020, 11/15/2018, Additional history exists HEPATITIS B VACCINE Aged Out No longe r eligible based on patient's age to complete this topic HIB VACCINE Aged Out No longer eligi ble based on patient's age to complete this topic HPV VACCINE Aged Out No longer eligi ble based on patient's age to complete this topic MENINGOCOCCAL (Group B) VACCINE SHARED DECISION-MAKING Aged Out No longer eligible based on patient's age to complete this topic MENINGOCOCCAL GROUPS A/C/Y/W VACCINE Aged Out No longer eligible based on patient's age to complete this topic Insurance MEDICARE Care Teams Commodity Buyer Relationship Specialty Start Date End Date Denys Lundy MD [address] [place] [address] PCP - General 04/02/19
== END 2025-01-28 10:47 | disposition home or self-care (01) ==
PROVIDERS: PCP Family Medicine; Visit Provider Family Medicine
DX: J45.30 Mild persistent asthma, uncomplicated (principal); I97.89 Other postprocedural complications and disorders of the circulatory system, not elsewhere classified; I48.91 Unspecified atrial fibrillation
CPT/HCPCS: 71046; 93005

== ENCOUNTER 2025-02-09 09:15 | Outpatient (CLI) | payer MEDICARE, BC, SELFPAY ==
--- OUTSIDE RECORDS SUMMARY | 2025-02-09 09:38 | XMS_ITS | Clinical Summary ---
Author Organization [facility] Physician Office Building [address] [place] [address] Care Team Providers Care Manager Procurement Name Role Phone Denys Lundy MD Primary Care Provider [phone] Corrine Wolfe Unavailable [phone] Anjali Fatima MD Unavailable [phone] Allergies Active Allergy Reactions Criticality Noted Date [...] provided. Assessment & Plan (03/14/2020 10:30 AM AMMUNITION AND EXPLOSIVES HANDLER): Patient's progresses and slowed by her ill [...] shoulder. Assessment & Plan (03/31/2019 11:51 AM AMMUNITION AND EXPLOSIVES HANDLER): Patient was found have a full-thickness rotator cuff tear that was T-shaped. It was repaired and at this point she can begin working on pendulum exercises. Formal physical therapy was prescribed. She is to return for follow-up in four weeks Nontraumatic complete tear of left rotator cuff 12/15/2018 Assessment & Plan (12/14/2019 11:10 AM AMMUNITION AND EXPLOSIVES HANDLER): Patient had undergone revision right cuff repair with her therapy disrupted during COVID-19. The patient patient's therapy was extended period as she completes out the formal therapy would encourage her to continue working on home exercises to help strengthen the arm. Assessment & Plan (12/15/2018 11:17 AM AMMUNITION AND EXPLOSIVES HANDLER): Patient's history and exam is consistent with [...] Department Care Team Description 12/31/2024 9:30 AM AMMUNITION AND EXPLOSIVES HANDLER Office Visit [facility] Medicine Surgery [facility] Floor 8 [place] [id number] Margareth Cotter MD PhD Abnormal mammogram of right breast (Primary Dx) 12/31/2024 9:12 AM AMMUNITION AND EXPLOSIVES HANDLER - 12/31/2024 11:59 PM AMMUNITION AND EXPLOSIVES HANDLER Hospital Encounter [facility] - Breast Imaging [address] [place] [address] Mass of right breast, unspecified quadrant; Abnormal mammogram of right breast Discharge Disposition: Discharge to home or self care 12/31/2024 8:45 AM AMMUNITION AND EXPLOSIVES HANDLER - 12/31/2024 11:59 PM AMMUNITION AND EXPLOSIVES HANDLER Hospital Encounter [facility] - Breast Imaging [address] [place] [address] Mass of right breast, unspecified quadrant; Abnormal mammogram of right breast Discharge Disposition: Discharge to home or self care 11/11/2024 10:00 AM CDT Office Visit [facility] [address] [place] [address] Sami Clark MD Essential hypertension [...] Right CHOLECYSTECTOMY BACK SURGERY 09/20/2022 spinal surgery [facility] BREAST CYST ASPIRATION Left in her 30s [...] Comments Blood Pressure 110/71 12/31/2024 10:36 AM AMMUNITION AND EXPLOSIVES HANDLER Pulse 60 12/31/2024 10:36 AM AMMUNITION AND EXPLOSIVES HANDLER Temperature 36.4 C (97.5 F) 12/31/2024 10:36 AM AMMUNITION AND EXPLOSIVES HANDLER Respiratory Rate 18 12/31/2024 10:36 AM AMMUNITION AND EXPLOSIVES HANDLER Oxygen Saturation 94% 12/31/2024 10:36 AM AMMUNITION AND EXPLOSIVES HANDLER Inhaled Oxygen Concentration - - Weight 95.3 kg (210 lb) 12/31/2024 9:29 AM AMMUNITION AND EXPLOSIVES HANDLER Height 162.6 cm (5' 4) 12/31/2024 9:16 AM AMMUNITION AND EXPLOSIVES HANDLER Body Mass Index 36.05 12/31/2024 9:16 AM AMMUNITION AND EXPLOSIVES HANDLER Plan of Treatment Health Maintenance Due Date [...] 025, 11/14/2023 Medical Devices Implanted Type Area Fish And Wildlife Technician Device Identifier Shelf Expiration Date Model / Serial / Lot [employer] [id number] Swivelock C 4.75mm 19.1mm Close Eyelet Tape Loop Vent [place] - [id number] Implanted:Qty: 1 on 03/20/2019 by Zan Dailey MD at [facility] Left: Shoulder [employer] 09/10/2020 AR-2324BCC T / / [id number] [employer] [id number] Swivelock C 4.75mm 19.1mm Closed Eyelet Vent [place] Suture - [id number] Implanted:Qty: 1 on 03/20/2019 by Zan Dailey MD at [facility] Left: Shoulder [employer] 12/11/2022 AR-2324BCC TT / / [id number] [employer] [id number] Swivelock Tigerwire Arthrex 4.75mm 22mm 2 Load 2 Tip Retention - [id number] Implanted:Qty: 2 on 03/20/2019 by Zan Dailey MD at [facility] Left: Shoulder [employer] 01/10/2023 AR-2324BCC -2 / / [id number] Procedures Procedure Name Priority Date/Time Associated Diagnosis Comments US BREAST RIGHT LIMITED Schedule Routine, Read Routine (OP Routine) 12/31/2024 10:28 AM AMMUNITION AND EXPLOSIVES HANDLER Mass of right breast, unspecified quadrant Abnormal mammogram of right breast DIAGNOSTIC MAMMOGRAM BILATERAL W ANDREW Schedule Routine, Read Routine (OP Routine) 12/31/2024 10:08 AM AMMUNITION AND EXPLOSIVES HANDLER Mass of right breast, unspecified quadrant Abnormal mammogram of right breast from Last 3 Months Results * US Breast Right Limited (12/31/2024 10:28 AM AMMUNITION AND EXPLOSIVES HANDLER) Anatomical Region Laterality Modality Breast Right Ultrasound 12/31/2024 10:5 3 AM AMMUNITION AND EXPLOSIVES HANDLER Addenda Addendum by Bridget Pandey MD on 12/31/2024 11:25 AM AMMUNITION AND EXPLOSIVES HANDLER The examination title should read: 1. BILATERAL [...] Bridget Pandey M.D. Impressions 12/31/2024 11:05 AM AMMUNITION AND EXPLOSIVES HANDLER Stable probably benign right breast mass, not [...] Bridget Pandey M.D. Narrative 12/31/2024 11:05 AM AMMUNITION AND EXPLOSIVES HANDLER EXAMINATION: RIGHT UNILATERAL DIGITAL DIAGNOSTIC MAMMOGRAM AND [...] Mammogram Bilateral W Andrew (12/31/2024 10:08 AM AMMUNITION AND EXPLOSIVES HANDLER) Anatomical Region Laterality Modality Breast Bilateral Mammography 12/31/2024 10:5 3 AM AMMUNITION AND EXPLOSIVES HANDLER Addenda Addendum by Bridget Pandey MD on 12/31/2024 11:25 AM AMMUNITION AND EXPLOSIVES HANDLER The examination title should read: 1. BILATERAL [...] Bridget Pandey M.D. Impressions 12/31/2024 11:05 AM AMMUNITION AND EXPLOSIVES HANDLER Stable probably benign right breast mass, not [...] Bridget Pandey M.D. Narrative 12/31/2024 11:05 AM AMMUNITION AND EXPLOSIVES HANDLER EXAMINATION: RIGHT UNILATERAL DIGITAL DIAGNOSTIC MAMMOGRAM AND [...] from Last 3 Months Insurance MEDICARE MEDICARE [facility] [place] [id number] MEDICARE [facility] MEDICARE SUPPLEMENT Care Teams Manager Procurement Relationship Specialty Start Date End Date Denys Lundy MD PCP - General Family Medicine 12/15/18 [place] [address] [facility] [address] [place] [address] Physician Habilitation Specialist Orthopedic Surgery 03/20/19 Anjali Fatima MD [address] [place] [address] Referring Physician Obstetrics and Gynecology 04/17/23
--- OUTSIDE RECORDS SUMMARY | 2025-02-09 09:38 | XMS_ITS | Patient Health Record ---
Author Organization [facility] Address [address] [place] [id number] Care Team Providers Care Pilot Plant Research Technician Name Role Phone Russell Harden Unavailable Unavailable Reason For Referral No Information Plan Of Treatment No Information Insurance Providers Payer Name Payer Address Payer Phone Subscriber Number Group Number Insured Name Patient Relationship to Insured Coverage Start Date Coverage End Date Medicare [employer] [place] [address] [place] [phone] [id number] Bethany Leach Self - patient is the insured [facility] [address] [facility] [address] [place] [address] [id number] Bethany Leach Self - patient is the insured
--- OUTSIDE RECORDS SUMMARY | 2025-02-09 09:38 | XMS_ITS | Clinical Summary ---
Author Organization [facility] Address [address] [place] [address] Care Team Providers Care Emergency Services Dispatcher Name Role Phone Denys Lundy MD Primary Care Provider [phone] Source Comments [facility],non-owned Affiliates and Associated Physician Practices is amultiple site organization consisting of ambulatory clinics and hospital sitesin [place], [place], [place] and [place]. This disclosure is being madepursuant to the Care Everywhere program and may not contain all information available regarding this patient. Last updated 17.[facility] Allergies Active Allergy Reactions Criticality Noted Date [...] g 4 times daily Active HYDROcodone-acetaminop hen ([place]man) 10-325 MG tablet Take 1 (one) tablet by mouth every 4 hours as needed For pain. Active lidocaine (Lidoderm) 5 % patch 1 (one) patch once daily 02/02/2 024 Active olopatadine (Patanase) 0.6 % nasal solution [place] 1 (one) spray into each nostril 2 times daily 023 Active qabpcztn-jofwyjtzhu-pw lymyxin (Neosporin) [id number] ophthalmic ointment as needed Active finasteride (Proscar) [...] Telephone [facility] - General Dermatology [address] [place] [phone] John Iraheta MD Treatment (Seeking call from Nurse to discuss condition. 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
[2025-02-09 10:23] LABS: Anion Gap 4 mmol/L (4-12); Blood Urea Nitrogen 15 mg/dL (7-17); Calcium 11.7 mg/dL (8.4-10.2); Carbon Dioxide 27 mmol/L (22-30); Chloride 108 mmol/L (98-107); Estimated Glomerular Filt Rate > 60; Glucose 108 mg/dL (65-110); Potassium 4.5 mmol/L (3.4-5.0); Sodium 139 mmol/L (137-145)
== END 2025-02-09 09:16 | disposition home or self-care (01) ==
LOC: ANHSURGERY 09:24
PROVIDERS: PCP Family Medicine; Visit Provider Neurological Surgery
DX: Z01.812 Encounter for preprocedural laboratory examination (principal); M47.816 Spondylosis without myelopathy or radiculopathy, lumbar region
CPT/HCPCS: 36415; 80048; 86850; 86900; 86901